=== PATIENT | female | born 1980 | race Caucasian/White ===

== ENCOUNTER 2016-11-20 22:38 | Emergency (ER) | payer MEDICAID ==
[2016-11-20 22:53] VITALS: BP 129/61
[2016-11-20] MEDS ORDERED: Ondansetron 4 MG/2 ML SDV IVPUSH ONE (23:28)
[2016-11-20] MEDS ORDERED: HYDROmorphone 1 MG/ML Syringe IVPUSH STA (23:28)
[2016-11-20] MEDS ORDERED: Sodium Chloride 0.9% 1,000 ML IV SCH (23:30)
--- NOTE | 2016-11-21 00:50 | EDM.PDOC ---
ED HPI GENERAL MEDICAL PROBLEM - General Chief Complaint: Abdominal Pain Stated Complaint: LOWER ABDOMINAL PAIN Time Seen by Provider: 11/20/16 22:53 Source of Information: Reports: Patient, RN Notes Reviewed, Significant Other ( Boyfriend) History Limitations: Reports: No Limitations - History of Present Illness INITIAL COMMENTS - FREE TEXT/NARRATIVE: The patient states that she has been experiencing sharp left lower quadrant abdominal pain for the past 2 weeks. She states that it is constant. It does not radiate. It is made worse if she sits up, and made better if she is supine. No change if she urinates or defecates. She states that she has had some nausea , but no emesis. She has had watery, nonbloody diarrhea for the past 2 or 3 days. No dysuria, urinary urgency or frequency, however, she does report that she has had about 5 episodes of seeing blood flecks in her urine over the past 10 days. No recent fever. No prior similar symptoms. The patient has never had a colonoscopy. The patient underwent a hysterectomy in August 2015. The patient does not have a PCP. Left Lower Abdomen Pain Score (Numeric/FACES): 8 - Related Data Allergies Allergy/AdvReac Type Severity Reaction Status Date / Time meperidine [From Demerol] Allergy Hives Verified 11/21/16 00:43 penicillin G Allergy Anaphylactic Verified 11/21/16 00:43 Shock Sulfa (Sulfonamide Allergy Hives Verified 11/21/16 00:43 Antibiotics) Home Meds: Home Meds Hydrocodone/Acetaminophen [[place] 5-325 Tablet] 1 - 2 tab PO Q6H PRN #20 tablet 11/21/16 [Rx] Levofloxacin [Levaquin] 750 mg PO QPM #7 tablet 11/21/16 [Rx] metroNIDAZOLE [Flagyl] 500 mg PO Q8H #21 tablet 11/21/16 [Rx] Past Medical History Gastrointestinal History: Reports: 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: - Past Surgical History HEENT Surgical History: Reports: Adenoidectomy, Myringotomy w Tube(s) (bilateral ), Tonsillectomy GI Surgical History: Reports: Cholecystectomy Female Surgical History: Reports: Section (x 1), Hysterectomy Musculoskeletal Surgical History: Reports: Arthroscopic Knee (right) Social & Family History - Tobacco Use Smoking Status *Q: Current Some Day Smoker Years of Tobacco use: 17 Packs/Tins Daily: 0.2 - Caffeine Use Caffeine Use: Reports: Coffee, Tea Other Caffeine Use: lots of coffee - Alcohol Use Alcohol Use History: Yes Alcohol Use Frequency: Socially - Recreational Drug Use Recreational Drug Use: No - Living Situation & Occupation Living situation: Reports: , with Significant Other (Boyfriend), with Family (4 kids) Occupation: Unemployed ED ROS GENERAL - Review of Systems Review Of Systems: See Below Constitutional: Reports: No Symptoms HEENT: Reports: No Symptoms Respiratory: Reports: No Symptoms Cardiovascular: Reports: No Symptoms Endocrine: Reports: No Symptoms GI/Abdominal: Reports: No Symptoms : Reports: No Symptoms Musculoskeletal: Reports: No Symptoms Skin: Reports: No Symptoms Neurological: Reports: No Symptoms Psychiatric: Reports: No Symptoms Hematologic/Lymphatic: Reports: No Symptoms Immunologic: Reports: No Symptoms ED EXAM, GI/ABD - Physical Exam Exam: See Below Exam Limited By: No Limitations General Appearance: Alert, WD/WN, No Apparent Distress Eyes: Bilateral: Normal Appearance, EOMI Ears: Normal External Exam, Hearing Grossly Normal Nose: Normal Inspection, No Blood Throat/Mouth: Normal Inspection, Normal Lips, Normal Voice, No Airway Compromise Head: Atraumatic, Normocephalic Neck: Normal Inspection, Full Range of Motion Respiratory/Chest: No Respiratory Distress, Lungs Clear, Normal Breath Sounds, No Accessory Muscle Use Cardiovascular: Normal Peripheral Pulses, Regular Rate, Rhythm, No Gallop, No JVD, No Murmur, No Rub GI/Abdominal: Normal Bowel Sounds, Soft, No Organomegaly, No Distention, No Abnormal Bruit, No Mass, Tenderness (LLQ only. Nontender elsewhere.), Other ( Obese). No: Rebound (Female) Exam: Deferred Rectal (Female) Exam: Deferred Back Exam: Normal Inspection, Full Range of Motion. No: CVA Tenderness (L), CVA Tenderness (R) Extremities: Normal Inspection, Normal Range of Motion, No Pedal Edema, Normal Capillary Refill Neurological: Alert, Oriented, Normal Cognition, No Motor/Sensory Deficits Psychiatric: Normal Affect Skin Exam: Warm, Dry, Intact, Normal Color, No Rash Lymphatic: No Adenopathy Course - Vital Signs Last Recorded V/S: Last Vital Signs Temp 36.8 C 11/20/16 22:52 Pulse 76 11/20/16 22:52 Resp 20 11/20/16 22:52 BP 129/61 11/20/16 22:52 Pulse Ox 98 11/20/16 22:52 - Orders/Labs/Meds Orders: Active Orders 24 hr Category Date Time Status Abdomen Pelvis w Cont [CT] Stat Exams 11/20/16 23:28 Taken Sodium Chloride 0.9% [Normal Saline] 1,000 ml Med 11/20/16 23:30 Active IV ASDIRECTED Medication Orders Sodium Chloride (Normal Saline) 1,000 mls @ 150 mls/hr IV ASDIRECTED BRISSA Last Admin: 11/20/16 23:52 Dose: 150 mls/hr Labs: Laboratory Tests 11/20/16 11/20/16 11/21/16 Range/Units 23:40 23:40 00:25 WBC 11.32 H (3.98-10.04) K/mm3 RBC 4.78 (3.98-5.22) M/mm3 Hgb 12.3 (11.2-15.7) gm/L Hct 37.3 (34.1-44.9) % MCV 78.0 L (79.4-94.8) fl MCH 25.7 (25.6-32.2) pg MCHC 33.0 (32.2-35.5) g/dl RDW Std Deviation 45.3 (36.4-46.3) fL Plt Count 309 (182-369) K/mm3 MPV 12.2 (9.4-12.3) fl Neutrophils % (Manual) 62 H (40-60) % Band Neutrophils % 0 (0-10) % Lymphocytes % (Manual) 27 (20-40) % Atypical Lymphs % 5 % Monocytes % (Manual) 4 (2-10) % Eosinophils % (Manual) 1 (0.7-5.8) % Basophils % (Manual) 1 (0.1-1.2) Platelet Estimate Adequate Plt Morphology Comment Normal Poikilocytosis 1+ slight Anisocytosis 1+ slight Microcytosis 1+ slight Tear Drop Cells 1+ slight RBC Morph Comment Abnormal Sodium 140 (136-145) mEq/L Potassium 3.7 (3.5-5.1) mEq/L Chloride 104 (98-107) mEq/L Carbon Dioxide 28 (21-32) mEq/L Anion Gap 11.7 (5-15) BUN 14 (7-18) mg/dL Creatinine 0.8 (0.55-1.02) mg/dL Est Cr Clr Drug Dosing 91.88 mL/min Estimated GFR (MDRD) > 60 (>60) mL/min BUN/Creatinine Ratio 17.5 (14-18) Glucose 134 H (74-106) mg/dL Calcium 8.7 (8.5-10.1) mg/dL Total Bilirubin 0.3 (0.2-1.0) mg/dL AST 14 L (15-37) U/L ALT 31 (14-59) U/L Alkaline Phosphatase 62 (46-116) U/L Total Protein 7.5 (6.4-8.2) g/dl Albumin 3.6 (3.4-5.0) g/dl Globulin 3.9 gm/dL Albumin/Globulin Ratio 0.9 L (1-2) Lipase 129 (73-393) U/L Urine Color Yellow (Yellow) Urine Appearance Slt cloudy H (Clear) Urine pH 7.0 (5.0-8.0) Ur Specific [place] 1.025 (1.005-1.030) Urine Protein Negative (Negative) Urine Glucose (UA) Negative (Negative) Urine Ketones Negative (Negative) Urine Occult Blood Negative (Negative) Urine Nitrite Negative (Negative) Urine Bilirubin Negative (Negative) Urine Urobilinogen 0.2 (0.2-1.0) Ur Leukocyte Esterase Negative (Negative) Urine RBC 0-5 (0-5) /hpf Urine WBC 0-5 (0-5) /hpf Ur Epithelial Cells 0-5 (0-5) /hpf Urine Bacteria Rare (FEW) /hpf Urine Mucus Many H (FEW) /hpf Meds: Medications Generic Name Dose Route Start Last Admin Trade Name Freq PRN Reason Stop Dose Admin Sodium Chloride 1,000 mls @ 150 mls/hr 11/20/16 23:30 11/20/16 23:52 Normal Saline IV 150 mls/hr ASDIRECTED BRISSA Administration Discontinued Medications Generic Name Dose Route Start Last Admin Trade Name Freq PRN Reason Stop Dose Admin Hydromorphone HCl 0.5 mg 11/20/16 23:28 11/20/16 23:55 Dilaudid IVPUSH 11/20/16 23:29 0.5 mg ONETIME STA Administration Hydromorphone HCl 0.5 mg 11/21/16 02:03 11/21/16 02:07 Dilaudid IVPUSH 11/21/16 02:04 0.5 mg ONETIME ONE Administration Levofloxacin 750 mg 11/21/16 02:31 Levaquin PO 11/21/16 02:32 ONETIME STA Metronidazole 500 mg 11/21/16 02:32 Flagyl PO 11/21/16 02:33 ONETIME STA Ondansetron HCl 4 mg 11/20/16 23:28 11/20/16 23:52 Zofran IVPUSH 11/20/16 23:29 4 mg ONETIME ONE Administration - Re-Assessments/Exams Free Text/Narrative Re-Assessment/Exam: 11/21/16 02:28 CT of the abdomen and pelvis with oral and IV contrast is read by [facility] as "Mild sigmoid colon diverticulitis changes." 11/21/16 02:42 Test results discussed with the patient and her . I have ordered oral Levaquin and Flagyl, and will e-prescribe a 7 day course. The patient meets criterion for outpatient management. I will prescribe Lafayette for pain. I will have the patient follow-up with Dr. Galvan on 11/25/2016. Departure - Departure Time of Disposition: 02:44 Disposition: Home, Self-Care 01 Condition: Fair Clinical Impression: Acute diverticulitis - Discharge Information Prescriptions: Hydrocodone/Acetaminophen [[place] 5-325 Tablet] 1 - 2 tab PO Q6H PRN #20 tablet PRN Reason: Pain (Severe 7-10) Referrals: PCP,None [Primary Care Provider] - Joan Galvan [Physician] - Forms: ED Department Discharge Additional Instructions: You were seen in the emergency room for lower left abdominal pain for the past 2 weeks. Workup in the ER included blood work, a urinalysis, and a CT scan of your abdomen and pelvis. The CT scan found diverticulitis, an infection of your descending colon. You have been started on the antibiotics Levaquin and Flagyl. Take one tablet of Levaquin each evening, starting 11/21/2016, as prescribed. Take one tablet of Flagyl every 8 hours, starting this morning, as prescribed. Finish these antibiotics, unless told otherwise by a doctor. Take 1 to 2 tablets of the pain medicine Lafayette every 6-8 hours, as needed for pain. If you take Lafayette, do not drive or operate heavy machinery for 12 hours afterwards. Lafayette will likely cause constipation, which you would like to avoid. Consider taking a liquid diet, or a low residue diet for the next few days. Follow-up with the family practitioner Dr. Lamar this coming 11/25/2016. If any other problems, please do not hesitate to return to the ER. - My Orders Last 24 Hours: My Active Orders 11/20/16 23:28 Abdomen Pelvis w Cont [CT] Stat 11/20/16 23:30 Sodium Chloride 0.9% [Normal Saline] 1,000 ml IV ASDIRECTED - Assessment/Plan Last 24 Hours: My Active Orders 11/20/16 23:28 Abdomen Pelvis w Cont [CT] Stat 11/20/16 23:30 Sodium Chloride 0.9% [Normal Saline] 1,000 ml IV ASDIRECTED
[2016-11-21] MEDS ORDERED: HYDROmorphone 0.5 MG/0.5 ML Syringe IVPUSH ONE (02:03)
[2016-11-21] MEDS ORDERED: Levofloxacin 750 MG Tab PO STA (02:31)
[2016-11-21] MEDS ORDERED: metroNIDAZOLE 500 MG Tab PO STA (02:32)
--- NOTE | 2016-11-24 14:55 | CT ---
CT abdomen and pelvis Technique: Multiple axial sections were obtained from above the dome of the diaphragm inferiorly through the pubic symphysis. Intravenous contrast was utilized. Oral contrast is also noted. Delayed images were obtained through the bladder. Findings: Mild inflammatory change is seen within the left lower abdomen near the junction of the descending and sigmoid regions. Diverticuli are seen within this area and findings are felt compatible with mild diverticulitis. No fluid collections are seen to indicate indicate abscess. Visualized lung bases show nothing acute. Liver shows no focal parenchymal abnormality. Small amount of contrast is seen within the distal esophagus compatible with reflux. Spleen appears within normal limits. Adrenal glands show no nodule. Kidneys show symmetric contrast enhancement without hydronephrosis or mass. Aorta shows no aneurysmal dilatation. Pancreas is within normal limits. No retroperitoneal adenopathy or mesenteric abnormalities are seen. Appendix is seen which appears to be normal. No pelvic mass or adenopathy is seen. Delayed images show contrast within the distal ureters and bladder. Bone window settings were reviewed which appear within normal limits for the patient's age. Incidental note of fat containing umbilical hernia. Impression: 1. Findings compatible with mild diverticulitis near the junction of the sigmoid and descending colon. 2. Contrast within the distal esophagus which is compatible with reflux. 3. Other incidental findings as noted above. Diagnostic code #3 I agree with preliminary report issued by [facility] ([facility] report finalized on 11/21/16, 3:15 AM Central Time)
== END 2016-11-21 03:00 | disposition home or self-care (01) ==
LOC: JD.ED 22:38
DX: K57.32 Diverticulitis of large intestine without perforation or abscess without bleeding (principal); F17.210 Nicotine dependence, cigarettes, uncomplicated; Z90.49 Acquired absence of other specified parts of digestive tract; Z98.890 Other specified postprocedural states; Z90.710 Acquired absence of both cervix and uterus; Z96.22 Myringotomy tube(s) status; Z88.0 Allergy status to penicillin; Z88.2 Allergy status to sulfonamides; Z88.6 Allergy status to analgesic agent
CPT/HCPCS: 36415; 74177; 80053; 81001; 83690; 85025; 96361; 96374; 96375; 96376; 99284; A9270; J1170; J2405; J7040; P9612; 99283

== ENCOUNTER 2016-11-28 12:13 | Emergency (ER) | payer MEDICAID ==
--- NOTE | 2016-11-28 14:35 | EDM.PDOC ---
[id number] Complaint: LEFT LEG PAIN Time Seen by Provider: 11/28/16 12:25 Source of Information: Reports: Patient History Limitations: Reports: No Limitations - History of Present Illness INITIAL COMMENTS - FREE TEXT/NARRATIVE: 36 -year-old female who is a history of provoked DVTs and context of and travel presents with left lower extremity swelling. She states that she's had swelling in her legs off and on for a while but has noticed worsening swelling in the left leg particularly over the past week. No injury. She has pain throughout the leg its worst in the lower leg area. Describes it as a burning pain. She was evaluated at an outside emergency department where an ultrasound was done and she was told that there is no blood clot and they were not certain why she was having pain in her leg. She comes in today for reevaluation because the pain and swelling seem to be worsening. No additional complaint. No fever. No numbness. No tingling. Left Leg Pain Score (Numeric/FACES): 8 - Related Data Allergies Allergy/AdvReac Type Severity Reaction Status Date / Time meperidine [From Demerol] Allergy Hives Verified 11/21/16 00:43 penicillin G Allergy Anaphylactic Verified 11/21/16 00:43 Shock Sulfa (Sulfonamide Allergy Hives Verified 11/21/16 00:43 Antibiotics) Home Meds: Home Meds Levofloxacin [Levaquin] 750 mg PO QPM #7 tablet 11/21/16 [Rx] metroNIDAZOLE [Flagyl] 500 mg PO Q8H #21 tablet 11/21/16 [Rx] Doxycycline [Vibramycin] 100 mg PO Q12HR #20 cap 11/28/16 [Rx] Ibuprofen 800 mg PO TID PRN #30 tablet 11/28/16 [Rx] Past Medical History Gastrointestinal History: Reports: 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: - Past Surgical History HEENT Surgical History: Reports: Adenoidectomy, Myringotomy w Tube(s), Tonsillectomy GI Surgical History: Reports: Cholecystectomy Female Surgical History: Reports: Section, Hysterectomy Musculoskeletal Surgical History: Reports: Arthroscopic Knee Social & Family History - Family History Family Medical History: Noncontributory - Tobacco Use Smoking Status *Q: Never Smoker Years of Tobacco use: 17 Packs/Tins Daily: 0.2 - Caffeine Use Caffeine Use: Reports: Coffee Other Caffeine Use: lots of coffee - Recreational Drug Use Recreational Drug Use: No - Living Situation & Occupation Living situation: Reports: , with Significant Other (Boyfriend), with Family (4 kids) Occupation: Unemployed Review of Systems - Review of Systems Review Of Systems: See Below Constitutional: Denies: Fever Eyes: Reports: No Symptoms Ears: Reports: No Symptoms Nose: Reports: No Symptoms Mouth/Throat: Reports: No Symptoms Respiratory: Denies: Shortness of Breath, Cough Cardiovascular: Denies: Chest Pain GI/Abdominal: Reports: No Symptoms Musculoskeletal: Reports: Leg Pain Neurological: Reports: No Symptoms Psychiatric: Reports: No Symptoms ED EXAM, GENERAL - Physical Exam Exam: See Below Exam Limited By: Intoxication General Appearance: Alert, WD/WN, No Apparent Distress Eye Exam: Bilateral Eye: PERRL Ears: Normal External Exam Nose: Normal Inspection Throat/Mouth: Normal Inspection Head: Atraumatic Neck: Normal Inspection Respiratory/Chest: No Respiratory Distress Cardiovascular: Normal Peripheral Pulses Peripheral Pulses: 2+: Dorsalis Pedis (L) Extremities: Other (LLE mild non-pitting edema, subtle mild erythema from ankle to knee, warm to touch, confluent, mildly tender throughout, no crepitus, skin intact, distal motor/perfusion intact) Neurological: Alert, Oriented, No Motor/Sensory Deficits Psychiatric: Normal Affect, Normal Mood Skin Exam: Warm, Dry, Intact, Normal Color Course - Vital Signs Last Recorded V/S: Last Vital Signs Temp 36.9 C 11/28/16 17:56 Pulse 65 11/28/16 17:56 Resp 15 11/28/16 17:56 BP 126/65 11/28/16 17:56 Pulse Ox 97 11/28/16 17:56 - Orders/Labs/Meds Labs: Laboratory Tests 11/28/16 11/28/16 Range/Units 16:25 16:25 WBC 9.14 (3.98-10.04) K/mm3 RBC 4.93 (3.98-5.22) M/mm3 Hgb 12.7 (11.2-15.7) gm/L Hct 39.3 (34.1-44.9) % MCV 79.7 (79.4-94.8) fl MCH 25.8 (25.6-32.2) pg MCHC 32.3 (32.2-35.5) g/dl RDW Std Deviation 46.6 H (36.4-46.3) fL Plt Count 298 (182-369) K/mm3 MPV 12.6 H (9.4-12.3) fl Neut % (Auto) 58.2 (34.0-71.1) % Lymph % (Auto) 24.7 (19.3-51.7) % [place] % (Auto) 8.9 (4.7-12.5) % Eos % (Auto) 7.5 H (0.7-5.8) Baso % (Auto) 0.5 (0.1-1.2) % Neut # (Auto) 5.31 (1.56-6.13) K/mm3 Lymph # (Auto) 2.26 (1.18-3.74) K/mm3 [place] # (Auto) 0.81 H (0.24-0.36) K/mm3 Eos # (Auto) 0.69 H (0.04-0.36) K/mm3 Baso # (Auto) 0.05 (0.01-0.08) K/mm3 Manual Slide Review Normal smear Sodium 140 (136-145) mEq/L Potassium 3.9 (3.5-5.1) mEq/L Chloride 103 (98-107) mEq/L Carbon Dioxide 30 (21-32) mEq/L Anion Gap 10.9 (5-15) BUN 15 (7-18) mg/dL Creatinine 0.8 (0.55-1.02) mg/dL Est Cr Clr Drug Dosing 95.45 mL/min Estimated GFR (MDRD) > 60 (>60) mL/min BUN/Creatinine Ratio 18.8 H (14-18) Glucose 92 (74-106) mg/dL Calcium 8.7 (8.5-10.1) mg/dL Total Bilirubin 0.6 (0.2-1.0) mg/dL AST 26 (15-37) U/L ALT 35 (14-59) U/L Alkaline Phosphatase 60 (46-116) U/L Total Protein 8.0 (6.4-8.2) g/dl Albumin 3.7 (3.4-5.0) g/dl Globulin 4.3 gm/dL Albumin/Globulin Ratio 0.9 L (1-2) Meds: Medications Discontinued Medications Generic Name Dose Route Start Last Admin Trade Name Freq PRN Reason Stop Dose Admin Doxycycline Hyclate 100 mg 11/28/16 17:17 11/28/16 17:41 Vibramycin PO 11/28/16 17:18 100 mg ONETIME ONE Administration Ibuprofen 800 mg 11/28/16 16:10 11/28/16 16:15 Motrin PO 11/28/16 16:11 800 mg ONETIME ONE Administration Ketorolac Tromethamine 30 mg 11/28/16 15:30 11/28/16 16:16 Toradol IVPUSH 11/28/16 15:31 Not Given ONETIME ONE - Re-Assessments/Exams Free Text/Narrative Re-Assessment/Exam: 11/28/16 17:18 U/S neg for DVT. Will treat for cellulitis. Discussed return precautions. Departure - Departure Time of Disposition: 17:18 Disposition: Home, Self-Care 01 Clinical Impression: Cellulitis of leg without foot, left - Discharge Information Prescriptions: Doxycycline [Vibramycin] 100 mg PO Q12HR #20 cap Ibuprofen 800 mg PO TID PRN #30 tablet PRN Reason: Pain Instructions: Cellulitis, Adult Referrals: PCP,None [Primary Care Provider] - Forms: ED Department Discharge Additional Instructions: 1. Take doxycycline as prescribed 2. Take ibuprofen as needed for pain 3. Follow up with primary doctor next week. Call [phone] if you'd like to schedule with a provider here 4. Return to the ED for a recheck if leg pain or swelling are getting worse, or if you get a fever, or for any other concerning symptoms
[2016-11-28] MEDS ORDERED: Ketorolac 30 MG/ML SDV IVPUSH ONE (15:30)
[2016-11-28] MEDS ORDERED: Ibuprofen 800 MG Tab PO ONE (16:10)
--- NOTE | 2016-11-28 16:54 | US ---
Left lower extremity deep venous ultrasound: Duplex and color flow imaging was obtained of the left common femoral, proximal greater saphenous, superficial femoral, popliteal, posterior tibial and peroneal veins. Right common femoral vein was also evaluated. Findings: Normal phasic flow, augmentation and compression is seen. Impression: 1. No evidence of deep venous thrombosis is seen within the left lower extremity or within the right common femoral vein. Diagnostic code #1
[2016-11-28] MEDS ORDERED: Doxycycline 100 MG Cap PO ONE (17:17)
[2016-11-28 18:05] VITALS: BP 126/65
== END 2016-11-28 17:49 | disposition home or self-care (01) ==
LOC: JD.ED 12:13
DX: L03.116 Cellulitis of left lower limb (principal); Z96.22 Myringotomy tube(s) status; Z90.710 Acquired absence of both cervix and uterus; Z90.49 Acquired absence of other specified parts of digestive tract; Z98.890 Other specified postprocedural states; Z88.0 Allergy status to penicillin; Z88.2 Allergy status to sulfonamides; Z88.6 Allergy status to analgesic agent
CPT/HCPCS: 36415; 80053; 85025; 93971; 99284; A9270; 99283

== ENCOUNTER 2016-12-21 11:22 | Emergency (ER) | payer MEDICAID ==
[2016-12-21 11:29] VITALS: BP 124/68
--- NOTE | 2016-12-21 12:06 | EDM.PDOC ---
ED HPI GENERAL MEDICAL PROBLEM - General Chief Complaint: Eye Problems Stated Complaint: L EYE REDNESS/SWELLING Time Seen by Provider: 12/21/16 11:48 Source of Information: Reports: Patient History Limitations: Reports: No Limitations - History of Present Illness INITIAL COMMENTS - FREE TEXT/NARRATIVE: The patient presents with left eye, redness, irritation and clear drainage. This all started this morning. She noticed it after she was at a garage sale. She put her contacts in this morning and everything looked good. She has since taken the contacts out. She does not think she got anything in her eye. She has no vision changes. Onset: Sudden Duration: Hour(s): Location: Reports: Other (Left eye) Quality: Reports: Other (Irritated) Severity: Mild Improves with: Reports: None Worsens with: Reports: None Context: Reports: Activity (She was at a garage sale after she noticed it) Associated Symptoms: Reports: No Other Symptoms Left Eye Pain Score (Numeric/FACES): 5 - Related Data Allergies Allergy/AdvReac Type Severity Reaction Status Date / Time meperidine [From Demerol] Allergy Hives Verified 12/21/16 11:29 penicillin G Allergy Anaphylactic Verified 12/21/16 11:29 Shock Sulfa (Sulfonamide Allergy Hives Verified 12/21/16 11:29 Antibiotics) Home Meds: Home Meds Loratadine [Claritin] 10 mg PO DAILY #10 tablet 12/21/16 [Rx] Past Medical History Gastrointestinal History: Reports: 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: - Past Surgical History HEENT Surgical History: Reports: Adenoidectomy, Myringotomy w Tube(s), Tonsillectomy GI Surgical History: Reports: Cholecystectomy Female Surgical History: Reports: Section, Hysterectomy Musculoskeletal Surgical History: Reports: Arthroscopic Knee Social & Family History - Family History Family Medical History: Noncontributory - Tobacco Use Smoking Status *Q: Never Smoker Years of Tobacco use: 17 Packs/Tins Daily: 0.2 - Caffeine Use Caffeine Use: Reports: Coffee Other Caffeine Use: lots of coffee - Recreational Drug Use Recreational Drug Use: No - Living Situation & Occupation Living situation: Reports: , with Significant Other (Boyfriend), with Family (4 kids) Occupation: Unemployed ED ROS GENERAL - Review of Systems Review Of Systems: See Below Constitutional: Reports: No Symptoms HEENT: Reports: Other (Eye irritation and redness) Respiratory: Reports: No Symptoms Cardiovascular: Reports: No Symptoms Endocrine: Reports: No Symptoms GI/Abdominal: Reports: No Symptoms : Reports: No Symptoms Musculoskeletal: Reports: No Symptoms Skin: Reports: No Symptoms Neurological: Reports: No Symptoms ED EXAM GENERAL W FULL EYE - Physical Exam Exam: See Below Exam Limited By: No Limitations General Appearance: Alert, No Apparent Distress Eye Exam: Left Eye: Conjunctival Injection (with edema to the lateral conjunctiva), Bilateral Eye: EOMI, PERRL Eyelids: Left: Lid Everted for Exam, Bilateral: Normal Appearance Conjunctiva & Sclera: Left: Conjunctival Edema, Injected Cornea Exam: Left: Normal Appearance Extraocular Movements: Bilateral: Intact Pupillary Size: Bilateral: 4 mm Pupillary Reaction: Bilateral: Brisk Anterior Chamber: Left: Normal Appearance Ears: Normal External Exam Nose: Normal Inspection Head: Atraumatic, Normocephalic Respiratory/Chest: No Respiratory Distress Course - Vital Signs Last Recorded V/S: Last Vital Signs Temp 97.4 F 12/21/16 11:24 Pulse 74 12/21/16 11:24 Resp 16 12/21/16 11:24 BP 124/68 12/21/16 11:24 Pulse Ox 98 12/21/16 11:24 - Re-Assessments/Exams Free Text/Narrative Re-Assessment/Exam: 12/21/16 12:05 I do not see a corneal abrasion and this does not appear to be a bacterial conjunctivitis. It appears to be an allergy. I will put her on some claritin daily for 10 days. Departure - Departure Time of Disposition: 12:10 Disposition: Home, Self-Care 01 Condition: Good Clinical Impression: Allergic conjunctivitis, left eye - Discharge Information Prescriptions: Loratadine [Claritin] 10 mg PO DAILY #10 tablet Referrals: Joan Galvan [Primary Care Provider] - Forms: ED Department Discharge Additional Instructions: Take the claritin daily for 10 days. Use visin drops. 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
== END 2016-12-21 12:25 | disposition home or self-care (01) ==
LOC: JD.ED 11:22
DX: H10.12 Acute atopic conjunctivitis, left eye (principal); Z88.0 Allergy status to penicillin; Z88.2 Allergy status to sulfonamides; Z88.8 Allergy status to other drugs, medicaments and biological substances; Z79.899 Other long term (current) drug therapy; Z96.22 Myringotomy tube(s) status; Z90.49 Acquired absence of other specified parts of digestive tract; Z90.710 Acquired absence of both cervix and uterus; Z98.890 Other specified postprocedural states
CPT/HCPCS: 99283

== ENCOUNTER 2017-01-08 08:10 | Day surgery (SDC) | payer MEDICAID ==
[~2017-01-08 08:10] MED LIST: Lactated Ringers 1,000 ML IV SCH; Lidocaine 1% 4 ML ONE; Lidocaine 1%/Sod Bicarbonate in NS 8.4% 1 ML Syringe PRN; Propofol 200 MG/20 ML SDV ONE; Sodium Chloride 0.9% 10 ML Syringe FLUSH PRN; fentaNYL 100 MCG/2 ML SDV ONE
--- NOTE | 2017-01-08 08:22 | PCM.PREANE ---
Preanesthetic Assessment - Procedure Proposed Procedure: Diagnostic Colonoscopy - Anesthesia/Transfusion/Family Hx Anesthesia History: Prior Anesthesia Without Reaction Family History of Anesthesia Reaction: No - Review of Systems General: No Symptoms Pulmonary: No Symptoms Cardiovascular: No Symptoms Gastrointestinal: No Symptoms Neurological: No Symptoms Other: Reports: None - Physical Assessment NPO Status Date: 01/07/30 NPO Status Time: 21:00 Pulse: 66 O2 Sat by Pulse Oximetry: 99 Respiratory Rate: 16 Blood Pressure: 126/35 Temperature: 97.8 C Height: 1.7 m Weight: 108.862 kg ASA Class: 2 Mental Status: Alert & Oriented x3 Airway Class: Mallampati = 2 Dentition: Reports: Normal Dentition Thyro-Mental Finger Breadths: 2 Mouth Opening Finger Breadths: 3 ROM/Head Extension: Full Lungs: Clear to Auscultation, Normal Respiratory Effort Cardiovascular: Regular Rate, Regular Rhythm - Allergies Allergies/Adverse Reactions: Allergies Allergy/AdvReac Type Severity Reaction Status Date / Time meperidine [From Demerol] Allergy Hives Verified 01/07/17 10:46 penicillin G Allergy Anaphylactic Verified 01/07/17 10:46 Shock Sulfa (Sulfonamide Allergy Hives Verified 01/07/17 10:46 Antibiotics) - Anesthesia Plan Pre-Op Medication Ordered: None - Acknowledgements Anesthesia Type Planned: MAC Pt an Appropriate Candidate for the Planned Anesthesia: Yes Alternatives and Risks of Anesthesia Discussed w Pt/Guardian: Yes Pt/Guardian Understands and Agrees with Anesthesia Plan: Yes PreAnesthesia Questionnaire HEENT History: Reports: None Cardiovascular History: Reports: None Respiratory History: Reports: None Gastrointestinal History: Reports: Diverticulosis, Other (See Below) Other Gastrointestinal History: Left lower quadrant abdominal pain, diarrhea Genitourinary History: Reports: Other (See Below) Other Genitourinary History: Candidida vaginitis 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: Musculoskeletal History: Reports: None Neurological History: Reports: None Psychiatric History: Reports: None Endocrine/Metabolic History: Reports: None Hematologic History: Reports: Other (See Below) Other Hematologic History: Blood clotting disorder (Patient stated she was on blood thinners for approximately 2 months after hysterectomy) Immunologic History: Reports: None Oncologic (Cancer) History: Reports: None Dermatologic History: Reports: Cellulitis - Infectious Disease History Infectious Disease History: Reports: None - Past Surgical History Head Surgeries/Procedures: Reports: None HEENT Surgical History: Reports: Adenoidectomy, Myringotomy w Tube(s), Tonsillectomy Cardiovascular Surgical History: Reports: None Respiratory Surgical History: Reports: None GI Surgical History: Reports: Cholecystectomy Female Surgical History: Reports: Section, Hysterectomy, Tubal Ligation Endocrine Surgical History: Reports: None Neurological Surgical History: Reports: None Musculoskeletal Surgical History: Reports: Arthroscopic Knee Dermatological Surgical History: Reports: None - SUBSTANCE USE Smoking Status *Q: Current Some Day Smoker Tobacco Use Within Last Twelve Months: Cigarettes Recreational Drug Use History: No - HOME MEDS Home Medications: Home Meds . [No Known Home Meds] 01/07/17 [History] - CURRENT (IN HOUSE) MEDS Current Meds: Current Medications Lactated Ringer's (Ringers, Lactated) 1,000 mls @ 125 mls/hr IV ASDIRECTED BRISSA Stop: 01/08/17 23:00 Lidocaine/Sodium Bicarbonate (Buffered Lidocaine 1% In Ns 8.4%) 0.25 ml .XX ONETIME PRN PRN Reason: Prior to IV Start Stop: 01/08/17 18:00 Sodium Chloride (Saline Flush) 10 ml FLUSH ASDIRECTED PRN PRN Reason: Keep Vein Open Stop: 01/08/17 18:00 Discontinued Medications Fentanyl (Sublimaze) Confirm Administered Dose 100 mcg .ROUTE .STK-MED ONE Stop: 01/08/17 07:23 Lidocaine HCl (Xylocaine-Mpf 1%) Confirm Administered Dose 4 mls @ as directed .ROUTE .STK-MED ONE Stop: 01/08/17 07:23 Propofol (Diprivan 20 Ml) Confirm Administered Dose 400 mg .ROUTE .STK-MED ONE Stop: 01/08/17 07:23
--- NOTE | 2017-01-08 09:47 | PCM.OPNOTE ---
- General Post-Op/Procedure Note Date of Surgery/Procedure: 01/08/17 Operative Procedure(s): Colonoscopy with rectal polypectomy using cold forceps 1 Findings: Sigmoid diverticulosis with scattered colonic diverticuli Anal tags Diminutive rectal polyp less than 5 mm in size Pre Op Diagnosis: History of diverticulitis with thickened sigmoid colon on CT scan Post-Op Diagnosis: 1. Anal tag. 2. Sigmoid diverticulosis. 3. Diminutive rectal polyp Anesthesia Technique: MAC, Moderate Sedation Primary Surgeon: Alejandro Sanchez Pathology: Small rectal polyp EBL in mLs: 0 Complications: None Condition: Good Free Text/Narrative:: After adequate IV sedation and analgesia was obtained the patient was placed on her left side. Perianal inspection revealed the anal tags. Digital rectal examination was normal. A lubricated colonoscope was inserted into the rectum and advanced to the cecum without difficulty. The bowel preparation was adequate. The cecum and ascending colon and transverse colons were endoscopically normal with no mass lesions or inflammatory changes seen. The descending colon had a few scattered diverticuli. Most of the diverticuli were seen in the sigmoid colon which was slightly tortuous and had thickened musculature. There were no acute features in this area. There were no mass lesions. Within the rectum there was a small polyp less than 5 mm in diameter which was removed with cold forceps. In the retroflexed rectal view the area was normal. Photographs were taken for the patient for the record. I removed air at the end of the procedure.
--- NOTE | 2017-01-08 09:51 | PCM48HPAN ---
Post Anesthesia Note - EVALUATION WITHIN 48HRS OF ANESTHETIC Vital Signs in Normal Range: Yes Patient Participated in Evaluation: Yes Respiratory Function Stable: Yes Airway Patent: Yes Cardiovascular Function Stable: Yes Hydration Status Stable: Yes Pain Control Satisfactory: Yes Nausea and Vomiting Control Satisfactory: Yes Mental Status Recovered: Yes
[2017-01-08 09:53] VITALS: BP 107/58
[2017-01-08] MEDS ORDERED: Ondansetron 4 MG/2 ML SDV ONE (09:57)
== END 2017-01-08 10:10 | disposition home or self-care (01) ==
LOC: JD.SDS 08:10
PROVIDERS: ATTEND Surgery
DX: K62.1 Rectal polyp (principal); K57.30 Diverticulosis of large intestine without perforation or abscess without bleeding; Z88.0 Allergy status to penicillin; Z88.2 Allergy status to sulfonamides; Z88.8 Allergy status to other drugs, medicaments and biological substances; E66.9 Obesity, unspecified; Z68.41 Body mass index [BMI] 40.0-44.9, adult; Z87.891 Personal history of nicotine dependence; Z90.710 Acquired absence of both cervix and uterus
CPT/HCPCS: 45380; J2405; J3010; J7120; 00810; J2704

== ENCOUNTER 2017-03-25 09:07 | Emergency (ER) | payer MEDICAID ==
[2017-03-25 09:36] VITALS: BP 140/81
[2017-03-25] MEDS ORDERED: Ibuprofen 800 MG Tab PO ONE (10:15)
--- NOTE | 2017-03-25 10:15 | EDM.PDOC ---
ED HPI GENERAL MEDICAL PROBLEM - General Chief Complaint: Lower Extremity Injury/Pain Stated Complaint: R KNEE INJURY Time Seen by Provider: 03/25/17 10:10 Source of Information: Reports: Patient History Limitations: Reports: No Limitations - History of Present Illness INITIAL COMMENTS - FREE TEXT/NARRATIVE: 36-year-old female presents to the ED with an acute injury to her right knee. Patient states she was walking to the mailbox this morning and tripped over a piece of rebar that is sticking up out of the ground near the mailbox. She landed on top of the ventral rebar with resultant contusion and abrasions to the right anterior lateral knee. She can barely weight-bear since time of injury which was 8:45 this morning. Onset: Today Onset Date: 03/25/17 Onset Time: 09:45 Duration: Minutes: Location: Reports: Lower Extremity, Right (Right knee and proximal tibia.) Quality: Reports: Ache, Burning Severity: Moderate Improves with: Reports: None Worsens with: Reports: Other Context: Reports: Trauma (Tripped and fell on top of the bent over piece of rebar sticking up out of the ground this morning.). 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.) Right Knee Pain Score (Numeric/FACES): 9 - Related Data Allergies Allergy/AdvReac Type Severity Reaction Status Date / Time meperidine [From Demerol] Allergy Hives Verified 03/25/17 09:35 penicillin G Allergy Anaphylactic Verified 03/25/17 09:35 Shock Sulfa (Sulfonamide Allergy Hives Verified 03/25/17 09:35 Antibiotics) Home Meds: Home Meds Levofloxacin [Levofloxacin] 750 mg PO DAILY 03/25/17 [History] oxyCODONE HCl/Acetaminophen [Percocet 5-325 mg Tablet] 1 - 2 each PO Q4H PRN # 15 tablet 03/25/17 [Rx] Past Medical History HEENT History: Reports: None Cardiovascular History: Reports: None Respiratory History: Reports: None Gastrointestinal History: Reports: Diverticulosis, Other (See Below) Other Gastrointestinal History: Left lower quadrant abdominal pain, diarrhea Genitourinary History: Reports: Other (See Below) Other Genitourinary History: Candidida vaginitis 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: Musculoskeletal History: Reports: None Neurological History: Reports: None Psychiatric History: Reports: None Endocrine/Metabolic History: Reports: None Hematologic History: Reports: Other (See Below) Other Hematologic History: Blood clotting disorder (Patient stated she was on blood thinners for approximately 2 months after hysterectomy) Immunologic History: Reports: None Oncologic (Cancer) History: Reports: None Dermatologic History: Reports: Cellulitis - Infectious Disease History Infectious Disease History: Reports: None - Past Surgical History Head Surgeries/Procedures: Reports: None HEENT Surgical History: Reports: Adenoidectomy, Myringotomy w Tube(s), Tonsillectomy Cardiovascular Surgical History: Reports: None Respiratory Surgical History: Reports: None GI Surgical History: Reports: Cholecystectomy Female Surgical History: Reports: Section, Hysterectomy, Tubal Ligation Endocrine Surgical History: Reports: None Neurological Surgical History: Reports: None Musculoskeletal Surgical History: Reports: Arthroscopic Knee Dermatological Surgical History: Reports: None Social & Family History - Family History Family Medical History: Noncontributory - Tobacco Use Smoking Status *Q: Current Some Day Smoker Years of Tobacco use: 17 Packs/Tins Daily: 0.2 - Caffeine Use Caffeine Use: Reports: Coffee Other Caffeine Use: lots of coffee - Recreational Drug Use Recreational Drug Use: No Drug Use in Last 12 Months: No - Living Situation & Occupation Living situation: Reports: , with Significant Other (Boyfriend), with Family (4 kids) Occupation: Unemployed Review of Systems - Review of Systems Review Of Systems: See Below Constitutional: Reports: No Symptoms Eyes: Reports: No Symptoms Ears: Reports: No Symptoms Nose: Reports: No Symptoms Mouth/Throat: Reports: No Symptoms Respiratory: Reports: No Symptoms Cardiovascular: Reports: No Symptoms GI/Abdominal: Reports: No Symptoms Musculoskeletal: Reports: No Symptoms Skin: Reports: No Symptoms Neurological: Reports: No Symptoms ED EXAM, GENERAL - Physical Exam Exam: See Below Exam Limited By: No Limitations General Appearance: Alert, WD/WN, Mild Distress Eye Exam: Bilateral Eye: Normal Inspection Respiratory/Chest: No Respiratory Distress, Lungs Clear, Normal Breath Sounds, No Accessory Muscle Use Cardiovascular: Normal Peripheral Pulses, Regular Rate, Rhythm, No Edema, No Gallop, No Murmur Extremities: Other (Examination shows swelling contusion and abrasions to the proximal tibia just adjacent to the tibial tuberosity laterally. She has painful extension of the joint as well as painful flexion. No true knee effusion noted.) Neurological: Alert, Oriented, CN II-XII Intact, Normal Cognition. No: Normal Gait Psychiatric: Normal Affect, Normal Mood Skin Exam: Warm, Dry, Intact, Normal Color, No Rash Course - Vital Signs Last Recorded V/S: Last Vital Signs Temp 36.1 C 03/25/17 09:30 Pulse 75 03/25/17 09:30 Resp 16 03/25/17 09:30 BP 140/81 03/25/17 09:30 Pulse Ox 98 03/25/17 09:30 - Orders/Labs/Meds Meds: Medications Discontinued Medications Generic Name Dose Route Start Last Admin Trade Name Guru PRN Reason Stop Dose Admin Ibuprofen 800 mg 03/25/17 10:15 03/25/17 10:29 Motrin PO 03/25/17 10:16 800 mg ONETIME ONE Administration - Radiology Interpretation Free Text/Narrative:: 36-year-old female presents the ED with an acute injury to her right knee this morning. She was walking to the mailbox and fairly there is a piece of rebar sticking up out of the ground that is bent over. This tripped up causing her to fall directly on the rebar with abrasion contusion to the proximal tibia just adjacent to the tibial tuberosity on the right knee. She has pain with flexion and extension. X-rays of the knee or tib-fib to be done. - Re-Assessments/Exams Free Text/Narrative Re-Assessment/Exam: 03/25/17 10:39 x-ray of the right knee is within normal limits. She appears to suffered a bony contusion. Treatment will be conservative with elevation and ice to the area one half hour out of every 4 hours today and tomorrow. I'm going to place her knee immobilizer so that she can walk straight leg and she would not be crutches in this regard. She'll use Motrin 600 mg every 6 hours to reduce pain and inflammation. I did supply 15 tablets of Percocet for initial pain relief since she struck the tibial tuberosity which will be quite painful for the next 10 days. 1 Departure - Departure Time of Disposition: 10:55 Disposition: Home, Self-Care 01 Condition: Fair Clinical Impression: Abrasion, right knee, initial encounter Contusion of right lower leg Qualifiers: Encounter type: initial encounter Qualified Code(s): S80.11XA - Contusion of right lower leg, initial encounter - Discharge Information Prescriptions: oxyCODONE HCl/Acetaminophen [Percocet 5-325 mg Tablet] 1 - 2 each PO Q4H PRN # 15 tablet PRN Reason: pain relief. Instructions: Contusion, [id number], Abrasion, [id number] Referrals: Joan Galvan [Primary Care Provider] - Forms: ED Department Discharge Additional Instructions: Evaluation the emergency room this morning in regards to acute onset of injury to the right knee greater than the left knee this morning when you tripped and fell over a piece of rebar. Suffered blunt trauma to the right anterior knee right over the tibial tuberosity where quadriceps tendon inserts. X-rays of the tib-fib and knee were obtained in the ED and do not reveal any bony injuries. Treatment is therefore conservative with rest and elevation Ice pack to the area -one half hour out of every 4 hours today and tomorrow. Daily cleanse the abrasions with soap and water. Showering is okay. Then apply topical antibiotic such as bacitracin or Polysporin to keep the wounds from getting secondary infection. Cover with a bandage if they're going to be rubbed on by clothing. Suggest knee immobilizer for the next 5-7 days to aid ambulation. Expect pain and swelling to be a little bit worse tomorrow as compared to the day and then gradually start to improve. Follow up with personal care physician if any further problems occur. Continue Motrin 600 mg every 6 hours as needed for pain relief and I did write a prescription for Percocet tablet often one Percocet tablet and 600 mg of Motrin does very well to control the pain for the next 3-4 days since it is a bone contusion.
--- NOTE | 2017-03-25 15:28 | CR ---
Right tibia and fibula: AP and lateral views of the right tibia and fibula were obtained. Comparison: No prior study. Plantar spur is seen. No fracture or other abnormality is identified. Impression: 1. Incidental plantar spur. 2. Nothing acute is seen on right tibia and fibula study. Diagnostic code #2
== END 2017-03-25 11:15 | disposition home or self-care (01) ==
LOC: JD.ED 09:07
DX: S80.11XA Contusion of right lower leg, initial encounter (principal); S80.211A Abrasion, right knee, initial encounter; F17.210 Nicotine dependence, cigarettes, uncomplicated; Z88.8 Allergy status to other drugs, medicaments and biological substances; Z88.0 Allergy status to penicillin; Z88.2 Allergy status to sulfonamides; Z79.899 Other long term (current) drug therapy; W01.0XXA Fall on same level from slipping, tripping and stumbling without subsequent striking against object, initial encounter
CPT/HCPCS: 73590; 99284; A9270; 99283

== ENCOUNTER 2017-06-17 16:04 | Emergency (ER) | payer MEDICAID ==
[2017-06-17 16:13] VITALS: BP 142/74
--- NOTE | 2017-06-17 17:07 | CT ---
Head CT Technique: Multiple axial sections through the brain were obtained. Comparison: No previous intracranial imaging. Findings: Ventricles along with basal cisterns and sulci over convexities are within normal limits. No abnormal parenchymal densities are seen. No evidence of intracranial hemorrhage. No midline shift or mass effect is seen. Bone window settings were reviewed which shows no acute calvarial abnormality. Visualized sinuses are clear. Impression: 1. No acute intracranial abnormality is identified on noncontrast head CT exam. Diagnostic code #1
--- NOTE | 2017-06-17 17:57 | EDM.PDOC ---
ED HPI GENERAL MEDICAL PROBLEM - General Chief Complaint: Neurological Problem Stated Complaint: DIZZY,TINGLING NUMBNESS IN BODY,SOB Time Seen by Provider: 06/17/17 16:15 Source of Information: Reports: Patient History Limitations: Reports: No Limitations - History of Present Illness INITIAL COMMENTS - FREE TEXT/NARRATIVE: The patient presents with dizziness for the past 3 weeks. She also has numbness in her tongue today. She also had some chest pain and she blacked out going up the stairs but she did not fall. She has a headache to the back of her head at times. She has nausea but no vomiting. She denies fever or chills. She describes the dizziness as floating. She has no cough or shortness of breath. She has no abdominal pain. Onset: Gradual Duration: Week(s): Location: Reports: Head Quality: Reports: Pressure Severity: Moderate Improves with: Reports: None Worsens with: Reports: None Associated Symptoms: Reports: Headaches, Nausea/Vomiting. Denies: Chest Pain, Cough, Fever/Chills, Shortness of Breath - Related Data Allergies Allergy/AdvReac Type Severity Reaction Status Date / Time meperidine [From Demerol] Allergy Hives Verified 06/17/17 16:09 penicillin G Allergy Anaphylactic Verified 06/17/17 16:09 Shock Sulfa (Sulfonamide Allergy Hives Verified 06/17/17 16:09 Antibiotics) Home Meds: Home Meds Meclizine [Antivert] 25 mg PO Q6H PRN #20 tab 06/17/17 [Rx] Past Medical History HEENT History: Reports: None Cardiovascular History: Reports: None Respiratory History: Reports: None Gastrointestinal History: Reports: Diverticulosis, Other (See Below) Other Gastrointestinal History: Left lower quadrant abdominal pain, diarrhea Genitourinary History: Reports: None Other Genitourinary History: Candidida vaginitis [employer]OR [employer] History: Reports: Musculoskeletal History: Reports: None Neurological History: Reports: Migraines Psychiatric History: Reports: Anxiety Endocrine/Metabolic History: Reports: Hypothyroidism Hematologic History: Reports: None Other Hematologic History: Blood clotting disorder (Patient stated she was on blood thinners for approximately 2 months after hysterectomy) Immunologic History: Reports: None Oncologic (Cancer) History: Reports: None Dermatologic History: Reports: Cellulitis - Infectious Disease History Infectious Disease History: Reports: None - Past Surgical History Head Surgeries/Procedures: Reports: None HEENT Surgical History: Reports: Adenoidectomy, Myringotomy w Tube(s), Tonsillectomy Cardiovascular Surgical History: Reports: None Respiratory Surgical History: Reports: None GI Surgical History: Reports: Cholecystectomy Female Surgical History: Reports: Section, Hysterectomy, Tubal Ligation Endocrine Surgical History: Reports: None Neurological Surgical History: Reports: None Musculoskeletal Surgical History: Reports: Arthroscopic Knee Dermatological Surgical History: Reports: None Social & Family History - Family History Family Medical History: Noncontributory - Tobacco Use Smoking Status *Q: Never Smoker Years of Tobacco use: 17 Packs/Tins Daily: 0.2 - Caffeine Use Caffeine Use: Reports: Coffee Other Caffeine Use: lots of coffee - Recreational Drug Use Recreational Drug Use: No Drug Use in Last 12 Months: No - Living Situation & Occupation Living situation: Reports: , with Significant Other (Boyfriend), with Family (4 kids) Occupation: Unemployed ED ROS GENERAL - Review of Systems Review Of Systems: See Below Constitutional: Reports: No Symptoms HEENT: Reports: No Symptoms Respiratory: Reports: No Symptoms Cardiovascular: Reports: Chest Pain Endocrine: Reports: No Symptoms GI/Abdominal: Reports: Nausea. Denies: Abdominal Pain, Vomiting : Reports: No Symptoms Musculoskeletal: Reports: No Symptoms Neurological: Reports: Dizziness, Headache ED EXAM, NEURO - Physical Exam Exam: See Below Exam Limited By: No Limitations General Appearance: Alert, No Apparent Distress Ears: Normal External Exam Nose: Normal Inspection Head Exam: Atraumatic, Normocephalic Neck: Normal Inspection Respiratory/Chest: No Respiratory Distress, Lungs Clear, Normal Breath Sounds Cardiovascular: Regular Rate, Rhythm, No Edema, No Murmur GI/Abdominal: Soft, Non-Tender, No Organomegaly, No Mass Neurological: Alert, No Motor/Sensory Deficits, Oriented x 3 Course - Vital Signs Last Recorded V/S: Last Vital Signs Temp 98.0 F 06/17/17 16:09 Pulse 82 06/17/17 16:09 Resp 20 06/17/17 16:09 BP 142/74 H 06/17/17 16:09 Pulse Ox 99 06/17/17 16:09 - Orders/Labs/Meds Orders: Active Orders 24 hr Category Date Time Status Cardiac Monitoring [RC] . DIRECTED Care 06/17/17 16:25 Active EKG Documentation Completion [RC] ASDIRECTED Care 06/17/17 17:56 Active CXR [Chest 1V Frontal] [CR] Stat Exams 06/17/17 16:25 Taken EKG 12 Lead [EK] Stat Ther 06/17/17 17:56 Ordered Labs: Laboratory Tests 06/17/17 06/17/17 06/17/17 Range/Units 16:40 16:40 16:40 WBC 10.34 H (3.98-10.04) K/mm3 RBC 5.01 (3.98-5.22) M/mm3 Hgb 13.1 (11.2-15.7) gm/L Hct 40.0 (34.1-44.9) % MCV 79.8 (79.4-94.8) fl MCH 26.1 (25.6-32.2) pg MCHC 32.8 (32.2-35.5) g/dl RDW Std Deviation 43.4 (36.4-46.3) fL Plt Count 327 (182-369) K/mm3 MPV 12.2 (9.4-12.3) fl Neut % (Auto) 61.6 (34.0-71.1) % Lymph % (Auto) 24.7 (19.3-51.7) % Knox % (Auto) 6.5 (4.7-12.5) % Eos % (Auto) 6.5 H (0.7-5.8) Baso % (Auto) 0.4 (0.1-1.2) % Neut # (Auto) 6.38 H (1.56-6.13) K/mm3 Lymph # (Auto) 2.55 (1.18-3.74) K/mm3 Knox # (Auto) 0.67 H (0.24-0.36) K/mm3 Eos # (Auto) 0.67 H (0.04-0.36) K/mm3 Baso # (Auto) 0.04 (0.01-0.08) K/mm3 D-Dimer, Quantitative (0.19-0.59) mg/L Sodium 141 (136-145) mEq/L Potassium 3.8 (3.5-5.1) mEq/L Chloride 103 (98-107) mEq/L Carbon Dioxide 28 (21-32) mEq/L Anion Gap 13.8 (5-15) BUN 14 (7-18) mg/dL Creatinine 0.8 (0.55-1.02) mg/dL Est Cr Clr Drug Dosing 91.88 mL/min Estimated GFR (MDRD) > 60 (>60) mL/min BUN/Creatinine Ratio 17.5 (14-18) Glucose 113 H (74-106) mg/dL Calcium 9.1 (8.5-10.1) mg/dL Total Bilirubin 0.2 (0.2-1.0) mg/dL AST 14 L (15-37) U/L ALT 33 (14-59) U/L Alkaline Phosphatase 64 (46-116) U/L Troponin I < 0.017 (0.00-0.056) ng/mL Total Protein 7.8 (6.4-8.2) g/dl Albumin 3.5 (3.4-5.0) g/dl Globulin 4.3 gm/dL Albumin/Globulin Ratio 0.8 L (1-2) HCG, Qual Negative (NEGATIVE) 06/17/17 Range/Units 16:40 WBC (3.98-10.04) K/mm3 RBC (3.98-5.22) M/mm3 Hgb (11.2-15.7) gm/L Hct (34.1-44.9) % MCV (79.4-94.8) fl MCH (25.6-32.2) pg MCHC (32.2-35.5) g/dl RDW Std Deviation (36.4-46.3) fL Plt Count (182-369) K/mm3 MPV (9.4-12.3) fl Neut % (Auto) (34.0-71.1) % Lymph % (Auto) (19.3-51.7) % Knox % (Auto) (4.7-12.5) % Eos % (Auto) (0.7-5.8) Baso % (Auto) (0.1-1.2) % Neut # (Auto) (1.56-6.13) K/mm3 Lymph # (Auto) (1.18-3.74) K/mm3 Knox # (Auto) (0.24-0.36) K/mm3 Eos # (Auto) (0.04-0.36) K/mm3 Baso # (Auto) (0.01-0.08) K/mm3 D-Dimer, Quantitative 0.52 (0.19-0.59) mg/L Sodium (136-145) mEq/L Potassium (3.5-5.1) mEq/L Chloride (98-107) mEq/L Carbon Dioxide (21-32) mEq/L Anion Gap (5-15) BUN (7-18) mg/dL Creatinine (0.55-1.02) mg/dL Est Cr Clr Drug Dosing mL/min Estimated GFR (MDRD) (>60) mL/min BUN/Creatinine Ratio (14-18) Glucose (74-106) mg/dL Calcium (8.5-10.1) mg/dL Total Bilirubin (0.2-1.0) mg/dL AST (15-37) U/L ALT (14-59) U/L Alkaline Phosphatase (46-116) U/L Troponin I (0.00-0.056) ng/mL Total Protein (6.4-8.2) g/dl Albumin (3.4-5.0) g/dl Globulin gm/dL Albumin/Globulin Ratio (1-2) HCG, Qual (NEGATIVE) Meds: Medications Discontinued Medications Generic Name Dose Route Start Last Admin Trade Name Guru PRN Reason Stop Dose Admin Meclizine HCl 25 mg 06/17/17 16:26 06/17/17 16:34 Antivert PO 06/17/17 16:27 25 mg ONETIME ONE Administration - Re-Assessments/Exams Free Text/Narrative Re-Assessment/Exam: 06/17/17 17:57 I ordered an EKG, CT of her head, CXR and labs. 06/17/17 17:[address] of her head shows nothing acute. Her CXR looks good. Her WBC was slightly elevated at 10.34. Her D-dimer was negative. Her CMP looks good. Her troponin is negative. Her HCG is negative. Her EKG shows a NSR with no acute changes. 06/17/17 18:05 Her EKG shows nothing acute. I will discharge her with some antivert for the dizziness. Departure - Departure Time of Disposition: 18:05 Disposition: Home, Self-Care 01 Condition: Good Clinical Impression: Atypical chest pain, Near syncope, Dizziness Headache Qualifiers: Headache type: unspecified Headache chronicity pattern: acute headache Intractability: not intractable Qualified Code(s): R51 - Headache - Discharge Information Prescriptions: Meclizine [Antivert] 25 mg PO Q6H PRN #20 tab PRN Reason: Dizziness Referrals: Joan Galvan [Primary Care Provider] - 1 Week Forms: ED Department Discharge Additional Instructions: Take the antivert every 6 hours as needed for dizziness. Follow up with Dr Lamar in 1 week. Please return if you are worse. - My Orders Last 24 Hours: My Active Orders 06/17/17 16:25 Cardiac Monitoring [RC] . DIRECTED CXR [Chest 1V Frontal] [CR] Stat 06/17/17 17:56 EKG Documentation Completion [RC] ASDIRECTED EKG 12 Lead [EK] Stat - Assessment/Plan Last 24 Hours: My Active Orders 06/17/17 16:25 Cardiac Monitoring [RC] . DIRECTED CXR [Chest 1V Frontal] [CR] Stat 06/17/17 17:56 EKG Documentation Completion [RC] ASDIRECTED EKG 12 Lead [EK] Stat
--- NOTE | 2017-06-18 06:25 | CR ---
Chest: Portable view of the chest was obtained. Comparison: No prior chest x-ray. Heart size and mediastinum are normal. Right hemidiaphragm is slightly elevated which is felt to be incidental. Lungs are clear without acute pulmonary densities. Bony structures are grossly intact. Impression: 1. Nothing acute is identified on portable chest x-ray. Diagnostic code #1
== END 2017-06-17 18:17 | disposition home or self-care (01) ==
LOC: JD.ED 16:04
DX: R55 Syncope and collapse (principal); R07.89 Other chest pain; R51 Headache; Z88.0 Allergy status to penicillin; Z88.2 Allergy status to sulfonamides; Z88.8 Allergy status to other drugs, medicaments and biological substances
CPT/HCPCS: 36415; 70450; 71045; 80053; 84484; 84703; 85025; 85379; 93005; 99285; A9270; 93010; 99284-25

== ENCOUNTER 2017-08-29 08:51 | Emergency (ER) | payer MEDICAID ==
[2017-08-29 09:02] VITALS: BP 136/82
[2017-08-29] MEDS ORDERED: Acetaminophen/HYDROcodone 325-5 MG Tab PO ONE (09:56)
--- NOTE | 2017-08-29 10:32 | EDM.PDOC ---
ED HPI GENERAL MEDICAL PROBLEM - General Chief Complaint: Lower Extremity Injury/Pain Stated Complaint: RT KNEE PAIN Time Seen by Provider: 08/29/17 09:44 Source of Information: Reports: Patient History Limitations: Reports: No Limitations - History of Present Illness INITIAL COMMENTS - FREE TEXT/NARRATIVE: The patient states that she was getting out of her car around 08:30 this morning , and somehow twisted her right knee. She states that it just gave out, and she felt a "pop", although did not fall. She presents with pain primarily to the patellar tendon, even at rest, but made worse with movement. She states that she has had numerous injuries to the right knee, primarily in high school. She states that she underwent an arthroscopic of the knee and 2011 , and the cartilage was scraped. She states that it has been recommended that she have another surgery, eventually. She states that her knee goes out often. The patient is otherwise uninjured. The patient's PCP is Dr. Galvan. Right Knee Pain Score (Numeric/FACES): 10 - Related Data Allergies Allergy/AdvReac Type Severity Reaction Status Date / Time meperidine [From Demerol] Allergy Hives Verified 08/29/17 09:00 penicillin G Allergy Anaphylactic Verified 08/29/17 09:00 Shock Sulfa (Sulfonamide Allergy Hives Verified 08/29/17 09:00 Antibiotics) Home Meds: Home Meds Acetaminophen/HYDROcodone [Trenton 325-5 MG] 1 - 2 tab PO Q6H PRN #12 tablet 08/29 [Rx] methylPREDNISolone [Medrol] 4 mg PO DAILY #2 dospk 08/29/17 [Rx] Past Medical History HEENT History: Reports: Allergic Rhinitis Cardiovascular History: Reports: Other (See Below) (Long QT syndrome) Gastrointestinal History: Reports: Diverticulosis [employer] SPECIALIST History: Reports: Endocrine/Metabolic History: Reports: Obesity/BMI 30+ - Past Surgical History HEENT Surgical History: Reports: Adenoidectomy, Myringotomy w Tube(s) (bilateral , x 3), Tonsillectomy GI Surgical History: Reports: Cholecystectomy Female Surgical History: Reports: Section (x 1), Hysterectomy, Oophorectomy (unilateral), Tubal Ligation Musculoskeletal Surgical History: Reports: Arthroscopic Knee (right, 2010) Social & Family History - Family History Family Medical History: Noncontributory - Tobacco Use Smoking Status *Q: Current Some Day Smoker Years of Tobacco use: 20 Packs/Tins Daily: 0.2 Packs/Tins Daily Comment: Down from 1 ppd - Caffeine Use Caffeine Use: Reports: None Other Caffeine Use: lots of coffee - Alcohol Use Alcohol Use History: Yes Alcohol Use Frequency: Socially - Recreational Drug Use Recreational Drug Use: No - Living Situation & Occupation Living situation: Reports: , with Significant Other (Fiance), with Family (4 kids) 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 ED EXAM, GENERAL - Physical Exam Exam: See Below Exam Limited By: No Limitations General Appearance: Alert, WD/WN, Mild Distress (Tearful) Extremities: Other (No visible abnormality to the right knee, when compared to the left, such as swelling, erythema, ecchymosis, abrasion, or obvious effusion. The patient reports tenderness primarily to palpation of the patellar tendon, none to the quadriceps tendon. She also reports tenderness to palpation of the medial aspect of the knee, but minimal or no tenderness to the lateral or posterior aspect of the knee. Pain is induced in the medial aspect of the knee with stressing of the lateral collateral ligament, but no pain to the medial knee with stressing of the medial collateral ligament. Patient reports pain with anterior drawer sign, but none with posterior drawer sign. Neurovascular status of the right lower extremity is intact.) Course - Vital Signs Last Recorded V/S: Last Vital Signs Temp 36.6 C 08/29/17 08:58 Pulse 97 08/29/17 08:58 Resp 17 08/29/17 08:58 BP 136/82 08/29/17 08:58 Pulse Ox 99 08/29/17 08:58 - Orders/Labs/Meds Meds: Medications Discontinued Medications Generic Name Dose Route Start Last Admin Trade Name Freq PRN Reason Stop Dose Admin Hydrocodone Bitart/Acetaminophen 2 tab 08/29/17 09:56 08/29/17 10:04 Trenton 325-5 Mg PO 08/29/17 09:57 2 tab ONETIME ONE Administration - Re-Assessments/Exams Free Text/Narrative Re-Assessment/Exam: 08/29/17 10:26 3-view radiographs of the right knee appears to be grossly unremarkable. No bony injury, such as fracture or dislocation identified. Arthritic changes notes. Formal read per the Radiologist pending. 08/29/17 10:[address] Verde at 10:27. He was able to review the radiographs. He recommends 2 Medrol Dosepaks, serially, then have the patient follow-up in his office. He does not want the patient in a knee immobilizer. In addition to the above, I will also prescribe some Trenton. 08/29/17 10:56 3 view radiographs of the right knee is read by Dr. Omalley as: 1. Slight degenerative change. Nothing acute is appreciated on right knee exam. Departure - Departure Time of Disposition: 10:30 Disposition: Home, Self-Care 01 Condition: Fair Clinical Impression: Arthritis of right knee, Right knee pain - Discharge Information Prescriptions: Acetaminophen/HYDROcodone [Trenton 325-5 MG] 1 - 2 tab PO Q6H PRN #12 tablet PRN Reason: Pain (Severe 7-10) methylPREDNISolone [Medrol] 4 mg PO DAILY #2 dospk Instructions: Arthritis Referrals: Joan Galvan [Primary Care Provider] - Thiago Verde MD [Physician] - Forms: ED Department Discharge Additional Instructions: You were seen in the emergency room after twisting your right knee. Workup in the ER included x-rays of your right knee, which did not show any acute injury. Your case was discussed with the Orthopedic Surgeon Dr. Verde, who also reviewed your x-rays. He recommended that you take 2 Medrol Dosepaks, one right after the other. A prescription for this has been sent to [facility]. For pain, we recommend you take [id number] ibuprofen, 3-4 tablets (600- 800 mg) every 8 hours, with food. You have also been prescribed the narcotic pain reliever Trenton. Take 1-2 tablets up to every 6 hours, as needed for pain not relieved by ibuprofen. If you take Trenton, do not drive for 10 hours afterwards. Trenton may cause constipation, so consider taking a stool softener. Despite the pain, Dr. Verde wants you to continue to use your knee. You are to follow-up with Dr. Verde at the next available appointment. If any other problems, please do not hesitate to return to the ER.
--- NOTE | 2017-08-29 10:44 | CR ---
Right knee: AP, lateral and sunrise patellar views of the right knee were obtained. Comparison: No previous study. Medial and lateral joint spaces are preserved. Calcification is noted off the upper epicondyle of the distal medial femur which is felt to be old and incidental. No discrete joint effusion is seen. Minimal spurring is noted off the patella. No acute fracture or other bony abnormality is appreciated. Impression: 1. Slight degenerative change. Nothing acute is appreciated on right knee exam. Diagnostic code #2
== END 2017-08-29 10:58 | disposition home or self-care (01) ==
LOC: JD.ED 08:51
DX: M17.11 Unilateral primary osteoarthritis, right knee (principal); F17.210 Nicotine dependence, cigarettes, uncomplicated; E66.9 Obesity, unspecified; X50.1XXA Overexertion from prolonged static or awkward postures, initial encounter; Z88.0 Allergy status to penicillin; Z88.8 Allergy status to other drugs, medicaments and biological substances; Z88.2 Allergy status to sulfonamides; Z90.49 Acquired absence of other specified parts of digestive tract; Z68.42 Body mass index [BMI] 45.0-49.9, adult
CPT/HCPCS: 73562; 99284; A9270; 99283

== ENCOUNTER 2017-11-28 11:12 | Emergency (ER) | payer MEDICAID ==
[2017-11-28 11:24] VITALS: BP 135/79
[2017-11-28] MEDS ORDERED: Sodium Chloride 0.9% 10 ML Syringe FLUSH PRN ×2 (11:42→11:47)
[2017-11-28] MEDS ORDERED: Iopamidol 612 MG/ML 100 ML Bottle IVPUSH ONE (11:47)
--- NOTE | 2017-11-28 11:53 | EDM.PDOC ---
ED HPI GENERAL MEDICAL PROBLEM - General Chief Complaint: ENT Problem Stated Complaint: SIDE OF FACE IS SWOLLEN Time Seen by Provider: 11/28/17 11:26 Source of Information: Reports: Patient History Limitations: Reports: No Limitations - History of Present Illness INITIAL COMMENTS - FREE TEXT/NARRATIVE: 37-year-old female presents for evaluation and treatment of swelling to the left side of her face. Patient reports that she did not notice any when she woke up this morning. She states she was eating some hashbrowns about 1 hour prior to arrival in the ER. She reported immediate swelling to the preauricular and submandibular area on the left side of her face. She reports dysphagia and odynophagia. No shortness of breath, fevers, cough or cold symptoms. No hives. patient reports no treatments prior to arrival in the ER. Reports this occurred on one other occasion but she felt today was worse than the previous occasion therefore she decided to be checked out today. Reports a history of hypothyroidism, not currently taking her medication as she no longer has insurance at this time. Previous surgeries include a tonsilectomy. Onset: Today, Sudden Location: Reports: Face (left pre auricular and submandibular) Left Face Pain Score (Numeric/FACES): 7 - Related Data Allergies Allergy/AdvReac Type Severity Reaction Status Date / Time meperidine [From Demerol] Allergy Hives Verified 08/29/17 09:00 penicillin G Allergy Anaphylactic Verified 08/29/17 09:00 Shock Sulfa (Sulfonamide Allergy Hives Verified 08/29/17 09:00 Antibiotics) Home Meds: Home Meds . [No Known Home Meds] 11/28/17 [History] Past Medical History HEENT History: Reports: Allergic Rhinitis Cardiovascular History: Reports: Other (See Below) (Long QT syndrome) Other Cardiovascular History: "long QT syndrome" Respiratory History: Reports: None Gastrointestinal History: Reports: Diverticulosis Other Gastrointestinal History: Left lower quadrant abdominal pain, diarrhea Genitourinary History: Reports: None Other Genitourinary History: Candidida vaginitis [employer] History: Reports: Musculoskeletal History: Reports: None Neurological History: Reports: Migraines Psychiatric History: Reports: Anxiety Endocrine/Metabolic History: Reports: Hypothyroidism, Obesity/BMI 30+ Hematologic History: Reports: None Other Hematologic History: Blood clotting disorder (Patient stated she was on blood thinners for approximately 2 months after hysterectomy) Immunologic History: Reports: None Oncologic (Cancer) History: Reports: None Dermatologic History: Reports: Cellulitis - Infectious Disease History Infectious Disease History: Reports: None - Past Surgical History Head Surgeries/Procedures: Reports: None HEENT Surgical History: Reports: Adenoidectomy, Myringotomy w Tube(s), Tonsillectomy Respiratory Surgical History: Reports: None GI Surgical History: Reports: Cholecystectomy Female Surgical History: Reports: Section, Hysterectomy, Oophorectomy, Tubal Ligation Neurological Surgical History: Reports: None Musculoskeletal Surgical History: Reports: Arthroscopic Knee Dermatological Surgical History: Reports: None Social & Family History - Family History Family Medical History: Noncontributory - Tobacco Use Smoking Status *Q: Current Some Day Smoker Years of Tobacco use: 18 Packs/Tins Daily: 0 - Caffeine Use Caffeine Use: Reports: None Other Caffeine Use: lots of coffee - Recreational Drug Use Recreational Drug Use: No - Living Situation & Occupation Living situation: Reports: , with Significant Other (Fiance), with Family (4 kids) 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 Denies: Ear Pain, Throat Pain, Throat Swelling Respiratory: Denies: Shortness of Breath, Cough Skin: Denies: Rash, Erythema ED EXAM, ENT - Physical Exam Exam: See Below Exam Limited By: No Limitations General Appearance: Alert, WD/WN, No Apparent Distress Eye Exam: Bilateral Eye: Normal Inspection Ears: Normal External Exam, Normal Canal, Hearing Grossly Normal, Normal TMs Nose: Normal Inspection Mouth/Throat: Normal Inspection, Normal Gums, Normal Lips, Normal Teeth, Other ( absent tonsils). No: Hoarse Voice, Peritonsillar Mass, Uvular Deviation, Uvular Edema Head: Facial Swelling (minimal to the left preauricular area), Facial Tenderness (left preauricular) Neck: Normal Inspection, Lymphadenopathy (R). No: Lymphadenopathy (L) Respiratory/Chest: No Respiratory Distress, Lungs Clear, Normal Breath Sounds Cardiovascular: Normal Peripheral Pulses, Regular Rate, Rhythm, No Murmur Neurological: Alert, Oriented, Normal Cognition Psychiatric: Normal Affect, Normal Mood Skin: Warm, Dry, Normal Color Course - Vital Signs Last Recorded V/S: Last Vital Signs Temp 98 F 11/28/17 11:21 Pulse 67 11/28/17 11:21 Resp 22 H 11/28/17 11:21 BP 135/79 11/28/17 11:21 Pulse Ox 100 11/28/17 11:21 - Orders/Labs/Meds Labs: Laboratory Tests 11/28/17 11/28/17 Range/Units 11:51 11:51 WBC 10.02 (3.98-10.04) K/mm3 RBC 4.89 (3.98-5.22) M/mm3 Hgb 13.3 (11.2-15.7) gm/L Hct 40.4 (34.1-44.9) % MCV 82.6 (79.4-94.8) fl MCH 27.2 (25.6-32.2) pg MCHC 32.9 (32.2-35.5) g/dl RDW Std Deviation 46.1 (36.4-46.3) fL Plt Count 276 (182-369) K/mm3 MPV 12.5 H (9.4-12.3) fl Neutrophils % (Manual) 43 (40-60) % Band Neutrophils % 0 (0-10) % Lymphocytes % (Manual) 27 (20-40) % Atypical Lymphs % 2 % Monocytes % (Manual) 23 H (2-10) % Eosinophils % (Manual) 5 (0.7-5.8) % Basophils % (Manual) 0 L (0.1-1.2) Platelet Estimate Adequate Plt Morphology Comment Normal RBC Morph Comment Normal Sodium 139 (136-145) mEq/L Potassium 3.9 (3.5-5.1) mEq/L Chloride 104 (98-107) mEq/L Carbon Dioxide 26 (21-32) mEq/L Anion Gap 12.9 (5-15) BUN 17 (7-18) mg/dL Creatinine 0.9 (0.55-1.02) mg/dL Est Cr Clr Drug Dosing 84.03 mL/min Estimated GFR (MDRD) > 60 (>60) mL/min BUN/Creatinine Ratio 18.9 H (14-18) Glucose 136 H (74-106) mg/dL Calcium 8.5 (8.5-10.1) mg/dL C-Reactive Protein 1.2 H* (<1.0) mg/dL Meds: Medications Discontinued Medications Generic Name Dose Route Start Last Admin Trade Name Charlesq PRN Reason Stop Dose Admin Iopamidol 100 ml 11/28/17 11:47 11/28/17 12:08 Isovue-300 (61%) IVPUSH 11/28/17 11:48 80 ml ONETIME ONE Administration Sodium Chloride 10 ml 11/28/17 11:42 11/28/17 11:55 Saline Flush FLUSH 10 ml ASDIRECTED PRN Administration Keep Vein Open Sodium Chloride 10 ml 11/28/17 11:47 11/28/17 12:08 Saline Flush FLUSH 10 ml ONETIME PRN Administration IV FLUSH - Radiology Interpretation Free Text/Narrative:: Soft tissue neck Technique: Multiple axial sections were obtained from above the external auditory canals inferiorly to the lung apices. Intravenous contrast was utilized. Findings: Parotid salivary glands appear within normal limits. Submandibular salivary glands appear within normal limits. I do not see any definite CT abnormality anterior to the left ear. Small retention cyst is noted within the inferior right maxillary sinus. This retention cyst measures approximately 1.0 cm. Small scattered lymph nodes are seen within the neck. Visualized lung apices are clear. Thyroid gland appears within normal limits. Bone window settings were reviewed which shows no discrete abnormality. Parapharyngeal soft tissues are normal. Thyroid gland shows no discrete nodule. No neck mass is seen. Impression: 1. No CT findings are seen anterior to the left ear in area described as swelling. 2. Incidental retention cyst within the right maxillary sinus. 3. No additional abnormality is seen on CT study of the neck. - Re-Assessments/Exams Free Text/Narrative Re-Assessment/Exam: 11/28/17 13:46 rapid strep returned negative. Review the labs and imaging with the patient. I feel this is likely lymphadenopathy causing her tenderness and discomfort. She likely has a viral pharyngitis causing the odynophagia. She has some preauric and some submandibular tenderness. I'll have her do Tylenol and Motrin and heat as needed. Follow-up with her primary care provider in a week to have it rechecked to make sure he does not develop into something more. Discharge instructions as documented. Departure - Departure Time of Disposition: 13:48 Disposition: Home, Self-Care 01 Condition: Good Clinical Impression: Lymphadenopathy - Discharge Information *PRESCRIPTION DRUG MONITORING PROGRAM REVIEWED*: No *COPY OF PRESCRIPTION DRUG MONITORING REPORT IN PATIENT JOVAN: No Instructions: Lymphangitis, Adult Referrals: Joan Galvan [Primary Care Provider] - Forms: ED Department Discharge Additional Instructions: [id number] Tylenol or Motrin as needed for discomfort. may also use heat or ice as needed for discomfort. follow-up with your primary care provider within a week to 2 weeks to have the areas recheck. Please return to the ER if your symptoms change or worsen.
--- NOTE | 2017-11-28 13:13 | CT ---
Soft tissue neck Technique: Multiple axial sections were obtained from above the external auditory canals inferiorly to the lung apices. Intravenous contrast was utilized. Findings: Parotid salivary glands appear within normal limits. Submandibular salivary glands appear within normal limits. I do not see any definite CT abnormality anterior to the left ear. Small retention cyst is noted within the inferior right maxillary sinus. This retention cyst measures approximately 1.0 cm. Small scattered lymph nodes are seen within the neck. Visualized lung apices are clear. Thyroid gland appears within normal limits. Bone window settings were reviewed which shows no discrete abnormality. Parapharyngeal soft tissues are normal. Thyroid gland shows no discrete nodule. No neck mass is seen. Impression: 1. No CT findings are seen anterior to the left ear in area described as swelling. 2. Incidental retention cyst within the right maxillary sinus. 3. No additional abnormality is seen on CT study of the neck. Diagnostic code #2
== END 2017-11-28 14:00 | disposition home or self-care (01) ==
LOC: JD.ED 11:12
DX: R59.1 Generalized enlarged lymph nodes (principal); E66.9 Obesity, unspecified; F17.210 Nicotine dependence, cigarettes, uncomplicated; Z88.0 Allergy status to penicillin; Z88.2 Allergy status to sulfonamides
CPT/HCPCS: 36415; 70491; 80048; 85007; 85027; 86140; 87081; 87430; 99284; J7050; Q9967

== ENCOUNTER 2018-02-02 14:06 | Emergency (ER) | payer MEDICAID ==
[2018-02-02 14:16] VITALS: BP 132/78
--- NOTE | 2018-02-02 14:41 | EDM.PDOC ---
ED HPI GENERAL MEDICAL PROBLEM - General Chief Complaint: General Stated Complaint: FEVER/CHILLS Time Seen by Provider: 02/02/18 14:29 Source of Information: Reports: Patient History Limitations: Reports: No Limitations - History of Present Illness INITIAL COMMENTS - FREE TEXT/NARRATIVE: 37-year-old female presents to the ED with acute onset of fever chills and rigors this morning. She states many of her family members i.e. kids have been sick over the last 2 weeks but she had escaped illness until the last 2 days. As evidence of sinus infection with pain in her left taisha-face with what awareness of postnasal drip. She feels mildly nauseated. She has not eaten yet today. She states she was shaking like a leaf earlier today. Her's or temperatures of been noted to be as high as 102.5. Appreciates generalized myalgia particularly her low back. Mild sore throat. Denies cough or sputum production. No pain on inspiration. Moderate headache. She does report some pain in her back in the distribution of the kidneys. No true dysuria perhaps some frequency. Onset: Gradual Onset Date: 01/31/18 (Sinus symptoms over the last few days but fever and chills started today.) Duration: Hour(s): Location: Reports: Generalized (Generalized riders with high fever 102.5.) Quality: Reports: Ache, Other Severity: Moderate (Fever and chills.) Improves with: Reports: None Worsens with: Reports: None Context: Reports: Sick Contact. Denies: Activity, Exercise, Lifting, Trauma, Other (Kids have been sick at home) Associated Symptoms: Reports: Loss of Appetite, Malaise, Weakness, Other (Left hemifacial pain particularly over the left maxillary sinus raising up from the periorbital area and her teeth are aching.). Denies: No Other Symptoms, Confusion, Chest Pain, Cough, cough w sputum, Diaphoresis, Fever/Chills, Headaches, Nausea/Vomiting, Rash, Seizure, Shortness of Breath, Syncope Treatments COLORER HIDES AND SKINS: Reports: Acetaminophen (1 g every 8 hours) Headache Pain Score (Numeric/FACES): 9 Generalized Pain Score (Numeric/FACES): 9 - Related Data Allergies Allergy/AdvReac Type Severity Reaction Status Date / Time meperidine [From Demerol] Allergy Hives Verified 02/02/18 14:16 penicillin G Allergy Anaphylactic Verified 02/02/18 14:16 Shock Sulfa (Sulfonamide Allergy Hives Verified 02/02/18 14:16 Antibiotics) Home Meds: Home Meds Levothyroxine [Synthroid] 50 mcg PO ACBREAKFAST 02/02/18 [History] buPROPion [buPROPion XL] 1 tab PO DAILY 02/02/18 [History] levoFLOXacin [Levaquin] 500 mg PO DAILY #9 tab 02/02/18 [Rx] metFORMIN [Glucophage] 500 mg PO DAILY 02/02/18 [History] Past Medical History HEENT History: Reports: Allergic Rhinitis Cardiovascular History: Reports: Other (See Below) Other Cardiovascular History: "long QT syndrome" Respiratory History: Reports: None Gastrointestinal History: Reports: Diverticulosis Other Gastrointestinal History: Left lower quadrant abdominal pain, diarrhea Genitourinary History: Reports: Other (See Below) Other Genitourinary History: Candidida vaginitis 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: Musculoskeletal History: Reports: None Neurological History: Reports: Migraines Psychiatric History: Reports: Anxiety (Currently on Wellbutrin.) Endocrine/Metabolic History: Reports: Diabetes, Type II (Currently controlled with metformin and diet.), Hypothyroidism, Obesity/BMI 30+ Hematologic History: Reports: Other (See Below) Other Hematologic History: Blood clotting disorder (Patient stated she was on blood thinners for approximately 2 months after hysterectomy) Immunologic History: Reports: None Oncologic (Cancer) History: Reports: None Dermatologic History: Reports: Cellulitis - Infectious Disease History Infectious Disease History: Reports: None - Past Surgical History Head Surgeries/Procedures: Reports: None HEENT Surgical History: Reports: Adenoidectomy, Myringotomy w Tube(s), Tonsillectomy Respiratory Surgical History: Reports: None GI Surgical History: Reports: Cholecystectomy Female Surgical History: Reports: Section, Hysterectomy, Oophorectomy, Tubal Ligation Neurological Surgical History: Reports: None Musculoskeletal Surgical History: Reports: Arthroscopic Knee Dermatological Surgical History: Reports: None Social & Family History - Family History Family Medical History: Noncontributory - Tobacco Use Smoking Status *Q: Current Some Day Smoker Years of Tobacco use: 10 Packs/Tins Daily: 0.2 Used Tobacco, but Quit: No - Caffeine Use Caffeine Use: Reports: Coffee Other Caffeine Use: lots of coffee - Recreational Drug Use Recreational Drug Use: No - Living Situation & Occupation Living situation: Reports: , with Significant Other (Fiance), with Family (4 kids) 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 Denies: Ear Pain, Vertigo Respiratory: Denies: Shortness of Breath, Wheezing, Pleuritic Chest Pain, Cough , Sputum, Hemoptysis, Other Cardiovascular: Reports: No Symptoms Endocrine: Reports: Fatigue GI/Abdominal: Reports: Nausea, Other (Some increased reflux as of late.) : Reports: Flank Pain, Frequency. Denies: Hematuria, Incontinence, Irregular Menses, Pain, Urgency, Urinary Retention Musculoskeletal: Reports: Back Pain (Generalized myalgia), Muscle Pain Skin: Reports: No Symptoms Neurological: Reports: Headache. Denies: Numbness, Paresthesia, Pre-Existing Deficit, Seizure, Syncope, Tingling, Tremors, Trouble Speaking, Difficulty Walking Psychiatric: Reports: No Symptoms Hematologic/Lymphatic: Reports: No Symptoms Immunologic: Reports: No Symptoms ED EXAM, GENERAL - Physical Exam Exam: See Below Exam Limited By: No Limitations General Appearance: Alert, WD/WN, Mild Distress, Other (She has facial flushing and she is very warm to palpation. She sounds very nasally congested.) Eye Exam: Bilateral Eye: Normal Inspection, PERRL Ears: Normal TMs Throat/Mouth: Other (Both nares are so significantly inflamed. The left is revealing a nasal polyp as well as marked deformity of the superior and medial turbinates. She is only able to breathe through her right naris.) Head: Atraumatic, Normocephalic, Facial Tenderness (Very tender over her left maxillary sinus.) Neck: Normal Inspection, Supple, Non-Tender, Full Range of Motion. No: Lymphadenopathy (L), Lymphadenopathy (R) Respiratory/Chest: No Respiratory Distress ( The tender over the right maxillary sinus as well.), Lungs Clear, Normal Breath Sounds, No Accessory Muscle Use, Chest Non-Tender. No: Respiratory Distress Cardiovascular: Normal Peripheral Pulses, Regular Rate, Rhythm, No Edema, No Gallop, No Murmur Peripheral Pulses: 2+: Posterior Tibial (L), Posterior Tibial (R), Dorsalis Pedis (L), Dorsalis Pedis (R) GI/Abdominal: Normal Bowel Sounds, Soft, Non-Tender, No Organomegaly, No Abnormal Bruit, No Mass, Pelvis Stable, Other (Abdominal girth limits ability to palpate solid organs.) Back Exam: CVA Tenderness (L), CVA Tenderness (R) (A little worse on the right as compared to the left) Extremities: Normal Inspection, Normal Range of Motion, Non-Tender, No Pedal Edema, Other (Bilateral lipedema) Neurological: Alert, Oriented, CN II-XII Intact, Normal Cognition, Normal Gait Psychiatric: Normal Affect, Normal Mood Skin Exam: Warm, Dry, Intact, Normal Color, No Rash Course - Vital Signs Last Recorded V/S: Last Vital Signs Temp 38.4 C H 02/02/18 16:38 Pulse 79 02/02/18 14:13 Resp 18 02/02/18 14:13 BP 132/78 02/02/18 14:13 Pulse Ox 99 02/02/18 14:13 - Orders/Labs/Meds Orders: Active Orders 24 hr Category Date Time Status Chest 1V Frontal [CR] Stat Exams 02/02/18 14:43 Taken CULTURE BLOOD [BC] Stat Lab 02/02/18 15:14 Received CULTURE BLOOD [BC] Stat Lab 02/02/18 15:24 Received CULTURE URINE [RM] Stat Lab 02/02/18 14:50 Received Blood Culture x2 Reflex Set [OM.PC] Stat Oth 02/02/18 14:44 Ordered Labs: Laboratory Tests 02/02/18 02/02/18 02/02/18 Range/Units 15:00 15:14 15:14 WBC 6.77 (3.98-10.04) K/mm3 RBC 5.28 H (3.98-5.22) M/mm3 Hgb 14.2 (11.2-15.7) gm/L Hct 43.4 (34.1-44.9) % MCV 82.2 (79.4-94.8) fl MCH 26.9 (25.6-32.2) pg MCHC 32.7 (32.2-35.5) g/dl RDW Std Deviation 43.8 (36.4-46.3) fL Plt Count 237 (182-369) K/mm3 MPV 12.7 H (9.4-12.3) fl Neutrophils % (Manual) 82 H (40-60) % Band Neutrophils % 0 (0-10) % Lymphocytes % (Manual) 13 L (20-40) % Atypical Lymphs % 0 % Monocytes % (Manual) 4 (2-10) % Eosinophils % (Manual) 1 (0.7-5.8) % Basophils % (Manual) 0 L (0.1-1.2) Platelet Estimate Adequate Plt Morphology Comment Normal RBC Morph Comment Normal Sodium 134 L (136-145) mEq/L Potassium 3.7 (3.5-5.1) mEq/L Chloride 99 (98-107) mEq/L Carbon Dioxide 28 (21-32) mEq/L Anion Gap 10.7 (5-15) BUN 11 (7-18) mg/dL Creatinine 0.8 (0.55-1.02) mg/dL Est Cr Clr Drug Dosing 98.07 mL/min Estimated GFR (MDRD) > 60 (>60) mL/min BUN/Creatinine Ratio 13.8 L (14-18) Glucose 101 (74-106) mg/dL Lactic Acid (0.4-2.0) mmol/L Calcium 8.9 (8.5-10.1) mg/dL Total Bilirubin 0.3 (0.2-1.0) mg/dL AST 23 (15-37) U/L ALT 30 (14-59) U/L Alkaline Phosphatase 72 (46-116) U/L C-Reactive Protein 3.1 H* (<1.0) mg/dL Total Protein 8.2 (6.4-8.2) g/dl Albumin 3.9 (3.4-5.0) g/dl Globulin 4.3 gm/dL Albumin/Globulin Ratio 0.9 L (1-2) Urine Color Yellow (Yellow) Urine Appearance Clear (Clear) Urine pH 6.0 (5.0-8.0) Ur Specific [place] > or = 1.030 (1.005-1.030) Urine Protein Negative (Negative) Urine Glucose (UA) Negative (Negative) Urine Ketones Negative (Negative) Urine Occult Blood Negative (Negative) Urine Nitrite Negative (Negative) Urine Bilirubin Negative (Negative) Urine Urobilinogen 0.2 (0.2-1.0) Ur Leukocyte Esterase Negative (Negative) Urine RBC Not seen (0-5) /hpf Urine WBC 0-5 (0-5) /hpf Ur Epithelial Cells 0-5 (0-5) /hpf Urine Bacteria Moderate H (FEW) /hpf Urine Mucus Not seen (FEW) /hpf 02/02/18 Range/Units 15:14 WBC (3.98-10.04) K/mm3 RBC (3.98-5.22) M/mm3 Hgb (11.2-15.7) gm/L Hct (34.1-44.9) % MCV (79.4-94.8) fl MCH (25.6-32.2) pg MCHC (32.2-35.5) g/dl RDW Std Deviation (36.4-46.3) fL Plt Count (182-369) K/mm3 MPV (9.4-12.3) fl Neutrophils % (Manual) (40-60) % Band Neutrophils % (0-10) % Lymphocytes % (Manual) (20-40) % Atypical Lymphs % % Monocytes % (Manual) (2-10) % Eosinophils % (Manual) (0.7-5.8) % Basophils % (Manual) (0.1-1.2) Platelet Estimate Plt Morphology Comment RBC Morph Comment Sodium (136-145) mEq/L Potassium (3.5-5.1) mEq/L Chloride (98-107) mEq/L Carbon Dioxide (21-32) mEq/L Anion Gap (5-15) BUN (7-18) mg/dL Creatinine (0.55-1.02) mg/dL Est Cr Clr Drug Dosing mL/min Estimated GFR (MDRD) (>60) mL/min BUN/Creatinine Ratio (14-18) Glucose (74-106) mg/dL Lactic Acid 1.1 (0.4-2.0) mmol/L Calcium (8.5-10.1) mg/dL Total Bilirubin (0.2-1.0) mg/dL AST (15-37) U/L ALT (14-59) U/L Alkaline Phosphatase (46-116) U/L C-Reactive Protein (<1.0) mg/dL Total Protein (6.4-8.2) g/dl Albumin (3.4-5.0) g/dl Globulin gm/dL Albumin/Globulin Ratio (1-2) Urine Color (Yellow) Urine Appearance (Clear) Urine pH (5.0-8.0) Ur Specific [place] (1.005-1.030) Urine Protein (Negative) Urine Glucose (UA) (Negative) Urine Ketones (Negative) Urine Occult Blood (Negative) Urine Nitrite (Negative) Urine Bilirubin (Negative) Urine Urobilinogen (0.2-1.0) Ur Leukocyte Esterase (Negative) Urine RBC (0-5) /hpf Urine WBC (0-5) /hpf Ur Epithelial Cells (0-5) /hpf Urine Bacteria (FEW) /hpf Urine Mucus (FEW) /hpf Meds: Medications Discontinued Medications Generic Name Dose Route Start Last Admin Trade Name Charlesq PRN Reason Stop Dose Admin Acetaminophen 975 mg 02/02/18 16:16 02/02/18 16:38 Tylenol PO 02/02/18 16:17 975 mg NOW ONE Administration Hydromorphone HCl 0.5 mg 02/02/18 16:14 02/02/18 16:37 Dilaudid IVPUSH 02/02/18 16:15 0.5 mg ONETIME ONE Administration Dextrose/Sodium Chloride 1,000 mls @ 150 mls/hr 02/02/18 14:45 02/02/18 15:06 Dextrose 5%-Normal Saline IV 150 mls/hr ASDIRECTED BRISSA Administration Levofloxacin/Dextrose 750 mg/ 150 mls @ 100 mls/hr 02/02/18 15:02 02/02/18 15 :35 Premix IV 02/02/18 16:31 100 mls/hr ONETIME ONE Administration Ketorolac Tromethamine 30 mg 02/02/18 15:00 02/02/18 15:06 Toradol IVPUSH 30 mg ONETIME BRISSA Administration Metoclopramide HCl 10 mg 02/02/18 16:14 02/02/18 16:36 Reglan IVPUSH 02/02/18 16:15 10 mg ONETIME ONE Administration - Radiology Interpretation Free Text/Narrative:: 37-year-old female presents to the ED with acute onset of febrile illness last night associated with rigors and chills this morning. She clinically does have a sinus infection particularly involving the left taisha-facial sinuses dental ache as well as periorbital pressure discomfort on the left side a well localized to the left maxillary sinus. Nasal examination reveals the left naris to be nearly completely occluded with swelling of the superior and medial turbinates and a nasal polyp. The right side shows narrowing and some signs of inflammation. No purulent debris was identified. Patient is aware postnasal drip. Lungs sound clear. Mild costovertebral angle tenderness. She does feel very warm to palpation. Plan septic workup to be completed including blood cultures 2. One view chest x-ray. - Re-Assessments/Exams Free Text/Narrative Re-Assessment/Exam: 02/02/18 15:35 chest x-ray done portably. Does have mild cardiomegaly. 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 Full traits are present in the lungs to account for acute febrile illness. 02/02/18 16:10 Labs are back. White count is 6.77 with a left shift of 82% neutrophils but no bands reported. Hemoglobin is 14.2 with hematocrit of 43.4. MCV is normal. Platelet count is 237,000. Sodium slightly low at 134. Potassium 3.7. Chloride 99 with bicarbonate 28. And a gap is 10.7. BUN is 11 with a creatinine of 0.8. GFR is greater than 60. Glucose 101. Lactic acid is 1.1. Calcium normal at 8.9. Liver function is normal. C-reactive protein is mildly elevated at 3.1. This shows moderate bacteria but no leukocyte esterase positivity or white cells seen on micro. is complaining of increasing headache at this time. She remains febrile. Will repeat Tylenol 975mg by mouth for further fever relief. Dilaudid 0.5 g IV with Reglan 10 mg IV for headache relief. I did go ahead and CT her maxillofacial sinuses as I believe this to be the source of her infection. 02/02/18 16:36 CT of the maxillofacial sinuses reveals the frontal sinuses to be clear. There is a moderate degree of ethmoid and sphenoid sinusitis worse on the right as compared to the left. There is a mucous retention cyst in the floor of the right maxillary sinus. The left maxillary sinus is clear. 02/02/18 18:08 headache is improved. Still remains mildly febrile. Feels she would like to try things at home versus coming into the hospital. He'll be discharged on Levaquin 500 mg once daily every morning for the next 9 days. Continue Motrin 600 mg every 6 hours and Tylenol 1 g 3 hours after Motrin dose if needed for fever relief. Expect marked improvement over the next 36 hours. Departure - Departure Time of Disposition: 18:09 Disposition: Home, Self-Care 01 Condition: Fair Clinical Impression: Acute bacterial sinusitis, Acute febrile illness - Discharge Information *PRESCRIPTION DRUG MONITORING PROGRAM REVIEWED*: Not Applicable *COPY OF PRESCRIPTION DRUG MONITORING REPORT IN PATIENT JOVAN: Not Applicable Prescriptions: levoFLOXacin [Levaquin] 500 mg PO DAILY #9 tab Instructions: Sinusitis, Adult, [id number], Fever, Adult, [id number] Referrals: PCP,Unknown [Primary Care Provider] - Forms: ED Department Discharge, ED Return to Work/School Form Additional Instructions: Evaluation the emergency room today in regards to development of acute febrile illness over the last 36-48 hours with associated rigors and chills today. This means bacteria floating in your bloodstream causing you to have the shakes so violently. Chest x-ray was normal. Urinary tract did not show any active signs of infection and have a benign abdominal examination. There is no doubt about having active sinus infection which is confirmed primarily to be in the ethmoid sinuses on CT of the face. At this time this appears to be her major source of infection. First dose of antibodies were provided through the ED intravenously Levaquin 750 mg. Home is to continue fever management with Motrin 600 mg every 6 hours and Tylenol 1 g 3 hours after the Motrin dose if needed for temperature greater than 100.5. Hopefully we will email have to do this for another day to day and a half in the fever should break once the antibiotics begin to work well. Reticulocyte is to be Levaquin 500 mg once daily every morning for the next 9 days starting tomorrow morning. If not markedly improved in the next 48- 72 hours you need to return to medical care. - My Orders Last 24 Hours: My Active Orders 02/02/18 14:43 Chest 1V Frontal [CR] Stat 02/02/18 14:44 Blood Culture x2 Reflex Set [OM.PC] Stat 02/02/18 14:50 CULTURE URINE [RM] Stat 02/02/18 15:14 CULTURE BLOOD [BC] Stat 02/02/18 15:24 CULTURE BLOOD [BC] Stat - Assessment/Plan Last 24 Hours: My Active Orders 02/02/18 14:43 Chest 1V Frontal [CR] Stat 02/02/18 14:44 Blood Culture x2 Reflex Set [OM.PC] Stat 02/02/18 14:50 CULTURE URINE [RM] Stat 02/02/18 15:14 CULTURE BLOOD [BC] Stat 02/02/18 15:24 CULTURE BLOOD [BC] Stat
[2018-02-02] MEDS ORDERED: Dextrose 5%-0.9% NaCl 1,000 ML IV SCH (14:45)
[2018-02-02] MEDS ORDERED: Ketorolac 30 MG/ML SDV IVPUSH SCH (15:00)
[2018-02-02] MEDS ORDERED: Levofloxacin/Dextrose 5%-Water 750 MG in Premix Bag 1 BAG IV ONE (15:02)
[2018-02-02] MEDS ORDERED: HYDROmorphone 0.5 MG/0.5 ML SYRINGE IVPUSH ONE (16:14)
[2018-02-02] MEDS ORDERED: Metoclopramide 10 MG/2 ML SDV IVPUSH ONE (16:14)
[2018-02-02] MEDS ORDERED: Acetaminophen 325 MG Tab PO ONE (16:16)
--- NOTE | 2018-02-02 16:47 | CT ---
CT paranasal sinuses Technique: Multiple axial sections were obtained. Reconstructed coronal and sagittal images were reviewed. Comparison: No previous study is available. Findings: Retention cyst is noted within the inferior right maxillary sinus. Mild areas mucosal thickening is scattered within the ethmoid sinuses. Other sinuses are clear. No air-fluid levels are seen. Mild mucosal thickening is noted within both maxillary ostia. Drea bullosa is noted within both middle nasal turbinates. Mild nasal septal deviation is seen. Impression: 1. Mild chronic-appearing sinus disease as noted above. 2. No additional abnormality is seen on CT study of the paranasal sinuses. Diagnostic code #2
--- NOTE | 2018-02-03 07:39 | CR ---
Chest: Portable view of the chest was obtained. Comparison: Prior chest x-ray of 06/17/17. Heart size at the upper limits of normal. Upper mediastinum is normal. Lung markings mildly increased believed to be accentuated from portable technique. No acute parenchymal change is suspected. Bony structures are grossly intact. Impression: 1. Nothing acute is seen on portable chest x-ray. Diagnostic code #2
== END 2018-02-02 18:30 | disposition home or self-care (01) ==
LOC: JD.ED 14:06
DX: J01.20 Acute ethmoidal sinusitis, unspecified (principal); J01.30 Acute sphenoidal sinusitis, unspecified; B96.89 Other specified bacterial agents as the cause of diseases classified elsewhere; F17.210 Nicotine dependence, cigarettes, uncomplicated; Z88.0 Allergy status to penicillin; Z88.2 Allergy status to sulfonamides; E11.9 Type 2 diabetes mellitus without complications; E66.9 Obesity, unspecified; E03.9 Hypothyroidism, unspecified
CPT/HCPCS: 36415; 70486; 71045; 80053; 81001; 83605; 85007; 85027; 86140; 87040; 87086; 96361; 96365; 96366; 96375; 99284; A9270; J1170; J1885; J1956; J2765; J7042; 87088

== ENCOUNTER 2019-01-05 09:19 | Emergency (ER) | payer BC, MEDICAID ==
[2019-01-05] MEDS ORDERED: Ondansetron 4 MG/2 ML SDV IVPUSH ONE ×2 (10:26→13:42)
[2019-01-05] MEDS ORDERED: HYDROmorphone 0.5 MG/0.5 ML Syringe IVPUSH ONE (10:26)
[2019-01-05] MEDS ORDERED: Dextrose 5%-0.9% NaCl 1,000 ML IV SCH (10:30)
--- NOTE | 2019-01-05 10:32 | EDM.PDOC ---
ED HPI GENERAL MEDICAL PROBLEM - General Chief Complaint: General Stated Complaint: SORE THROAT,ABDOMINAL PAIN AND FEVER Time Seen by Provider: 01/05/19 10:26 Source of Information: Reports: Patient History Limitations: Reports: No Limitations - History of Present Illness INITIAL COMMENTS - FREE TEXT/NARRATIVE: 38-year-old female presents to the ED with 5 day history of illness. Initial onset of illness was last , December 31 when she developed sudden onset of nausea ,vomiting and diarrhea. This dissipated over a period of about 36 hours. Yesterday she began to feel unwell awaking from sleep with a low-grade fever. Attended the clinic yesterday and no positive findings were identified. He was placed on a Z-Varinder of which she has taken the first 500 mg. She has developed loose stools again last night and again this morning without blood. Emesis today but did contain any blood. Remains nauseated at this time. Developed rigors and chills last evening and again early this morning. Her reportedly up to 103.6 with ear probe. She has diffuse lower left lower quadrant abdominal pain and suprapubic abdominal pain. She has a history of diverticulitis. He didn't stool. She is also developed a paroxysmal productive sounding cough although she's not able to expectorate any phlegm. Onset: Sudden Onset Date: 01/04/19 Onset Time: 08:00 Duration: Hour(s): (With low-grade fever yesterday morning but developed fever chills and high fever about 1800 hrs. last night.) Location: Reports: Chest (Paroxysmal productive sounding cough.), Abdomen (Pain left lower quadrant and suprapubic abdomen.), Generalized (Generalized myalgia headache nausea abdominal pain and paroxysmal cough with high fever) Quality: Reports: Ache Severity: Moderate Improves with: Reports: None (She states been taking Tylenol and Motrin alternating fashion and can barely get control of the fever.) Worsens with: Reports: None Context: Denies: Activity, Exercise, Lifting, Sick Contact, Trauma, Other Associated Symptoms: Reports: Cough, Fever/Chills, Loss of Appetite, Malaise, Nausea/Vomiting (With rigors last night), Other (Diarrhea loose stools without blood.). 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: Reports: Acetaminophen, NSAIDS (Motrin.) Back Pain Score (Numeric/FACES): 7 - Related Data Allergies Allergy/AdvReac Type Severity Reaction Status Date / Time meperidine [From Demerol] Allergy Hives Verified 03/26/18 23:15 penicillin G Allergy Anaphylactic Verified 03/26/18 23:15 Shock Sulfa (Sulfonamide Allergy Hives Verified 03/26/18 23:15 Antibiotics) Home Meds: Home Meds Levothyroxine [Synthroid] 50 mcg PO ACBREAKFAST 02/02/18 [History] buPROPion [buPROPion XL] 1 tab PO DAILY 02/02/18 [History] metFORMIN [Glucophage] 500 mg PO DAILY 02/02/18 [History] Orphenadrine [Norflex] 1 tab PO Q12H PRN #14 tab.er 03/27/18 [Rx] Dicyclomine [Bentyl] 20 mg PO Q6H PRN #5 tablet 01/05/19 [Rx] Ondansetron [Zofran] 4 mg BUCCAL Q6H PRN #5 tab 01/05/19 [Rx] levoFLOXacin [Levaquin] 500 mg PO DAILY #9 tab 01/05/19 [Rx] Past Medical History HEENT History: Reports: Allergic Rhinitis Cardiovascular History: Reports: Blood Clots/VTE/DVT, Other (See Below) (Long QT syndrome) Other Cardiovascular History: "long QT syndrome" Respiratory History: Reports: None Gastrointestinal History: Reports: Diverticulosis, Other (See Below) Other Gastrointestinal History: Left lower quadrant abdominal pain, diarrhea Genitourinary History: Reports: Other (See Below) Other Genitourinary History: Candidida vaginitis 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: Reports: Musculoskeletal History: Reports: None Neurological History: Reports: Migraines Psychiatric History: Reports: Anxiety, Depression Endocrine/Metabolic History: Reports: Diabetes, Type II, Hypothyroidism, Obesity /BMI 30+ Hematologic History: Reports: Other (See Below) Other Hematologic History: Blood clotting disorder (Patient stated she was on blood thinners for approximately 2 months after hysterectomy) Immunologic History: Reports: None Oncologic (Cancer) History: Reports: None Dermatologic History: Reports: Cellulitis - Infectious Disease History Infectious Disease History: Reports: None - Past Surgical History HEENT Surgical History: Reports: Adenoidectomy, Myringotomy w Tube(s) (bilateral , x 3), Tonsillectomy GI Surgical History: Reports: Cholecystectomy (Feb 2009) Female Surgical History: Reports: Section (x 1), Hysterectomy, Oophorectomy (left), Tubal Ligation Musculoskeletal Surgical History: Reports: Arthroscopic Knee (right, 2011) Social & Family History - Family History Family Medical History: Noncontributory - Caffeine Use Caffeine Use: Reports: Coffee Other Caffeine Use: lots of coffee - Living Situation & Occupation Living situation: Reports: , with Family (4 kids) Occupation: Unemployed ED ROS GENERAL - Review of Systems Review Of Systems: See Below Constitutional: Reports: Fever, Chills, Malaise, Weakness, Fatigue, Decreased Appetite HEENT: Reports: Throat Pain Respiratory: Reports: Cough (Not coughing up any sputum but sounds productive.) . Denies: Shortness of Breath, Wheezing Cardiovascular: Reports: Chest Pain (Some left precordial discomfort), Lightheadedness. Denies: Blood Pressure Problem, Claudication, Dyspnea on Exertion, Edema, Orthopnea, Palpitations Endocrine: Reports: Fatigue GI/Abdominal: Reports: Abdominal Pain, Diarrhea, Decreased Appetite (Left lower quadrant and suprapubic abdomen.), Nausea. Denies: Hematemesis, Hematochezia ( Loose semi-formed stool without blood.) : Reports: No Symptoms Musculoskeletal: Reports: Muscle Pain (Generalized myalgia.) Skin: Reports: No Symptoms Neurological: Reports: Dizziness, Weakness Psychiatric: Reports: No Symptoms Hematologic/Lymphatic: Reports: No Symptoms Immunologic: Reports: No Symptoms ED EXAM, GENERAL - Physical Exam Exam: See Below Exam Limited By: No Limitations General Appearance: Alert, WD/WN, Mild Distress, Other (Vital signs show temperature 38.3 and she does feel quite warm to palpation. Pulses 80 and sinus. Respiratory of 16 with paroxysmal productive sounding cough. BP is stable at 124/80 with O2 sats of 97% on room air.) Eye Exam: Bilateral Eye: Normal Inspection Ears: Normal TMs Throat/Mouth: Normal Inspection, Normal Lips, Normal Teeth, Other (No signs of throat infection.) Head: Atraumatic, Normocephalic Neck: Normal Inspection, Supple, Non-Tender, Full Range of Motion, Lymphadenopathy (L) (Some tenderness left submandibular lymph node.). No: Lymphadenopathy (R) Respiratory/Chest: No Respiratory Distress, Lungs Clear, Normal Breath Sounds. No: Respiratory Distress, Decreased Breath Sounds Cardiovascular: Normal Peripheral Pulses, Regular Rate, Rhythm, No Edema, No Gallop, No Murmur, No Rub Peripheral Pulses: 3+: Posterior Tibial (L), Posterior Tibial (R), Dorsalis Pedis (L), Dorsalis Pedis (R) GI/Abdominal: Soft, No Distention, Tender (Heaviness left lower quadrant and suprapubically.), Abnormal Bowel Sounds (Bowel sounds are fairly hyperactive in all 4 quadrants.). No: No Organomegaly, Guarding, Rigid, Rebound Back Exam: Normal Inspection, Full Range of Motion. No: CVA Tenderness (L), CVA Tenderness (R) Extremities: Normal Inspection, Normal Range of Motion, Non-Tender, No Pedal Edema Neurological: Alert, Oriented, CN II-XII Intact, Normal Cognition Psychiatric: Normal Affect, Normal Mood Skin Exam: Warm, Dry, Intact, Normal Color, No Rash Course - Vital Signs Last Recorded V/S: Last Vital Signs Temp 36.6 C 01/05/19 13:34 Pulse 80 01/05/19 10:13 Resp 16 01/05/19 10:13 BP 124/80 01/05/19 10:13 Pulse Ox 97 01/05/19 10:13 - Orders/Labs/Meds Orders: Active Orders 24 hr Category Date Time Status Enema [RC] ASDIRECTED Care 01/05/19 11:58 Inactive CULTURE BLOOD [BC] Stat Lab 01/05/19 10:55 Received CULTURE BLOOD [BC] Stat Lab 01/05/19 11:07 Received Blood Culture x2 Reflex Set [OM.PC] Stat Oth 01/05/19 10:28 Ordered Labs: Laboratory Tests 01/05/19 01/05/19 01/05/19 Range/Units 11:07 11:07 11:07 WBC 10.81 H (3.98-10.04) K/mm3 RBC 4.77 (3.98-5.22) M/mm3 Hgb 13.4 (11.2-15.7) gm/L Hct 40.1 (34.1-44.9) % MCV 84.1 (79.4-94.8) fl MCH 28.1 (25.6-32.2) pg MCHC 33.4 (32.2-35.5) g/dl RDW Std Deviation 43.8 (36.4-46.3) fL Plt Count 241 (182-369) K/mm3 MPV 12.7 H (9.4-12.3) fl Neutrophils % (Manual) 73 H (40-60) % Band Neutrophils % 1 (0-10) % Lymphocytes % (Manual) 12 L (20-40) % Atypical Lymphs % 0 % Monocytes % (Manual) 9 (2-10) % Eosinophils % (Manual) 3 (0.7-5.8) % Basophils % (Manual) 2 H (0.1-1.2) Platelet Estimate Adequate Plt Morphology Comment See note RBC Morph Comment Normal Sodium 140 (136-145) mEq/L Potassium 3.5 (3.5-5.1) mEq/L Chloride 103 (98-107) mEq/L Carbon Dioxide 24 (21-32) mEq/L Anion Gap 16.5 H (5-15) BUN 10 (7-18) mg/dL Creatinine 0.7 (0.55-1.02) mg/dL Est Cr Clr Drug Dosing 111.00 mL/min Estimated GFR (MDRD) > 60 (>60) mL/min BUN/Creatinine Ratio 14.3 (14-18) Glucose 102 (74-106) mg/dL Lactic Acid (0.4-2.0) mmol/L Calcium 8.9 (8.5-10.1) mg/dL Total Bilirubin 0.5 (0.2-1.0) mg/dL AST 19 (15-37) U/L ALT 33 (14-59) U/L Alkaline Phosphatase 61 (46-116) U/L C-Reactive Protein 2.7 H* (<1.0) mg/dL Total Protein 7.5 (6.4-8.2) g/dl Albumin 3.6 (3.4-5.0) g/dl Globulin 3.9 gm/dL Albumin/Globulin Ratio 0.9 L (1-2) Lipase (73-393) U/L HCG, Quant < 1.0 mIU/mL Urine Color (Yellow) Urine Appearance (Clear) Urine pH (5.0-8.0) Ur Specific Avery (1.005-1.030) Urine Protein (Negative) Urine Glucose (UA) (Negative) Urine Ketones (Negative) Urine Occult Blood (Negative) Urine Nitrite (Negative) Urine Bilirubin (Negative) Urine Urobilinogen (0.2-1.0) Ur Leukocyte Esterase (Negative) Urine RBC (0-5) /hpf Urine WBC (0-5) /hpf Ur Squamous Epith Cells (0-5) /hpf Urine Bacteria (FEW) /hpf Urine Mucus (FEW) /hpf 01/05/19 01/05/19 01/05/19 Range/Units 11:07 11:07 13:10 WBC (3.98-10.04) K/mm3 RBC (3.98-5.22) M/mm3 Hgb (11.2-15.7) gm/L Hct (34.1-44.9) % MCV (79.4-94.8) fl MCH (25.6-32.2) pg MCHC (32.2-35.5) g/dl RDW Std Deviation (36.4-46.3) fL Plt Count (182-369) K/mm3 MPV (9.4-12.3) fl Neutrophils % (Manual) (40-60) % Band Neutrophils % (0-10) % Lymphocytes % (Manual) (20-40) % Atypical Lymphs % % Monocytes % (Manual) (2-10) % Eosinophils % (Manual) (0.7-5.8) % Basophils % (Manual) (0.1-1.2) Platelet Estimate Plt Morphology Comment RBC Morph Comment Sodium (136-145) mEq/L Potassium (3.5-5.1) mEq/L Chloride (98-107) mEq/L Carbon Dioxide (21-32) mEq/L Anion Gap (5-15) BUN (7-18) mg/dL Creatinine (0.55-1.02) mg/dL Est Cr Clr Drug Dosing mL/min Estimated GFR (MDRD) (>60) mL/min BUN/Creatinine Ratio (14-18) Glucose (74-106) mg/dL Lactic Acid 0.8 (0.4-2.0) mmol/L Calcium (8.5-10.1) mg/dL Total Bilirubin (0.2-1.0) mg/dL AST (15-37) U/L ALT (14-59) U/L Alkaline Phosphatase (46-116) U/L C-Reactive Protein (<1.0) mg/dL Total Protein (6.4-8.2) g/dl Albumin (3.4-5.0) g/dl Globulin gm/dL Albumin/Globulin Ratio (1-2) Lipase 68 L (73-393) U/L HCG, Quant mIU/mL Urine Color Yellow (Yellow) Urine Appearance Clear (Clear) Urine pH 5.5 (5.0-8.0) Ur Specific Avery 1.020 (1.005-1.030) Urine Protein Negative (Negative) Urine Glucose (UA) Negative (Negative) Urine Ketones Negative (Negative) Urine Occult Blood Negative (Negative) Urine Nitrite Negative (Negative) Urine Bilirubin Negative (Negative) Urine Urobilinogen 0.2 (0.2-1.0) Ur Leukocyte Esterase Negative (Negative) Urine RBC Not seen (0-5) /hpf Urine WBC Not seen (0-5) /hpf Ur Squamous Epith Cells 0-5 (0-5) /hpf Urine Bacteria Rare (FEW) /hpf Urine Mucus Few (FEW) /hpf Meds: Medications Discontinued Medications Generic Name Dose Route Start Last Admin Trade Name Freq PRN Reason Stop Dose Admin Diatrizoate Meglum/Diatrizoate Sod 120 ml 01/05/19 10:45 01/05/19 12:25 Gastrografin 37% PO 01/05/19 10:46 90 ml ONETIME ONE Administration Hydromorphone HCl 0.5 mg 01/05/19 10:26 01/05/19 11:07 Dilaudid IVPUSH 01/05/19 10:27 0.5 mg ONETIME ONE Administration Dextrose/Sodium Chloride 1,000 mls @ 250 mls/hr 01/05/19 10:30 01/05/19 11:05 Dextrose 5%-Normal Saline IV 250 mls/hr ASDIRECTED BRISSA Administration Levofloxacin/Dextrose 500 mg/ 100 mls @ 100 mls/hr 01/05/19 13:19 01/05/19 13 :35 Premix IV 01/05/19 14:18 100 mls/hr ONETIME ONE Administration Ibuprofen 600 mg 01/05/19 13:23 01/05/19 13:34 Motrin PO 01/05/19 13:24 600 mg ONETIME ONE Administration Iopamidol 100 ml 01/05/19 10:45 01/05/19 12:25 Isovue-300 (61%) IVPUSH 01/05/19 10:46 100 ml ONETIME ONE Administration Ondansetron HCl 4 mg 01/05/19 10:26 01/05/19 11:05 Zofran IVPUSH 01/05/19 10:27 4 mg ONETIME ONE Administration Ondansetron HCl 4 mg 01/05/19 13:42 01/05/19 13:43 Zofran IVPUSH 01/05/19 13:43 4 mg ONETIME ONE Administration Ondansetron HCl Confirm 01/05/19 13:40 01/05/19 13:43 Zofran Administered 01/05/19 13:41 Not Given Dose 4 mg .ROUTE .STK-MED ONE Sodium Chloride 10 ml 01/05/19 10:45 01/05/19 12:25 Saline Flush FLUSH 10 ml ONETIME PRN Administration IV FLUSH - Radiology Interpretation Free Text/Narrative:: 38-year-old female presents to the ED with a 5 day history of illness that started with flulike symptoms I nausea vomiting and diarrhea that lasted for about 36 hours. Since that time she's had mildly loose stools 2 or 3 times daily. She awoke with a fever yesterday morning and then developed jermaine chills riders last evening with a temperature of 103.6. She's been alternating Tylenol and Motrin to bring the fever under control. Is nauseated cannot eat today. Feels weak and lightheaded. Has developed a paroxysmal cough without ability to bring up any sputum. She has diffuse left lower quadrant and suprapubic abdominal pain and has had diarrhea without blood this morning. Examination reveals definitely febrile. Lungs are clear to auscultation percussion. Tenderness left lower quadrant over the sigmoid colon. She has a history of diverticulitis. Septic workup to be commenced. IV will be D5 normal saline at 250 mils per hour. She took medication i.e. Motrin at about 0830 hrs. this morning for fever relief. Will give her Reglan 10 mg IV and Dilaudid 0.5 mg IV for nausea and pain relief. He to have a chest x-ray done portably. Routine labs including blood cultures and lactic acid. Plan will be to proceed with CT of the abdomen with oral and IV contrast. - Re-Assessments/Exams Free Text/Narrative Re-Assessment/Exam: 01/05/19 11:42 chest x-ray done portably reveals diffuse vascular congestion pattern which I felt was likely due to portable technique. Cardiac silhouette upper limits of normal. Right hemidiaphragm perhaps mildly elevated. 01/05/19 12:01 White blood cell count is minimally elevated at 10.81. 73% neutrophils and 1% band cells reported. Hemoglobin is 13.4 with hematocrit of 40.1. Platelet count is normal 241,000. Lactic acid is 0.8. Beta hCG was less than 1.0. 01/05/19 12:42 Serum sodium is 140 with potassium 3.5. Chloride 103 with a bicarbonate 24. Anion gap mildly elevated at 16.5. BUN is 10 with a creatinine of 0.7. GFR remains greater than 60. Glucose is 102 with a lactic acid of 0.8. Calcium is 8.9 with a normal liver function studies. C-reactive protein mildly elevated at 2.7. Total protein is 7.5 within albumin fraction of 3.6. Lipase is normal at 68. 01/05/19 12:50 CT of the abdomen and pelvis has been performed with oral and IV contrast. Slice portions of the lungs are clear. Cardiac silhouette is normal. There is a moderate hiatal hernia that does contain some contrast. Liver appears homogeneous with no intraductal dilatation. Gallbladder is surgically absent. Increase is normal. Adrenal glands are normal kidneys and ureters appear to be normal as well. The bowel contains a large amount of stool starting in the right hemicolon and across the transverse colon with multiple diverticuli appreciated. Descending colon contains diverticula but no obvious evidence of diverticulitis. Bladder appears to fill adequately. No free fluid in the pelvis. Therefore the source of her fever chills and suspect bacteremia are not evident. 01/05/19 13:22 radiologist is over read the CT of the abdomen and pelvis as well and agrees with me in terms that there is nothing that he can see that would cause bacteremia. Multiple diverticuli with no evidence of diverticulitis. Clinically she is very nasally congested and wondering if she's not getting bacteremia from severe sinus infection. CT maxillofacial sinuses will be done. Going to give her dose of Levaquin 500 milligrams IV. He needs repeat Motrin 600 mg by mouth for fever relief. Urinalysis has returned and is negative for any infection. 01/05/19 14:03 CT of the maxillary sinuses reveals stiff diffuse inflammation of all of the turbinates. There is active sinusitis in both the ethmoids and sphenoid sinuses bilaterally. Frontal sinuses are clear. The right maxillary sinuses. Appears to contain a large polyp and is about 75% occluded. The left maxillary sinus is normal. Patient is to receive Levaquin 500 milligrams IV. Tentatively I will be able to discharge her to home. 01/05/19 15:55 is completed with IV fluids and IV Levaquin 500 mg and is feeling somewhat better. Remains mildly febrile. Discharged home on Zofran 4 mg sublingual every 4 hours. For nausea relief. Bentyl 20 mg every 6 hours necessary for relief of bowel cramping pain or diarrhea. Antibiotic will be Levaquin 500 milligrams once daily for another 9 days. Advised about possible interaction with metformin to cause hypoglycemia. He is to contact her doctor or return to the ED if low blood sugars occur. Will be given to excuse her from the work place for the next 3 days. Departure - Departure Time of Disposition: 15:51 Disposition: Home, Self-Care 01 Condition: Fair Clinical Impression: Sinusitis chronic, ethmoidal Fever Qualifiers: Encounter type: initial encounter Abdominal pain Qualifiers: Abdominal location: left lower quadrant Qualified Code(s): R10.32 - Left lower quadrant pain - Discharge Information *PRESCRIPTION DRUG MONITORING PROGRAM REVIEWED*: Not Applicable *COPY OF PRESCRIPTION DRUG MONITORING REPORT IN PATIENT JOVAN: Not Applicable Prescriptions: Dicyclomine [Bentyl] 20 mg PO Q6H PRN #5 tablet PRN Reason: Abdominal cramps/diarrhea levoFLOXacin [Levaquin] 500 mg PO DAILY #9 tab Ondansetron [Zofran] 4 mg BUCCAL Q6H PRN #5 tab PRN Reason: nausea or vomiting Instructions: Fever, Adult, Sinusitis, Adult, [id number] Referrals: Samia Carson PA-C [Primary Care Provider] - Forms: ED Department Discharge, ED Return to Work/School Form Additional Instructions: Evaluation the emergency room today in regards to development of high fever with associated chills and rigors. The source of this infection was hard to pin down. Started on a Z-Varinder yesterday for suspect bronchitis. Due to development of left lower quadrant abdominal pain and recent diarrhea and vomiting CT scan abdomen was performed to rule out recurrence of diverticulitis. He do have multiple diverticula involving the transverse colon in the descending colon and sigmoid colon but there was no active signs of an infection or diverticulitis. You are very nasally congested and CT of the sinuses did reveal significant sinus infection in the right maxillary sinus and in the ethmoids and sphenoid sinuses bilaterally. The frontal sinuses were clear. Left maxillary sinus has trace inflammation .It appears this most likely is the source of your current bacteremia or fever and chills due to bacteria entering your blood stream. You' re given Levaquin 500 mg intravenously while in the ED as well as resuscitated with IV fluids and medications for nausea and pain relief. Admitted home is Zofran under the tongue every 4 hours as needed to relieve nausea. Bentyl 20 mg tablet every 6 hours needed to relieve abdominal cramping pain and/or diarrhea. Antibiotic is to be Levaquin 500 mg once daily for the next 9 days starting about noon hour tomorrow. Given to excuse her from work place today and for the next 3 days until fever and appetite returned. Suggest follow-up to be done if you are still running a fever in 48 hours time. - My Orders Last 24 Hours: My Active Orders 01/05/19 10:28 Blood Culture x2 Reflex Set [OM.PC] Stat 01/05/19 10:55 CULTURE BLOOD [BC] Stat 01/05/19 11:07 CULTURE BLOOD [BC] Stat 01/05/19 11:58 Enema [RC] ASDIRECTED - Assessment/Plan Last 24 Hours: My Active Orders 01/05/19 10:28 Blood Culture x2 Reflex Set [OM.PC] Stat 01/05/19 10:55 CULTURE BLOOD [BC] Stat 01/05/19 11:07 CULTURE BLOOD [BC] Stat 01/05/19 11:58 Enema [RC] ASDIRECTED
[2019-01-05 10:36] VITALS: BP 124/80
[2019-01-05] MEDS ORDERED: Diatrizoate Meglumine/Diatrizoate Sodium 37% 120 ML Bottle PO ONE (10:45)
[2019-01-05] MEDS ORDERED: Iopamidol 612 MG/ML 100 ML Bottle IVPUSH ONE (10:45)
[2019-01-05] MEDS: Sodium Chloride 0.9% 10 ML Syringe FLUSH PRN ×2 (11:05→12:25)
--- NOTE | 2019-01-05 12:33 | CR ---
Chest: Portable view of the chest was obtained. Comparison: Prior chest x-ray of 03/26/18. Heart size and mediastinum are within normal limits for portable technique. Lungs are clear with no acute parenchymal change. Bony structures are grossly intact. Impression: 1. Nothing acute is appreciated on portable chest x-ray. Diagnostic code #1
--- NOTE | 2019-01-05 13:09 | CT ---
CT abdomen and pelvis Technique: Multiple axial sections were obtained from above the dome of the diaphragm inferiorly through the pubic symphysis. Intravenous and oral contrast was utilized. Delayed images were obtained through the bladder. Comparison: Prior CT abdomen and pelvis exam of 11/21/16. Findings: Visualized lung bases show nothing acute. Liver shows no focal parenchymal abnormality. Surgical clips are seen from prior cholecystectomy. Spleen appears within normal limits. Contrast noted within the distal esophagus compatible with gastroesophageal reflux. Adrenal glands show no nodule. Pancreas is within normal limits. Kidneys show symmetric contrast enhancement without hydronephrosis or mass. Aorta shows no aneurysm. No retroperitoneal adenopathy or mesenteric abnormalities are seen. Small fat-containing hernia is noted slightly superior to the umbilicus on the right side. Hernia opening measures about 9 mm. Small fat-containing umbilical hernia is also noted. No pelvic mass or adenopathy is seen. Sigmoid and descending colon diverticuli are seen without inflammatory change of diverticulitis. Appendix is seen which is normal in size. No free fluid or other inflammatory change is seen. Delayed images show contrast within the distal ureters and within the bladder. Bone window settings were reviewed which appear within normal limits for the patient's age. Impression: 1. Small fat-containing abdominal wall hernia to the right of midline slightly above the umbilicus. Small fat-containing umbilical hernia is also noted. 2. Diverticulosis without evidence of diverticulitis. 3. Gastroesophageal reflux of contrast. 4. Other findings believed to be incidental. Nothing acute is identified. Diagnostic code #2
[2019-01-05] MEDS ORDERED: Levofloxacin/Dextrose 5%-Water 500 MG in Premix Bag 1 BAG IV ONE (13:19)
[2019-01-05] MEDS ORDERED: Ibuprofen 600 MG Tab PO ONE (13:23)
[2019-01-05] MEDS ORDERED: Ondansetron 4 MG/2 ML SDV ONE (13:40)
--- NOTE | 2019-01-05 14:21 | CT ---
CT paranasal sinuses Technique: Multiple axial sections through the paranasal sinuses were obtained. Reconstructed coronal and sagittal images were reviewed. Findings: Retention cyst is noted within the inferior right maxillary sinus measuring 1.3 cm. Minimal mucosal thickening is seen within the left maxillary sinus. Mild mucosal thickening is also scattered throughout the ethmoid sinuses. No air-fluid levels are seen. Mild nasal septal deviation is seen. Galina bullosa are noted within both middle nasal turbinates. Visualized mastoid sinuses are clear. Impression: 1. Sinus findings as noted above which most likely represent chronic sinusitis. 2. Mild nasal septal deviation with galina bullosa seen within both middle nasal turbinates. Diagnostic code #3
== END 2019-01-05 16:10 | disposition home or self-care (01) ==
LOC: JD.ED 09:19
DX: J32.2 Chronic ethmoidal sinusitis (principal); R10.32 Left lower quadrant pain; E11.9 Type 2 diabetes mellitus without complications; E03.9 Hypothyroidism, unspecified; E66.9 Obesity, unspecified; Z88.2 Allergy status to sulfonamides; Z88.8 Allergy status to other drugs, medicaments and biological substances; Z79.899 Other long term (current) drug therapy; Z98.890 Other specified postprocedural states; Z88.0 Allergy status to penicillin; Z90.49 Acquired absence of other specified parts of digestive tract; Z90.710 Acquired absence of both cervix and uterus; Z90.722 Acquired absence of ovaries, bilateral; Z79.84 Long term (current) use of oral hypoglycemic drugs; Z68.41 Body mass index [BMI] 40.0-44.9, adult
CPT/HCPCS: 36415; 70486; 71045; 74177; 80053; 81001; 83605; 83690; 84702; 85007; 85027; 86140; 87040; 96361; 96365; 96366; 96375; 96376; 99284; A9270; J1170; J1956; J2405; J7042; Q9963; Q9967

== ENCOUNTER 2019-10-19 09:30 | Emergency (ER) | payer BC, MEDICAID ==
[2019-10-19 09:47] VITALS: BP 149/76; PULSE 72
[2019-10-19] MEDS ORDERED: Ondansetron 4 MG/2 ML SDV IVPUSH ONE (09:58)
[2019-10-19] MEDS ORDERED: Sodium Chloride 0.9% 1,000 ML IV STA (09:58)
[2019-10-19] MEDS ORDERED: Sodium Chloride 0.9% 10 ML Syringe FLUSH PRN (09:58)
[2019-10-19] MEDS ORDERED: HYDROmorphone 1 MG/ML Syringe IVPUSH ONE ×2 (09:59→11:01)
--- NOTE | 2019-10-19 10:18 | EDM.PDOC ---
ED HPI GENERAL MEDICAL PROBLEM - General Chief Complaint: Abdominal Pain Stated Complaint: ABDOMINAL PAIN Time Seen by Provider: 10/19/19 09:46 Source of Information: Reports: Patient History Limitations: Reports: No Limitations - History of Present Illness INITIAL COMMENTS - FREE TEXT/NARRATIVE: The patient presents with abdominal pain and nausea. This started about 12 hours ago. She does have a history of diverticulitis. She has no fever, chills , cough, congestion, runny nose, chest pain or shortness of breath. She has no gallbladder but she does still have an appendix. She has no dysuria but she does have some diarrhea. A few weeks ago she did notice a lump in her mid, right abdomen. Onset: Gradual Duration: Hour(s): (12) Location: Reports: Abdomen Quality: Reports: Sharp Severity: Moderate Improves with: Reports: None Worsens with: Reports: None Associated Symptoms: Reports: Nausea/Vomiting. Denies: Chest Pain, Cough, Fever /Chills, Headaches, Shortness of Breath Abdomen Pain Score (Numeric/FACES): 9 - Related Data Allergies Allergy/AdvReac Type Severity Reaction Status Date / Time meperidine [From Demerol] Allergy Severe Hives Verified 10/19/19 09:47 penicillin G Allergy Severe Anaphylactic Verified 10/19/19 09:47 Shock Sulfa (Sulfonamide Allergy Severe Hives Verified 10/19/19 09:47 Antibiotics) Home Meds: Home Meds Levothyroxine [Synthroid] 50 mcg PO ACBREAKFAST 02/02/18 [History] Ciprofloxacin [Ciprofloxacin HCl] 500 mg PO BID #14 tab 10/19/19 [Rx] Hydrocodone/Acetaminophen [Hydrocodone-Acetamin 5-325 mg] 1 - 2 each PO Q6HR PRN #20 tablet 10/19/19 [Rx] Ondansetron [Zofran ODT] 4 mg PO Q6H PRN #20 tab.dis 10/19/19 [Rx] metroNIDAZOLE [Flagyl] 500 mg PO Q8H #21 tab 10/19/19 [Rx] Past Medical History HEENT History: Reports: Allergic Rhinitis Cardiovascular History: Reports: Blood Clots/VTE/DVT, Other (See Below) Other Cardiovascular History: "long QT syndrome" Respiratory History: Reports: None Gastrointestinal History: Reports: Diverticulosis, Other (See Below) Other Gastrointestinal History: Left lower quadrant abdominal pain, diarrhea Genitourinary History: Reports: Other (See Below) Other Genitourinary History: Candidida vaginitis 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: Musculoskeletal History: Reports: None Neurological History: Reports: Migraines Psychiatric History: Reports: Anxiety, Depression Endocrine/Metabolic History: Reports: Hypothyroidism, Obesity/BMI 30+ Hematologic History: Reports: Other (See Below) Other Hematologic History: Blood clotting disorder (Patient stated she was on blood thinners for approximately 2 months after hysterectomy) Immunologic History: Reports: None Oncologic (Cancer) History: Reports: None Dermatologic History: Reports: Cellulitis - Infectious Disease History Infectious Disease History: Reports: None - Past Surgical History Head Surgeries/Procedures: Reports: None HEENT Surgical History: Reports: Adenoidectomy, Myringotomy w Tube(s), Tonsillectomy GI Surgical History: Reports: Cholecystectomy Female Surgical History: Reports: Section, Hysterectomy, Oophorectomy, Tubal Ligation Musculoskeletal Surgical History: Reports: Arthroscopic Knee Social & Family History - Family History Family Medical History: Noncontributory - Tobacco Use Smoking Status *Q: Former Smoker Used Tobacco, but Quit: Yes Month/Year Tobacco Last Used: 13 months ago - Caffeine Use Caffeine Use: Reports: Coffee Other Caffeine Use: lots of coffee - Recreational Drug Use Recreational Drug Use: No - Living Situation & Occupation Living situation: Reports: , with Family (4 kids) Occupation: Unemployed ED ROS GENERAL - Review of Systems Review Of Systems: See Below Constitutional: Reports: No Symptoms HEENT: Reports: No Symptoms Respiratory: Reports: No Symptoms Cardiovascular: Reports: No Symptoms Endocrine: Reports: No Symptoms GI/Abdominal: Reports: Abdominal Pain, Diarrhea, Nausea. Denies: Vomiting : Reports: No Symptoms Musculoskeletal: Reports: No Symptoms Skin: Reports: No Symptoms Neurological: Reports: No Symptoms ED EXAM, GI/ABD - Physical Exam Exam: See Below Exam Limited By: No Limitations General Appearance: Alert, No Apparent Distress Ears: Normal External Exam Nose: Normal Inspection Head: Atraumatic, Normocephalic Neck: Normal Inspection, Supple, Non-Tender Respiratory/Chest: No Respiratory Distress, Lungs Clear, Normal Breath Sounds Cardiovascular: Regular Rate, Rhythm, No Edema, No Murmur GI/Abdominal Exam: Soft, No Organomegaly, No Mass, Tender (Moderate tenderness to the mid abdomen with a mass felt to the right mid abdomen toward the midline. ) Course - Vital Signs Last Recorded V/S: Last Vital Signs Temp 98.8 F 10/19/19 09:43 Pulse 72 10/19/19 09:43 Resp 12 10/19/19 09:43 BP 149/76 H 10/19/19 09:43 Pulse Ox 96 10/19/19 09:43 - Orders/Labs/Meds Orders: Active Orders 24 hr Category Date Time Status Peripheral IV Care [RC] . DIRECTED Care 10/19/19 09:58 Active Sodium Chloride 0.9% [Saline Flush] Med 10/19/19 09:58 Active 10 ml FLUSH ASDIRECTED PRN ED Antiemetic Medication Reflex [OM.PC] Stat Oth 10/19/19 09:58 Ordered Peripheral IV Insertion Adult [OM.PC] Stat Ot 10/19/19 09:58 Ordered Medication Orders Sodium Chloride (Saline Flush) 10 ml FLUSH ASDIRECTED PRN PRN Reason: Keep Vein Open Last Admin: 10/19/19 10:05 Dose: 10 ml Labs: Laboratory Tests 10/19/19 10/19/19 10/19/19 Range/Units 10:33 10:35 10:35 WBC 10.65 H (3.98-10.04) K/mm3 RBC 4.83 (3.98-5.22) M/mm3 Hgb 13.3 (11.2-15.7) gm/dl Hct 40.7 (34.1-44.9) % MCV 84.3 (79.4-94.8) fl MCH 27.5 (25.6-32.2) pg MCHC 32.7 (32.2-35.5) g/dl RDW Std Deviation 42.5 (36.4-46.3) fL Plt Count 299 (182-369) K/mm3 MPV 12.3 (9.4-12.3) fl Neut % (Auto) 55.7 (34.0-71.1) % Lymph % (Auto) 27.2 (19.3-51.7) % [place] % (Auto) 8.5 (4.7-12.5) % Eos % (Auto) 7.6 H (0.7-5.8) Baso % (Auto) 0.6 (0.1-1.2) % Neut # (Auto) 5.94 (1.56-6.13) K/mm3 Lymph # (Auto) 2.90 (1.18-3.74) K/mm3 [place] # (Auto) 0.90 H (0.24-0.36) K/mm3 Eos # (Auto) 0.81 H (0.04-0.36) K/mm3 Baso # (Auto) 0.06 (0.01-0.08) K/mm3 Sodium 142 (136-145) mEq/L Potassium 3.8 (3.5-5.1) mEq/L Chloride 105 (98-107) mEq/L Carbon Dioxide 28 (21-32) mEq/L Anion Gap 12.8 (5-15) BUN 14 (7-18) mg/dL Creatinine 0.6 (0.55-1.02) mg/dL Est Cr Clr Drug Dosing 128.24 mL/min Estimated GFR (MDRD) > 60 (>60) mL/min BUN/Creatinine Ratio 23.3 H (14-18) Glucose 94 (74-106) mg/dL Calcium 8.8 (8.5-10.1) mg/dL Total Bilirubin 0.5 (0.2-1.0) mg/dL AST 13 L (15-37) U/L ALT 26 (14-59) U/L Alkaline Phosphatase 60 (46-116) U/L Total Protein 7.7 (6.4-8.2) g/dl Albumin 3.5 (3.4-5.0) g/dl Globulin 4.2 gm/dL Albumin/Globulin Ratio 0.8 L (1-2) Lipase 78 (73-393) U/L HCG, Qual (NEGATIVE) Urine Color Yellow (Yellow) Urine Appearance Clear (Clear) Urine pH 5.5 (5.0-8.0) Ur Specific [place] > or = 1.030 (1.005-1.030) Urine Protein Negative (Negative) Urine Glucose (UA) Negative (Negative) Urine Ketones Negative (Negative) Urine Occult Blood Negative (Negative) Urine Nitrite Negative (Negative) Urine Bilirubin Negative (Negative) Urine Urobilinogen 0.2 (0.2-1.0) Ur Leukocyte Esterase Negative (Negative) Urine RBC 0-5 (0-5) /hpf Urine WBC 0-5 (0-5) /hpf Ur Squamous Epith Cells 0-5 (0-5) /hpf Urine Bacteria Few (FEW) /hpf Urine Mucus Few (FEW) /hpf 10/19/19 Range/Units 10:35 WBC (3.98-10.04) K/mm3 RBC (3.98-5.22) M/mm3 Hgb (11.2-15.7) gm/dl Hct (34.1-44.9) % MCV (79.4-94.8) fl MCH (25.6-32.2) pg MCHC (32.2-35.5) g/dl RDW Std Deviation (36.4-46.3) fL Plt Count (182-369) K/mm3 MPV (9.4-12.3) fl Neut % (Auto) (34.0-71.1) % Lymph % (Auto) (19.3-51.7) % [place] % (Auto) (4.7-12.5) % Eos % (Auto) (0.7-5.8) Baso % (Auto) (0.1-1.2) % Neut # (Auto) (1.56-6.13) K/mm3 Lymph # (Auto) (1.18-3.74) K/mm3 [place] # (Auto) (0.24-0.36) K/mm3 Eos # (Auto) (0.04-0.36) K/mm3 Baso # (Auto) (0.01-0.08) K/mm3 Sodium (136-145) mEq/L Potassium (3.5-5.1) mEq/L Chloride (98-107) mEq/L Carbon Dioxide (21-32) mEq/L Anion Gap (5-15) BUN (7-18) mg/dL Creatinine (0.55-1.02) mg/dL Est Cr Clr Drug Dosing mL/min Estimated GFR (MDRD) (>60) mL/min BUN/Creatinine Ratio (14-18) Glucose (74-106) mg/dL Calcium (8.5-10.1) mg/dL Total Bilirubin (0.2-1.0) mg/dL AST (15-37) U/L ALT (14-59) U/L Alkaline Phosphatase (46-116) U/L Total Protein (6.4-8.2) g/dl Albumin (3.4-5.0) g/dl Globulin gm/dL Albumin/Globulin Ratio (1-2) Lipase (73-393) U/L HCG, Qual Negative (NEGATIVE) Urine Color (Yellow) Urine Appearance (Clear) Urine pH (5.0-8.0) Ur Specific [place] (1.005-1.030) Urine Protein (Negative) Urine Glucose (UA) (Negative) Urine Ketones (Negative) Urine Occult Blood (Negative) Urine Nitrite (Negative) Urine Bilirubin (Negative) Urine Urobilinogen (0.2-1.0) Ur Leukocyte Esterase (Negative) Urine RBC (0-5) /hpf Urine WBC (0-5) /hpf Ur Squamous Epith Cells (0-5) /hpf Urine Bacteria (FEW) /hpf Urine Mucus (FEW) /hpf Meds: Medications Generic Name Dose Route Start Last Admin Trade Name Freq PRN Reason Stop Dose Admin Sodium Chloride 10 ml 10/19/19 09:58 10/19/19 10:05 Saline Flush FLUSH 10 ml ASDIRECTED PRN Administration Keep Vein Open Discontinued Medications Generic Name Dose Route Start Last Admin Trade Name Freq PRN Reason Stop Dose Admin Diatrizoate Meglum/Diatrizoate Sod 90 ml 10/19/19 10:20 10/19/19 10:51 Gastrografin 37% PO 10/19/19 10:21 45 ml ONETIME ONE Administration Hydromorphone HCl 1 mg 10/19/19 09:59 10/19/19 10:21 Dilaudid IVPUSH 10/19/19 10:00 1 mg ONETIME ONE Administration Hydromorphone HCl 1 mg 10/19/19 11:01 10/19/19 11:05 Dilaudid IVPUSH 10/19/19 11:02 1 mg ONETIME ONE Administration Sodium Chloride 1,000 mls @ 1,000 mls/hr 10/19/19 09:58 10/19/19 10:20 Normal Saline IV 10/19/19 10:57 1,000 mls/hr .BOLUS STA Administration Iopamidol 50 ml 10/19/19 10:20 10/19/19 10:51 Isovue-300 (61%) IVPUSH 10/19/19 10:21 25 ml ONETIME ONE Administration Iopamidol 100 ml 10/19/19 10:20 10/19/19 10:51 Isovue-300 (61%) IVPUSH 10/19/19 10:21 100 ml ONETIME ONE Administration Ondansetron HCl 4 mg 10/19/19 09:58 10/19/19 10:21 Zofran IVPUSH 10/19/19 09:59 4 mg ONETIME ONE Administration - Re-Assessments/Exams Free Text/Narrative Re-Assessment/Exam: 10/19/19 10:17 I ordered an IV NS 1L bolus, zofran 4mg IV, dilaudid 1mg IV, labs, UA and a CT of her abdomen and pelvis. 10/19/19 11:30 Her WBC is elevated slightly at 10.65. Her CMP is negative. Her lipase is normal at 78. Her HCG is negative and UA shows no UT. Her CT shows mild inflammatory change around a diverticulum within the sigmoid colon. This could be due to chronic or acute but mild diverticulitis. Fat-containing anterior abdominal wall hernia to the right of midline located slightly above the level of the umbilicus. Mild gastroesophageal reflux. No other acute finding is seen. I will get her on some cipro, flagyl, hydrocodone and zofran. Departure - Departure Time of Disposition: 11:35 Disposition: Home, Self-Care 01 Condition: Good Clinical Impression: Acute diverticulitis, Hernia of anterior abdominal wall - Discharge Information *PRESCRIPTION DRUG MONITORING PROGRAM REVIEWED*: Not Applicable *COPY OF PRESCRIPTION DRUG MONITORING REPORT IN PATIENT JOVAN: Not Applicable Prescriptions: Hydrocodone/Acetaminophen [Hydrocodone-Acetamin 5-325 mg] 1 - 2 each PO Q6HR PRN #20 tablet PRN Reason: Pain Ciprofloxacin [Ciprofloxacin HCl] 500 mg PO BID #14 tab metroNIDAZOLE [Flagyl] 500 mg PO Q8H #21 tab Ondansetron [Zofran ODT] 4 mg PO Q6H PRN #20 tab.dis PRN Reason: Nausea\\vomiting Referrals: Irineo Dyson MD [Physician] - 1 Week Samia Carson PA-C [Primary Care Provider] - 1 Week Forms: ED Department Discharge Additional Instructions: Take the cipro and flagyl as prescribed. Drink plenty of fluids. Take the zofran as needed for nausea and vomiting. Take they hydrocodone as needed for the pain. Please return if you are worse. Follow up with Samia Carson and Dr Dyson our general surgeon. Sepsis Event Note (ED) - Evaluation Sepsis Screening Result: No Definite Risk - Focused Exam Vital Signs: Vital Signs Temp Pulse Resp BP Pulse Ox 10/19/19 09:43 98.8 F 72 12 149/76 H 96 - My Orders Last 24 Hours: My Active Orders 10/19/19 09:58 Peripheral IV Care [RC] . DIRECTED Sodium Chloride 0.9% [Saline Flush] 10 ml FLUSH ASDIRECTED PRN ED Antiemetic Medication Reflex [OM.PC] Stat Peripheral IV Insertion Adult [OM.PC] Stat - Assessment/Plan Last 24 Hours: My Active Orders 10/19/19 09:58 Peripheral IV Care [RC] . DIRECTED Sodium Chloride 0.9% [Saline Flush] 10 ml FLUSH ASDIRECTED PRN ED Antiemetic Medication Reflex [OM.PC] Stat Peripheral IV Insertion Adult [OM.PC] Stat
[2019-10-19] MEDS ORDERED: Diatrizoate Meglumine/Diatrizoate Sodium 37% 120 ML Bottle PO ONE (10:20)
[2019-10-19] MEDS ORDERED: Iopamidol 612 MG/ML 100 ML Bottle IVPUSH ONE (10:20)
[2019-10-19] MEDS ORDERED: Iopamidol 612 MG/ML 50 ML SDV IVPUSH ONE (10:20)
--- NOTE | 2019-10-19 11:22 | CT ---
CT abdomen and pelvis Technique: Multiple axial sections were obtained from above the dome of the diaphragm inferiorly through the pubic symphysis. Intravenous contrast and oral contrast was given. Comparison: Prior CT abdomen and pelvis exam of 01/05/19. Findings: Visualized lung bases show nothing acute. Liver contains no focal parenchymal abnormality. Surgical clips are seen from previous cholecystectomy. Slight amount of gastroesophageal reflux is seen. Spleen appears within normal limits. Adrenal glands show no nodule. Pancreas shows no discrete abnormality. Kidneys show symmetric contrast enhancement without hydronephrosis or mass. Mild inflammatory change is seen around a diverticulum within the sigmoid colon. No additional pelvic abnormality is seen. Fat-containing anterior abdominal wall hernia is seen located slightly above the umbilicus and to the right of midline. Small fat-containing umbilical hernia is noted. No additional abdominal wall hernia is seen. Aorta shows no aneurysm. No retroperitoneal adenopathy is seen. Cyst is noted within the right side of the pelvis which is most likely ovarian in etiology and measures 2.9 cm. No additional pelvic abnormality is seen. Bone window settings show nothing acute. Impression: 1. Mild inflammatory change around a diverticulum within the sigmoid colon. This could be due to chronic or acute but mild diverticulitis. 2. Fat-containing anterior abdominal wall hernia to the right of midline located slightly above the level of the umbilicus. 3. Mild gastroesophageal reflux. 4. No other acute finding is seen. Diagnostic code #3 This report was dictated in MDT
== END 2019-10-19 11:52 | disposition home or self-care (01) ==
LOC: JD.ED 09:30
DX: K57.92 Diverticulitis of intestine, part unspecified, without perforation or abscess without bleeding (principal); K43.9 Ventral hernia without obstruction or gangrene; E03.9 Hypothyroidism, unspecified; R11.2 Nausea with vomiting, unspecified; E66.9 Obesity, unspecified; Z68.41 Body mass index [BMI] 40.0-44.9, adult; Z87.891 Personal history of nicotine dependence; Z88.0 Allergy status to penicillin; Z88.2 Allergy status to sulfonamides; Z88.8 Allergy status to other drugs, medicaments and biological substances; Z79.899 Other long term (current) drug therapy
CPT/HCPCS: 36415; 74177; 80053; 81001; 83690; 84703; 85025; 96361; 96374; 96375; 96376; 99284; J1170; J2405; J7030; Q9963; Q9967

== ENCOUNTER 2020-02-27 19:48 | Emergency (ER) | payer MEDICAID ==
[2020-02-27] MEDS ORDERED: FLU VACC QS2020-21(6MOS UP)/PF 60 MCG/0.5 ML SYRINGE IM ONE (20:30)
[2020-02-27] MEDS ORDERED: Ondansetron 4 MG/2 ML SDV IVPUSH ONE (20:31)
--- NOTE | 2020-02-27 20:35 | EDM.PDOC ---
ED HPI GENERAL MEDICAL PROBLEM - General Chief Complaint: Respiratory Problem Stated Complaint: sob cough Time Seen by Provider: 02/27/20 20:02 Source of Information: Reports: Patient History Limitations: Reports: No Limitations - History of Present Illness INITIAL COMMENTS - FREE TEXT/NARRATIVE: Ms. Maldonado is a pleasant 39-year-old woman who now presents to the ED with a variety of symptoms. She states that she has had a near-continuous headache for the past 3 to 4 weeks and that she has chronic sinus problems and has had left ear pain recently. She reports 2 days of nausea, a sore throat, and watery, non-bloody diarrhea. No recent vomiting. She reports having had 2 episodes of momentary, rapid, irregular palpitations over the past 48 hours. No associated chest pain. She has had a nonproductive cough for 24 hours, and dyspnea for 12 hours. She reports feeling lightheaded when standing for the past 24 hours. She believes that she has had a fever, due to feeling diaphoretic on occasion, recently. The patient states that she took Tylenol PM cough and cold last night, then [place] cough and cold this morning. She also took 2 tablets of Excedrin Migraine today, without improvement of her symptoms. Here in the ED, the patient is found to be hemodynamically stable, afebrile, saturating 96% on room air. Other than her chronic headache and sinus congestion, prior to 48 hours, the patient denies having a recent fever, chills, sore throat, ear pain, cough, dyspnea, chest pain, palpitations, nausea, vomiting, constipation, diarrhea, abdominal pain, urinary symptoms, recent weight gain or weight loss, recent bloody bowel movements or black bowel movements, recent joint aches, or rashes. The patient's PCP is CJ Castellanos. She has not received an influenza vaccine this season, but agreed to receive one here health system. Treatments STRATEGIC PLANNER: Reports: Other (see below) Other Treatments STRATEGIC PLANNER: jovani seltzer plus; cold and cough; 2 excedrin migraine Throat Pain Score (Numeric/FACES): 7 Headache Pain Score (Numeric/FACES): 10 - Related Data Allergies Allergy/AdvReac Type Severity Reaction Status Date / Time meperidine [From Demerol] Allergy Severe Hives Verified 10/19/19 09:47 penicillin G Allergy Severe Anaphylactic Verified 10/19/19 09:47 Shock Sulfa (Sulfonamide Allergy Severe Hives Verified 10/19/19 09:47 Antibiotics) Home Meds: Home Meds Levothyroxine [Synthroid] 50 mcg PO ACBREAKFAST 02/02/18 [History] Ondansetron [Zofran ODT] 4 mg PO Q6H PRN #20 tab.dis 10/19/19 [Rx] Past Medical History HEENT History: Reports: Allergic Rhinitis Cardiovascular History: Reports: Blood Clots/VTE/DVT (DVT around 2006) Gastrointestinal History: Reports: Diverticulosis (diverticulitis) Psychiatric History: Reports: Anxiety (untreated), Depression (untreated) Endocrine/Metabolic History: Reports: Hypothyroidism, Obesity/BMI 30+ - Past Surgical History HEENT Surgical History: Reports: Adenoidectomy, Myringotomy w Tube(s) (bilateral), Tonsillectomy GI Surgical History: Reports: Cholecystectomy (around 2009) Female Surgical History: Reports: Section (x 1), Hysterectomy (partial), Tubal Ligation Musculoskeletal Surgical History: Reports: Arthroscopic Knee (right) Social & Family History - Family History Family Medical History: Noncontributory - Tobacco Use Tobacco Use Status *Q: Former Tobacco User Years of Tobacco use: 18 Packs/Tins Daily: 1 Month/Year Tobacco Last Used: Quit 07/14/2019 - Caffeine Use Caffeine Use: Reports: Coffee Other Caffeine Use: lots of coffee - Alcohol Use Alcohol Use History: Yes Alcohol Use Frequency: Socially - Recreational Drug Use Recreational Drug Use: No - Living Situation & Occupation Living situation: Reports: , with Significant Other (Fianc), with Family (4 kids) 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 ED EXAM, GENERAL - Physical Exam Exam: See Below Exam Limited By: No Limitations General Appearance: Alert, WD/WN, No Apparent Distress Eye Exam: Bilateral Eye: EOMI, Normal Inspection Ears: Normal External Exam, Normal Canal, Hearing Grossly Normal, Other (Bilateral TMs bulging with clear fluid, consistent with serous otitis media. No bubbles. No erythema or purulence to suggest an infection) Nose: Normal Inspection, No Blood, Other (Bilateral nasal mucosa edema) Throat/Mouth: Normal Inspection, Normal Lips, Normal Teeth, Normal Gums, Normal Oropharynx, Normal Voice, No Airway Compromise Head: Atraumatic, Normocephalic Neck: Normal Inspection, Supple, Non-Tender, Full Range of Motion. No: Lymphadenopathy (L), Lymphadenopathy (R) Respiratory/Chest: No Respiratory Distress, Lungs Clear, Normal Breath Sounds, No Accessory Muscle Use. No: Decreased Breath Sounds, Crackles, Rhonchi, Wheezing, Stridor, Prolonged Expiration Cardiovascular: Normal Peripheral Pulses, Regular Rate, Rhythm, No Gallop, No JVD, No Murmur, No Rub Peripheral Pulses: 3+: Radial (L), Radial (R) GI/Abdominal: Normal Bowel Sounds, Soft, Non-Tender, No Organomegaly, No Distention, No Abnormal Bruit, No Mass Back Exam: Normal Inspection, Full Range of Motion, NT Extremities: Normal Inspection, Normal Range of Motion, Normal Capillary Refill Neurological: Alert, Oriented, Normal Cognition, No Motor/Sensory Deficits Psychiatric: Normal Affect Skin Exam: Warm, Dry, Intact, Normal Color, No Rash #1 Interpretation EKG Date: 02/27/20 Time: 21:04 Rhythm: Other (Sinus bradycardia) Rate (Beats/Min): 57 [place]: Normal P-Wave: Present QRS: Normal ST-T: Normal QT: Normal (at upper limit of normal) Comparison: No Change (06/17/2017) Course - Vital Signs Last Recorded V/S: Last Vital Signs Temp 36.2 C 02/27/20 20:05 Pulse 71 02/27/20 20:05 Resp 20 02/27/20 20:05 BP 126/79 02/27/20 20:05 Pulse Ox 98 02/27/20 21:36 Orthostatic Blood Pressure [ 138/74 Standing] Orthostatic Blood Pressure [ 131/71 Supine] - Orders/Labs/Meds Orders: Active Orders 24 hr Category Date Time Status EKG Documentation Completion [RC] STAT Care 02/27/20 20:27 Active Influenza Vaccine Charge [RC] .DISCHARGE Care 02/27/20 20:23 Active Orthostatic Vital Signs [RC] STAT Care 02/27/20 20:27 Active Chest 2V [CR] Stat Exams 02/27/20 20:26 Taken Max Facial Sinus wo Cont [CT] Stat Exams 02/27/20 20:25 Taken CORONAVIRUS COVID-19 PCR PHL Stat Lab 02/27/20 21:09 Received CULTURE STREP A CONFIRMATION [RM] Stat Lab 02/27/20 20:18 Results STREP SCRN A RAPID W CULT CONF [RM] Stat Lab 02/27/20 20:18 Results Sodium Chloride 0.9% [Normal Saline] 1,000 ml Med 02/27/20 20:45 Active IV ASDIRECTED Isolation [COMM] Routine Oth 02/27/20 20:24 Ordered Medication Orders Sodium Chloride (Normal Saline) 1,000 mls @ 150 mls/hr IV ASDIRECTED BRISSA Last Admin: 02/27/20 21:36 Dose: 150 mls/hr Documented by: ANTONIO Labs: Laboratory Tests 02/27/20 02/27/20 02/27/20 Range/Units 20:49 20:49 20:49 WBC 6.88 (3.98-10.04) K/mm3 RBC 4.68 (3.98-5.22) M/mm3 Hgb 12.6 (11.2-15.7) gm/dl Hct 39.1 (34.1-44.9) % MCV 83.5 (79.4-94.8) fl MCH 26.9 (25.6-32.2) pg MCHC 32.2 (32.2-35.5) g/dl RDW Std Deviation 43.7 (36.4-46.3) fL Plt Count 236 D (182-369) K/mm3 MPV 12.7 H (9.4-12.3) fl Neutrophils % (Manual) 51 (40-60) % Band Neutrophils % 0 (0-10) % Lymphocytes % (Manual) 31 (20-40) % Atypical Lymphs % 0 % Monocytes % (Manual) 12 H (2-10) % Eosinophils % (Manual) 5 (0.7-5.8) % Basophils % (Manual) 1 (0.1-1.2) Platelet Estimate Adequate RBC Morph Comment Normal D-Dimer, Quantitative 0.39 (0.19-0.50) mg/L Sodium 142 (136-145) mEq/L Potassium 3.0 L (3.5-5.1) mEq/L Chloride 105 (98-107) mEq/L Carbon Dioxide 26 (21-32) mEq/L Anion Gap 14.0 (5-15) BUN 13 (7-18) mg/dL Creatinine 0.8 (0.55-1.02) mg/dL Est Cr Clr Drug Dosing 96.18 mL/min Estimated GFR (MDRD) > 60 (>60) mL/min BUN/Creatinine Ratio 16.3 (14-18) Glucose 100 (74-106) mg/dL Calcium 8.2 L (8.5-10.1) mg/dL Magnesium 1.8 (1.8-2.4) mg/dl Total Bilirubin 0.3 (0.2-1.0) mg/dL AST 8 L (15-37) U/L ALT 23 (14-59) U/L Alkaline Phosphatase 62 (46-116) U/L Troponin I < 0.017 (0.00-0.056) ng/mL C-Reactive Protein 1.1 H* (<1.0) mg/dL Total Protein 6.9 (6.4-8.2) g/dl Albumin 3.3 L (3.4-5.0) g/dl Globulin 3.6 gm/dL Albumin/Globulin Ratio 0.9 L (1-2) TSH 3rd Generation 7.677 H (0.358-3.74) uIU/mL Meds: Medications Generic Name Dose Route Start Last Admin Trade Name Freq PRN Reason Stop Dose Admin Sodium Chloride 1,000 mls @ 150 mls/hr 02/27/20 20:45 02/27/20 21:36 Normal Saline IV 150 mls/hr ASDIRECTED BRISSA Administration Discontinued Medications Generic Name Dose Route Start Last Admin Trade Name Freq PRN Reason Stop Dose Admin Influenza Virus Vaccine 1 each 02/27/20 20:23 Pharmacy To Dose - Influenza Vaccine IM 02/27/20 20:24 ONETIME ONE Influenza Virus Vaccine 60 mcg 02/27/20 20:30 02/27/20 21:14 Fluzone Quad [id number] Syringe IM 02/27/20 20:31 60 mcg .ONCE ONE Administration Ondansetron HCl 4 mg 02/27/20 20:31 02/27/20 21:28 Zofran IVPUSH 02/27/20 20:32 4 mg ONETIME ONE Administration Potassium Chloride 40 meq 02/27/20 21:48 Klor-Con M20 PO 02/27/20 21:49 ONETIME ONE - Re-Assessments/Exams Free Text/Narrative Re-Assessment/Exam: 02/27/20 20:31 As above, the patient has had a headache for the past 3 to 4 weeks, along with left ear pain due to sinus congestion. She has had 2 days of a sore throat, 2 days of nausea without vomiting, felt diaphoretic, had an nonproductive cough, rapid palpitations, lightheadedness with standing, dyspnea, and watery diarrhea. I have ordered an extensive work-up that includes orthostatics, blood work, a chest x-ray, a CT of the sinuses without contrast, a rapid strep test, and influenza swab, a send-out swab for the SARS-CoV-2 virus, and an ECG. In the meantime, the patient will receive IV fluid and IV Zofran. 02/27/20 21:16 2-view chest x-ray is read by [facility] as: 1. No active disease of the chest. 2. No significant interval change when compared to the CR chest 1V Frontal 01/05/2019 10:[address] maxillofacial without contrast is read by [facility] as: 1. Nodule inferior right maxillary sinus probably a retention cyst. Unchanged. 2. Occluded right ostiomeatal unit. 02/27/20 21:41 The patient is not orthostatic. 02/27/20 21:48 The patient's CBC is unremarkable. Her CMP is remarkable for a potassium depressed at 3.0, with the remainder of her CMP being unremarkable. Her magnesium level is within normal limits at 1.8. Her TSH is significantly elevated at 7.677. Her troponin is undetectably low. Her D-dimer is within normal limits at 0.39. Her CRP is slightly elevated at 1.1. Her rapid strep test returned negative. Results of her influenza swab are still pending. 02/27/20 22:23 The patient's influenza swab has returned negative. 02/27/20 22:28 Test results discussed with the patient. As above, today's work-up is grossly unremarkable. She was found to be modestly hypokalemic, and received oral potassium replacement. Her TSH is elevated, although she states that she is taking her thyroid medicine, but acknowledges that she takes it about 30 minutes before eating, which may be the problem. She should probably wait 60 minutes before eating anything after taking it. I will have her follow-up with her PCP in that regard. Her PCP may want to refer her to an ENT. Departure - Departure Time of Disposition: 22:32 Disposition: Home, Self-Care 01 Condition: Good Clinical Impression: Sinusitis, Viral URI, Hypothyroid Headache Qualifiers: Headache type: unspecified Headache chronicity pattern: acute headache Intractability: not intractable Qualified Code(s): R51 - Headache - Discharge Information *PRESCRIPTION DRUG MONITORING PROGRAM REVIEWED*: Not Applicable *COPY OF PRESCRIPTION DRUG MONITORING REPORT IN PATIENT JOVAN: Not Applicable Referrals: Samia Carson PA-C [Primary Care Provider] - Forms: ED Department Discharge Additional Instructions: You were seen in the emergency room for 3 to 4 weeks of a headache, sinus congestion with left ear pain, 2 days of a sore throat, 2 days of nausea without vomiting, sweatiness, a dry cough, palpitations, lightheadedness with standing, shortness of breath, and watery diarrhea. Work-up in the ER included positional blood pressure checks, blood work, a chest x-ray, a CT of your sinuses, a rapid strep test, and influenza swab, a send-out swab for the SARS-CoV-2 virus, and an ECG. Your work-up found your potassium to be depressed at 3.0. You were given oral potassium replacement in the ER. Your TSH was found to be elevated at 7.677. This indicates that you are either not taking enough levothyroxine, or you are not waiting long enough before eating, causing malabsorption. The remainder of your work-up was unremarkable. You will be notified within the next few days of the results of your swab for the SARS-CoV-2 virus. Based on your history, physical exam, and ER tests, you are most likely suffering from a viral URI. We recommend that you follow-up with your PCP, CJ Castellanos, to check on your thyroid medication. She may also want to refer you to an ENT. If any other problems, please do not hesitate to return to the ER. Sepsis Event Note (ED) - Evaluation Sepsis Screening Result: No Definite Risk - Focused Exam Vital Signs: Vital Signs Temp Pulse Resp BP Pulse Ox 02/27/20 21:36 98 02/27/20 20:05 36.2 C 71 20 126/79 96 - My Orders Last 24 Hours: My Active Orders 02/27/20 20:18 CULTURE STREP A CONFIRMATION [RM] Stat STREP SCRN A RAPID W CULT CONF [RM] Stat 02/27/20 20:23 Influenza Vaccine Charge [RC] .DISCHARGE 02/27/20 20:24 Isolation [COMM] Routine 02/27/20 20:25 Max Facial Sinus wo Cont [CT] Stat 02/27/20 20:26 Chest 2V [CR] Stat 02/27/20 20:27 EKG Documentation Completion [RC] STAT Orthostatic Vital Signs [RC] STAT 02/27/20 20:45 Sodium Chloride 0.9% [Normal Saline] 1,000 ml IV ASDIRECTED 02/27/20 21:09 CORONAVIRUS COVID-19 PCR PHL Stat - Assessment/Plan Last 24 Hours: My Active Orders 02/27/20 20:18 CULTURE STREP A CONFIRMATION [RM] Stat STREP SCRN A RAPID W CULT CONF [RM] Stat 02/27/20 20:23 Influenza Vaccine Charge [RC] .DISCHARGE 02/27/20 20:24 Isolation [COMM] Routine 02/27/20 20:25 Max Facial Sinus wo Cont [CT] Stat 02/27/20 20:26 Chest 2V [CR] Stat 02/27/20 20:27 EKG Documentation Completion [RC] STAT Orthostatic Vital Signs [RC] STAT 02/27/20 20:45 Sodium Chloride 0.9% [Normal Saline] 1,000 ml IV ASDIRECTED 02/27/20 21:09 CORONAVIRUS COVID-19 PCR PHL Stat
[2020-02-27] MEDS ORDERED: Sodium Chloride 0.9% 1,000 ML IV SCH (20:45)
[2020-02-27] MEDS ORDERED: Potassium Chloride 20 MEQ Tab.ER PO ONE (21:48)
[2020-02-27 22:45] VITALS: BP 110/70; PULSE 62
== END 2020-02-27 23:00 | disposition home or self-care (01) ==
LOC: SUPCPDRO 19:48 → JD.ED 19:48
DX: J01.90 Acute sinusitis, unspecified (principal); U07.1 COVID-19; E03.9 Hypothyroidism, unspecified; E66.9 Obesity, unspecified; Z87.891 Personal history of nicotine dependence; Z88.5 Allergy status to narcotic agent; Z88.0 Allergy status to penicillin; Z88.2 Allergy status to sulfonamides; Z79.899 Other long term (current) drug therapy; Z23 Encounter for immunization
CPT/HCPCS: 36415; 70486; 71046; 80053; 83735; 84443; 84484; 85007; 85027; 85379; 86140; 87081; 87430; 87635; 87804; 90471; 90686; 93005; 96374; 99284; A9270; J2405; J7030; 93010; G0008; U0002

== ENCOUNTER 2020-05-31 12:28 | Emergency (ER) | payer MEDICAID ==
[2020-05-31 12:36] VITALS: BP 131/61; PULSE 73
[2020-05-31] MEDS ORDERED: Ketorolac 60 MG/2 ML SDV IM ONE (12:51)
--- NOTE | 2020-05-31 12:51 | EDM.PDOC ---
<Angelique Parada - Last Filed: 05/31/20 12:46> ED HPI GENERAL MEDICAL PROBLEM - General Chief Complaint: Lower Extremity Injury/Pain Stated Complaint: RT KNEE PAIN Time Seen by Provider: 05/31/20 12:33 Source of Information: Reports: Patient History Limitations: Reports: No Limitations - History of Present Illness INITIAL COMMENTS - FREE TEXT/NARRATIVE: Susana is a 39 year old female presenting to the ED with complaints of right knee pain. She states she was walking to get coffee and took three steps and had immediate pain so severe it "almost dropped her to her knees." She denies any recent trauma to her knee. She states she has diffuse knee pain, but is more localized to the tibial plateau region as well as the lateral aspect of the knee. She states the pain radiates up and down her leg, but denies any sensation loss. She states the pain is 10/10 and sharp in nature. She denies taking anything for the pain as she wanted to get here as soon as possible and head back to work. The last time this happened to her was roughly two years ago. She states she has always had trouble with right knee pain since she was a teenager. She had an arthroscopy in 2008 and states they "scraped out some cartilage" but did not mention any ligamentous tears. She denies any sick symptom. Right Knee Pain Score (Numeric/FACES): 10 - Related Data Allergies Allergy/AdvReac Type Severity Reaction Status Date / Time meperidine [From Demerol] Allergy Severe Hives Verified 05/31/20 12:35 penicillin G Allergy Severe Anaphylactic Verified 05/31/20 12:35 Shock Sulfa (Sulfonamide Allergy Severe Hives Verified 05/31/20 12:35 Antibiotics) Home Meds: Home Meds Levothyroxine [Synthroid] 50 mcg PO ACBREAKFAST 02/02/18 [History] Acetaminophen/HYDROcodone [Wel[place] 325-5 MG] 1 tab PO Q6H PRN #12 tablet 05/31/20 [Rx] Naproxen [Naprosyn] 500 mg PO Q12HR #14 tab 05/31/20 [Rx] Past Medical History HEENT History: Reports: Allergic Rhinitis Cardiovascular History: Reports: Blood Clots/VTE/DVT Other Cardiovascular History: "long QT syndrome" Respiratory History: Reports: None Gastrointestinal History: Reports: Diverticulosis Other Gastrointestinal History: Left lower quadrant abdominal pain, diarrhea Genitourinary History: Reports: Other (See Below) Other Genitourinary History: Candidida vaginitis 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: Musculoskeletal History: Reports: None Neurological History: Reports: Migraines Psychiatric History: Reports: Anxiety, Depression Endocrine/Metabolic History: Reports: Hypothyroidism, Obesity/BMI 30+ Hematologic History: Reports: Other (See Below) Other Hematologic History: Blood clotting disorder (Patient stated she was on blood thinners for approximately 2 months after hysterectomy) Immunologic History: Reports: None Oncologic (Cancer) History: Reports: None Dermatologic History: Reports: Cellulitis - Infectious Disease History Infectious Disease History: Reports: None - Past Surgical History HEENT Surgical History: Reports: Adenoidectomy, Myringotomy w Tube(s), Tonsillectomy GI Surgical History: Reports: Cholecystectomy Female Surgical History: Reports: Section, Hysterectomy, Tubal Ligation Musculoskeletal Surgical History: Reports: Arthroscopic Knee Social & Family History - Family History Family Medical History: No Pertinent Family History - Tobacco Use Tobacco Use Status *Q: Never Tobacco User - Caffeine Use Caffeine Use: Reports: Coffee Other Caffeine Use: lots of coffee - Recreational Drug Use Recreational Drug Use: No - Living Situation & Occupation Living situation: Reports: , with Significant Other (Fianc), with Family (4 kids) 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 Constitutional: Reports: No Symptoms Eyes: Reports: No Symptoms Ears: Reports: No Symptoms Nose: Reports: No Symptoms Mouth/Throat: Reports: No Symptoms Respiratory: Reports: No Symptoms Cardiovascular: Reports: No Symptoms GI/Abdominal: Reports: No Symptoms Genitourinary: Reports: No Symptoms Musculoskeletal: Reports: Other (Severe right knee pain that is localized to the lateral portion of the knee and tibial plateau. ) Skin: Reports: No Symptoms Neurological: Reports: No Symptoms Psychiatric: Reports: No Symptoms ED EXAM, GENERAL - Physical Exam Exam: See Below General Appearance: Alert, WD/WN, No Apparent Distress, Obese Head: Atraumatic, Normocephalic Neck: Normal Inspection, Supple, Non-Tender, Full Range of Motion Cardiovascular: Normal Peripheral Pulses, Regular Rate, Rhythm, No Edema, No JVD, No Murmur GI/Abdominal: Normal Bowel Sounds, Soft, Non-Tender, No Organomegaly, No Distention, No Abnormal Bruit, No Mass Extremities: Limited Range of Motion (Patient cannot fully extend or flex right knee. ), Other (Patient is exquisitely tender upon palpation, specifically on the lateral aspect of the knee as well as the tibial plateau. Aiyana's test appeared to be positive as it illicited pain, but there was no audible "click" or "thud". Ambulation back to the exam room was decreased due to pain. ) Neurological: Alert, Oriented, CN II-XII Intact, Normal Cognition Psychiatric: Normal Affect, Normal Mood Skin Exam: Warm, Dry, Intact, Normal Color, No Rash Lymphatic: No Adenopathy Course - Re-Assessments/Exams Free Text/Narrative Re-Assessment/Exam: 05/31/20 13:03 Susana is a 39 year old female presenting to the ED with right knee pain. She was walking when the severe pain started. She denies trauma. She has had ongoing problems with her right knee since she was in high school and had an arthroscopy done in 2008. She is obese and would benefit from weight loss to help with her knee pain. She requests something for pain, so I will order Toradol and a knee x-ray to potentially determine the cause of knee pain. Departure - Departure Disposition: Home, Self-Care 01 Clinical Impression: Arthralgia of right knee - Discharge Information Prescriptions: Naproxen [Naprosyn] 500 mg PO Q12HR #14 tab Acetaminophen/HYDROcodone [[place] 325-5 MG] 1 tab PO Q6H PRN #12 tablet PRN Reason: Pain Instructions: Joint Pain, [id number] Referrals: Samia Carson PA-C [Primary Care Provider] - Forms: ED Department Discharge Additional Instructions: You have been evaluated in the ED for your right knee pain. Your x-ray demonstrated Diffuse degenerative change, compatible with arthritis. Please use ice as tolerated to the affected area. You may elevate the affected area to provide further relief from swelling. You were given a prescription for Naprosyn, 1 tablet every 12 hours for pain/inflammation relief. You were given a prescription for a strong pain medication, hydrocodone/acetaminophen 5/325mg, please take 1 tab every 6 hours as needed for pain not relieved by Tylenol or ibuprofen alone. Please note this does contain Tylenol in it, so do not take more than 4000 mg in a 24-hour time span. These medications can be addictive, so please take as few as possible to achieve adequate pain control. These meds can also be quite constipating, recommend that you increase your oral fluid intake and take a stool softener like MiraLAX while taking these medications. Please call Ortho for follow-up and further evaluation Dr. Verde is our orthopedic surgeon, his office number is [phone]. Please call and set up an appointment as soon as possible for further management. Please return to ED if your symptoms should change or worsen. Sepsis Event Note (ED) - Evaluation Sepsis Screening Result: No Definite Risk <Noelle Napier V - Last Filed: 05/31/20 13:57> Course - Vital Signs Last Recorded V/S: Last Vital Signs Temp 97.8 F 05/31/20 12:33 Pulse 73 05/31/20 12:33 Resp 18 05/31/20 12:33 BP 131/61 05/31/20 12:33 Pulse Ox 97 05/31/20 12:33 - Orders/Labs/Meds Orders: Active Orders 24 hr Category Date Time Status DME for Discharge [COMM] Routine Oth 05/31/20 13:52 Ordered Meds: Medications Discontinued Medications Generic Name Dose Route Start Last Admin Trade Name Guru PRN Reason Stop Dose Admin Ketorolac Tromethamine 60 mg 05/31/20 12:51 05/31/20 13:08 Toradol IM 05/31/20 12:52 60 mg ONETIME ONE Administration - Re-Assessments/Exams Free Text/Narrative Re-Assessment/Exam: 05/31/20 13:14 I have read and reviewed the student's HPI and examined the patient and agree with CJ Dumont-student. Pelvic x-rays were reviewed, and these do demonstrate some arthritic type changes per my review and Dr. Contreras's. Official radiology read is still pending. Patient was given the IM Toradol roughly 5 minutes ago, we will let this medication have some more time to work, and will then reassess her knee pain. 05/31/20 13:54 Patient notes that her knee pain is slightly better, but she did not receive a lot of pain relief from the Toradol. For today's purposes we will get her some little stronger, Weldon for pain not relieved by Naprosyn alone, some tablets of Naprosyn and have her follow-up with Dr. Verde for arthritis of her right knee. X-ray did demonstrate degenerative change, worsened from previous study. Departure - Departure Time of Disposition: 13:55 Condition: Good - Discharge Information *PRESCRIPTION DRUG MONITORING PROGRAM REVIEWED*: Yes *COPY OF PRESCRIPTION DRUG MONITORING REPORT IN PATIENT JOVAN: No Sepsis Event Note (ED) - Focused Exam Vital Signs: Vital Signs Temp Pulse Resp BP Pulse Ox 05/31/20 12:33 97.8 F 73 18 131/61 97 - My Orders Last 24 Hours: My Active Orders 05/31/20 13:52 DME for Discharge [COMM] Routine - Assessment/Plan Last 24 Hours: My Active Orders 05/31/20 13:52 DME for Discharge [COMM] Routine
--- NOTE | 2020-05-31 13:23 | CR ---
Right knee: 4 views of the right knee were obtained. Comparison: Prior right knee radiographic study of 08/29/17. Lateral joint space narrowing is seen. Minimal joint effusion is noted. Osteophytes are noted off the medial and lateral knee. Small bony density is noted off the medial femoral epicondyle which is stable. Impression: 1. Degenerative change as noted above which has progressed from previous study. 2. Small joint effusion is seen. Diagnostic code #3
== END 2020-05-31 14:07 | disposition home or self-care (01) ==
LOC: JD.ED 12:28
DX: M25.561 Pain in right knee (principal); E03.9 Hypothyroidism, unspecified; E66.9 Obesity, unspecified; Z68.41 Body mass index [BMI] 40.0-44.9, adult; Z88.8 Allergy status to other drugs, medicaments and biological substances; Z88.0 Allergy status to penicillin; Z88.2 Allergy status to sulfonamides; Z79.899 Other long term (current) drug therapy
CPT/HCPCS: 73564; 96372; 99283; J1885

== ENCOUNTER 2021-01-18 23:05 | Emergency (ER) | payer MEDICAID ==
[2021-01-18 23:22] VITALS: BP 135/99; PULSE 75
--- NOTE | 2021-01-18 23:49 | EDM.PDOC ---
ED HPI GENERAL MEDICAL PROBLEM - General Chief Complaint: General Stated Complaint: HEART RACING/DOESN'T FEEL WELL Time Seen by Provider: 01/18/21 23:29 Source of Information: Reports: Patient History Limitations: Reports: No Limitations - History of Present Illness INITIAL COMMENTS - FREE TEXT/NARRATIVE: Mrs. Maldonado is a very pleasant 40-year-old woman who now presents the ED stating that she has had a headache on and off for the past 2 or 3 weeks, after receiving dental fillings about 3 weeks ago. She states that she has had urinary frequency for the past 2 days, although denies having dysuria. She states that she had some watery diarrhea last night, and that she has been feeling slightly nauseated, although has not vomited. She states that she discovered that her feet were swollen when she tried to get into her 's shoes this afternoon, then felt rapid palpitations when upright around 19:00 tonight. She expressly denies feeling chest pain. No recent fever or dyspnea. The patient states that she has had rapid palpitations a few times in the past, although has not previously sought medical evaluation. Here in the ED, the patient is found to be hemodynamically stable, afebrile, saturating 98% on room air. She appears to be comfortable, in no acute distress. Prior to a couple of days ago, the patient denies having a recent fever, chills, sore throat, ear pain, nasal or sinus congestion, cough, dyspnea, chest pain, palpitations, nausea, vomiting, constipation, diarrhea, abdominal pain, urinary symptoms, recent weight gain or weight loss, recent bloody bowel movements or black bowel movements, recent joint aches, or rashes. The patient's PCP is CJ Castellanos. She has not received a COVID vaccination. Headache Pain Score (Numeric/FACES): 8 - Related Data Allergies Allergy/AdvReac Type Severity Reaction Status Date / Time meperidine [From Demerol] Allergy Severe Hives Verified 01/18/21 23:16 penicillin G Allergy Severe Anaphylactic Verified 01/18/21 23:16 Shock Sulfa (Sulfonamide Allergy Severe Hives Verified 01/18/21 23:16 Antibiotics) Home Meds: Home Meds Levothyroxine [Synthroid] 50 mcg PO ACBREAKFAST 02/02/18 [History] Past Medical History HEENT History: Reports: Allergic Rhinitis Cardiovascular History: Reports: Blood Clots/VTE/DVT (LLE DVT 2006) Gastrointestinal History: Reports: Diverticulosis (diverticulitis) Psychiatric History: Reports: Anxiety (untreated), Depression (untreated) Endocrine/Metabolic History: Reports: Hypothyroidism, Obesity/BMI 30+ - Infectious Disease History Infectious Disease History: Reports: Novel Coronavirus (dx'd 02/27/2020) - Past Surgical History HEENT Surgical History: Reports: Adenoidectomy, Myringotomy w Tube(s) (bilateral), Oral Surgery (dental extractions), Tonsillectomy GI Surgical History: Reports: Cholecystectomy (around 2009) Female Surgical History: Reports: Section (x 1), Hysterectomy (partial), Tubal Ligation Musculoskeletal Surgical History: Reports: Arthroscopic Knee (right) Social & Family History - Tobacco Use Tobacco Use Status *Q: Former Tobacco User Years of Tobacco use: 19 Packs/Tins Daily: 1 Month/Year Tobacco Last Used: Quit Jul 2019 Tobacco Use Comment: Started smoking 2000 - Caffeine Use Caffeine Use: Reports: Coffee Other Caffeine Use: lots of coffee - Alcohol Use Alcohol Use History: Yes Date/Time of Last Drink Comment: last drank 12/16/2020 Alcohol Use Frequency: Socially - Recreational Drug Use Recreational Drug Use: No - Living Situation & Occupation Living situation: Reports: , with Spouse, with Family (4 kids) Occupation: Unemployed ED ROS GENERAL - Review of Systems Review Of Systems: Comprehensive ROS is negative, except as noted in HPI. ED EXAM, GENERAL - Physical Exam Exam: See Below Exam Limited By: No Limitations General Appearance: Alert, WD/WN, No Apparent Distress Eye Exam: Bilateral Eye: EOMI, Normal Inspection Ears: Normal External Exam, Hearing Grossly Normal Nose: Normal Inspection Throat/Mouth: Normal Inspection, Normal Lips, Normal Voice, No Airway Compromise Head: Atraumatic, Normocephalic Neck: Normal Inspection, Full Range of Motion Respiratory/Chest: No Respiratory Distress, Lungs Clear, Normal Breath Sounds, No Accessory Muscle Use. No: Decreased Breath Sounds, Crackles, Rhonchi, Wheezing, Stridor, Prolonged Expiration Cardiovascular: Normal Peripheral Pulses, Regular Rate, Rhythm, No Gallop, No JVD, No Murmur, No Rub Peripheral Pulses: 3+: Radial (L), Radial (R) GI/Abdominal: Normal Bowel Sounds, Soft, Non-Tender, No Organomegaly, No Distention, No Abnormal Bruit, No Mass Back Exam: Normal Inspection, Full Range of Motion, NT Extremities: Normal Range of Motion, Normal Capillary Refill (both feet are warm, well perfused), Other (1-2+ pitting pedal edema, with only trace pretibial edema, bilaterally) Neurological: Alert, Oriented, Normal Cognition, No Motor/Sensory Deficits Psychiatric: Normal Affect Skin Exam: Warm, Dry, Intact, Normal Color, No Rash #1 Interpretation EKG Date: 01/18/21 Time: 23:18 Rhythm: NSR Rate (Beats/Min): 69 Kaplan: Normal P-Wave: Present QRS: Normal ST-T: Normal QT: Normal Comparison: No Change (02/27/2020) Course - Vital Signs Last Recorded V/S: Last Vital Signs Temp 36.8 C 01/18/21 23:17 Pulse 75 01/18/21 23:17 Resp 14 01/18/21 23:17 BP 135/99 H 01/18/21 23:17 Pulse Ox 98 01/18/21 23:17 Orthostatic Blood Pressure [ 153/88 Standing] Orthostatic Blood Pressure [ 147/85 Supine] - Orders/Labs/Meds Orders: Active Orders 24 hr Category Date Time Status Chest 2V [CR] Stat Exams 01/18/21 23:43 Taken Labs: Laboratory Tests 01/19/21 01/19/21 01/19/21 Range/Units 00:12 00:12 00:12 WBC 10.98 H (3.98-10.04) K/mm3 RBC 4.60 (3.98-5.22) M/mm3 Hgb 12.6 (11.2-15.7) gm/dl Hct 39.2 (34.1-44.9) % MCV 85.2 (79.4-94.8) fl MCH 27.4 (25.6-32.2) pg MCHC 32.1 L (32.2-35.5) g/dl RDW Std Deviation 43.1 (36.4-46.3) fL Plt Count 293 (182-369) K/mm3 MPV 12.3 (9.4-12.3) fl Neutrophils % (Manual) 51 (40-60) % Band Neutrophils % 0 (0-10) % Lymphocytes % (Manual) 38 (20-40) % Atypical Lymphs % 0 % Monocytes % (Manual) 5 (2-10) % Eosinophils % (Manual) 5 (0.7-5.8) % Basophils % (Manual) 1 (0.1-1.2) Platelet Estimate Adequate RBC Morph Comment Normal D-Dimer, Quantitative (0.19-0.50) mg/L Sodium 143 (136-145) mEq/L Potassium 4.0 (3.5-5.1) mEq/L Chloride 107 (98-107) mEq/L Carbon Dioxide 29 (21-32) mEq/L Anion Gap 11.0 (5-15) BUN 13 (7-18) mg/dL Creatinine 0.8 (0.55-1.02) mg/dL Est Cr Clr Drug Dosing 95.24 mL/min Estimated GFR (MDRD) > 60 (>60) mL/min BUN/Creatinine Ratio 16.3 (14-18) Glucose 106 H (70-99) mg/dL Lactic Acid 1.1 (0.4-2.0) mmol/L Calcium 8.8 (8.5-10.1) mg/dL Magnesium 1.8 (1.8-2.4) mg/dL Total Bilirubin 0.3 (0.2-1.0) mg/dL AST 11 L (15-37) U/L ALT 27 (14-59) U/L Alkaline Phosphatase 55 (46-116) U/L Troponin I < 0.017 (0.00-0.056) ng/mL C-Reactive Protein 1.3 H* (<1.0) mg/dL NT-Pro-B Natriuret Pep (0-125) pg/mL Total Protein 7.3 (6.4-8.2) g/dl Albumin 3.4 (3.4-5.0) g/dl Globulin 3.9 gm/dL Albumin/Globulin Ratio 0.9 L (1-2) TSH 3rd Generation 10.483 H (0.358-3.74) uIU/mL Urine Color (Yellow) Urine Appearance (Clear) Urine pH (5.0-8.0) Ur Specific [place] (1.005-1.030) Urine Protein (Negative) Urine Glucose (UA) (Negative) Urine Ketones (Negative) Urine Occult Blood (Negative) Urine Nitrite (Negative) Urine Bilirubin (Negative) Urine Urobilinogen (0.2-1.0) Ur Leukocyte Esterase (Negative) Urine RBC (0-5) /hpf Urine WBC (0-5) /hpf Ur Squamous Epith Cells (0-5) /hpf Urine Bacteria (FEW) /hpf Urine Mucus (FEW) /hpf SARS-CoV-2 RNA (RICKIE) (NEGATIVE) 01/19/21 01/19/21 01/19/21 Range/Units 00:12 00:12 01:11 WBC (3.98-10.04) K/mm3 RBC (3.98-5.22) M/mm3 Hgb (11.2-15.7) gm/dl Hct (34.1-44.9) % MCV (79.4-94.8) fl MCH (25.6-32.2) pg MCHC (32.2-35.5) g/dl RDW Std Deviation (36.4-46.3) fL Plt Count (182-369) K/mm3 MPV (9.4-12.3) fl Neutrophils % (Manual) (40-60) % Band Neutrophils % (0-10) % Lymphocytes % (Manual) (20-40) % Atypical Lymphs % % Monocytes % (Manual) (2-10) % Eosinophils % (Manual) (0.7-5.8) % Basophils % (Manual) (0.1-1.2) Platelet Estimate RBC Morph Comment D-Dimer, Quantitative 0.42 (0.19-0.50) mg/L Sodium (136-145) mEq/L Potassium (3.5-5.1) mEq/L Chloride (98-107) mEq/L Carbon Dioxide (21-32) mEq/L Anion Gap (5-15) BUN (7-18) mg/dL Creatinine (0.55-1.02) mg/dL Est Cr Clr Drug Dosing mL/min Estimated GFR (MDRD) (>60) mL/min BUN/Creatinine Ratio (14-18) Glucose (70-99) mg/dL Lactic Acid (0.4-2.0) mmol/L Calcium (8.5-10.1) mg/dL Magnesium (1.8-2.4) mg/dL Total Bilirubin (0.2-1.0) mg/dL AST (15-37) U/L ALT (14-59) U/L Alkaline Phosphatase (46-116) U/L Troponin I (0.00-0.056) ng/mL C-Reactive Protein (<1.0) mg/dL NT-Pro-B Natriuret Pep 54 (0-125) pg/mL Total Protein (6.4-8.2) g/dl Albumin (3.4-5.0) g/dl Globulin gm/dL Albumin/Globulin Ratio (1-2) TSH 3rd Generation (0.358-3.74) uIU/mL Urine Color Yellow (Yellow) Urine Appearance Clear (Clear) Urine pH 5.5 (5.0-8.0) Ur Specific [place] > or = 1.030 (1.005-1.030) Urine Protein Negative (Negative) Urine Glucose (UA) Negative (Negative) Urine Ketones Negative (Negative) Urine Occult Blood Negative (Negative) Urine Nitrite Negative (Negative) Urine Bilirubin Negative (Negative) Urine Urobilinogen 0.2 (0.2-1.0) Ur Leukocyte Esterase Negative (Negative) Urine RBC Not seen (0-5) /hpf Urine WBC Not seen (0-5) /hpf Ur Squamous Epith Cells 0-5 (0-5) /hpf Urine Bacteria Rare (FEW) /hpf Urine Mucus Rare (FEW) /hpf SARS-CoV-2 RNA (RICKIE) (NEGATIVE) 01/19/21 Range/Units 01:11 WBC (3.98-10.04) K/mm3 RBC (3.98-5.22) M/mm3 Hgb (11.2-15.7) gm/dl Hct (34.1-44.9) % MCV (79.4-94.8) fl MCH (25.6-32.2) pg MCHC (32.2-35.5) g/dl RDW Std Deviation (36.4-46.3) fL Plt Count (182-369) K/mm3 MPV (9.4-12.3) fl Neutrophils % (Manual) (40-60) % Band Neutrophils % (0-10) % Lymphocytes % (Manual) (20-40) % Atypical Lymphs % % Monocytes % (Manual) (2-10) % Eosinophils % (Manual) (0.7-5.8) % Basophils % (Manual) (0.1-1.2) Platelet Estimate RBC Morph Comment D-Dimer, Quantitative (0.19-0.50) mg/L Sodium (136-145) mEq/L Potassium (3.5-5.1) mEq/L Chloride (98-107) mEq/L Carbon Dioxide (21-32) mEq/L Anion Gap (5-15) BUN (7-18) mg/dL Creatinine (0.55-1.02) mg/dL Est Cr Clr Drug Dosing mL/min Estimated GFR (MDRD) (>60) mL/min BUN/Creatinine Ratio (14-18) Glucose (70-99) mg/dL Lactic Acid (0.4-2.0) mmol/L Calcium (8.5-10.1) mg/dL Magnesium (1.8-2.4) mg/dL Total Bilirubin (0.2-1.0) mg/dL AST (15-37) U/L ALT (14-59) U/L Alkaline Phosphatase (46-116) U/L Troponin I (0.00-0.056) ng/mL C-Reactive Protein (<1.0) mg/dL NT-Pro-B Natriuret Pep (0-125) pg/mL Total Protein (6.4-8.2) g/dl Albumin (3.4-5.0) g/dl Globulin gm/dL Albumin/Globulin Ratio (1-2) TSH 3rd Generation (0.358-3.74) uIU/mL Urine Color (Yellow) Urine Appearance (Clear) Urine pH (5.0-8.0) Ur Specific [place] (1.005-1.030) Urine Protein (Negative) Urine Glucose (UA) (Negative) Urine Ketones (Negative) Urine Occult Blood (Negative) Urine Nitrite (Negative) Urine Bilirubin (Negative) Urine Urobilinogen (0.2-1.0) Ur Leukocyte Esterase (Negative) Urine RBC (0-5) /hpf Urine WBC (0-5) /hpf Ur Squamous Epith Cells (0-5) /hpf Urine Bacteria (FEW) /hpf Urine Mucus (FEW) /hpf SARS-CoV-2 RNA (RICKIE) Negative (NEGATIVE) Meds: Medications Discontinued Medications Generic Name Dose Route Start Last Admin Trade Name Freq PRN Reason Stop Dose Admin Ibuprofen 600 mg 01/19/21 00:34 01/19/21 00:48 Ibuprofen 600 Mg Tab PO 01/19/21 00:35 600 mg ONETIME ONE Administration - Re-Assessments/Exams Free Text/Narrative Re-Assessment/Exam: 01/18/21 23:46 An ECG, obtained shortly after arrival, demonstrates a normal sinus rhythm at 69 bpm, with no ischemic changes, and a normal QTc. I have ordered a work-up that includes orthostatics, numerous blood tests, a swab for the SARS-CoV-2 virus, a urinalysis, a chest x-ray, and an ECG. 01/19/21 01:32 The patient is not orthostatic. Two-view chest radiograph appears to be grossly normal. The cardiac silhouette is within normal limits. No pulmonary vascular congestion. No pleural effusions. No focal infiltrate. No pneumothorax. Formal read per the Radiologist pending. 01/19/21 03:09 The patient's CBC is remarkable for mild leukocytosis of 10.98, but with 0% bandemia, and the remainder of her CBC being unremarkable. Her CMP is remarkable for slight hyperglycemia of 106, and is otherwise unremarkable. Her magnesium level is within normal limits at 1.8. Her lactic acid level is within normal limits at 1.1. Her CRP is mildly elevated at 1.3. Her TSH is significantly elevated at 10.483. Her troponin is undetectably low. Her pro-BNP is within normal limits at 54. Her D-dimer is within normal limits at 0.42. Her swab for the SARS-CoV-2 virus is negative. 01/19/21 03:14 Test results discussed with the patient. As above, with the exception of an elevated TSH, today's work-up is grossly unremarkable. Hypothyroidism, however, would not cause rapid palpitations. It is possible that she is suffering from a viral illness, explaining her mild leukocytosis and slightly elevated CRP. I believe the patient can safely be discharged home. If her symptoms persist, I would like her to follow-up with CJ Castellanos. Departure - Departure Time of Disposition: 03:15 Disposition: Home, Self-Care 01 Condition: Good Clinical Impression: Headache, Rapid palpitations, Pedal edema, Diarrhea, Urinary frequency, Elevated TSH - Discharge Information *PRESCRIPTION DRUG MONITORING PROGRAM REVIEWED*: Not Applicable *COPY OF PRESCRIPTION DRUG MONITORING REPORT IN PATIENT JOVAN: Not Applicable Instructions: Palpitations Referrals: Samia Carson PA-C [Primary Care Provider] - Forms: ED Department Discharge Additional Instructions: You were seen in the emergency room for 2 to 3 weeks of a headache, rapid palpitations, feet swelling, watery diarrhea, slight nausea, and urinary frequency. Work-up in the ER included positional blood pressure checks, numerous blood tests, a swab for the SARS-CoV-2 virus, a urinalysis, a chest x-ray, and an ECG. Your TSH (thyroid stimulating hormone) was found to be elevated at 10.483. This indicates that you MAY be hypothyroid. As discussed, a single TSH level in the ER is not diagnostic. You should have your TSH rechecked in a couple of weeks, when you are feeling better. The remainder of your work-up was unremarkable, and does not explain the cause of your symptoms. It may be that you have a viral illness, although your swab for the SARS-CoV-2 virus was negative. If your symptoms persist, please follow-up with your PCP, CJ Castellanos, for further evaluation. If any other problems, please do not hesitate to return to the ER. Sepsis Event Note (ED) - Evaluation Sepsis Screening Result: No Definite Risk - Focused Exam Vital Signs: Vital Signs Temp Pulse Resp BP Pulse Ox 01/18/21 23:17 36.8 C 75 14 135/99 H 98 - My Orders Last 24 Hours: My Active Orders 01/18/21 23:43 Chest 2V [CR] Stat - Assessment/Plan Last 24 Hours: My Active Orders 01/18/21 23:43 Chest 2V [CR] Stat
[2021-01-19] MEDS ORDERED: Ibuprofen 600 MG Tab PO ONE (00:34)
--- NOTE | 2021-01-19 07:57 | CR ---
Chest: 2 views of the chest were obtained. Comparison: Prior chest x-ray of 01/05/19. Heart size and mediastinum are normal. Lungs are clear with no acute parenchymal change. Surgical clips are present from cholecystectomy. Bony structures appear without acute abnormality. Impression: 1. Nothing acute is seen on 2 view chest x-ray. Diagnostic code #2
== END 2021-01-19 03:29 | disposition home or self-care (01) ==
LOC: JD.ED 23:05
DX: R51.9 Headache, unspecified (principal); R00.2 Palpitations; R60.0 Localized edema; R19.7 Diarrhea, unspecified; R35.0 Frequency of micturition; R94.6 Abnormal results of thyroid function studies; E03.9 Hypothyroidism, unspecified; E66.9 Obesity, unspecified; Z68.42 Body mass index [BMI] 45.0-49.9, adult; Z86.718 Personal history of other venous thrombosis and embolism; Z87.891 Personal history of nicotine dependence; Z20.822 Contact with and (suspected) exposure to COVID-19; Z88.0 Allergy status to penicillin; Z88.2 Allergy status to sulfonamides; Z88.8 Allergy status to other drugs, medicaments and biological substances
CPT/HCPCS: 36415; 71046; 80053; 81001; 83605; 83735; 83880; 84443; 84484; 85007; 85027; 85379; 86140; 87635; 93005; 99285; A9270; 93010; 99284; U0002

== ENCOUNTER 2021-10-04 09:15 | Emergency (ER) | payer MEDICAID ==
[2021-10-04 10:17] VITALS: BP 152/88; PULSE 84
[2021-10-04] MEDS ORDERED: HYDROmorphone 0.5 MG/0.5 ML Syringe IVPUSH ONE (11:09)
[2021-10-04] MEDS ORDERED: Ondansetron 4 MG/2 ML SDV IVPUSH ONE (11:09)
[2021-10-04] MEDS ORDERED: Sodium Chloride 0.9% 1,000 ML IV STA (11:09)
[2021-10-04] MEDS ORDERED: Iopamidol 755 Mg/ML 100 ML Bottle IVPUSH ONE (11:13)
[2021-10-04] MEDS ORDERED: Sodium Chloride 0.9% 10 ML Syringe FLUSH PRN (11:13)
[2021-10-04] MEDS ORDERED: Sodium Chloride 0.9% 100 ML IV SCH (11:15)
[2021-10-04] MEDS ORDERED: Ketorolac 30 MG/ML SDV IVPUSH ONE (11:45)
[2021-10-04] MEDS ORDERED: Levofloxacin 750 MG Tab PO ONE (12:16)
[2021-10-04] MEDS ORDERED: Acetaminophen/oxyCODONE 325-5 MG Tab PO ONE (12:17)
[2021-10-04] MEDS ORDERED: metroNIDAZOLE 500 MG Tab PO ONE (12:17)
== END 2021-10-04 13:12 | disposition home or self-care (01) ==
LOC: JD.ED 09:15
DX: K57.92 Diverticulitis of intestine, part unspecified, without perforation or abscess without bleeding (principal); E03.9 Hypothyroidism, unspecified; E66.9 Obesity, unspecified; Z68.41 Body mass index [BMI] 40.0-44.9, adult; Z86.16 Personal history of COVID-19; Z79.899 Other long term (current) drug therapy; Z90.49 Acquired absence of other specified parts of digestive tract; Z88.6 Allergy status to analgesic agent; Z88.0 Allergy status to penicillin; Z88.2 Allergy status to sulfonamides
CPT/HCPCS: 36415; 74177; 80053; 81001; 83690; 85007; 85027; 86140; 87086; 96361; 96374; 96375; 99284-25; A9270-GY; J1170; J1885; J2405; J3490; J7030; Q9967

== ENCOUNTER 2021-11-15 18:19 | Emergency (ER) | payer MEDICAID ==
[2021-11-15 19:21] VITALS: BP 139/85; PULSE 103
[2021-11-15] MEDS ORDERED: Ketorolac 15 MG/ML SDV IVPUSH ONE (20:12)
[2021-11-15] MEDS ORDERED: Lactated Ringers 1,000 ML IV ONE (20:12)
[2021-11-15] MEDS ORDERED: Metoclopramide 10 MG/2 ML SDV IVPUSH ONE (20:13)
[2021-11-15] MEDS ORDERED: diphenhydrAMINE 50 MG/ML SDV IVPUSH ONE (20:13)
== END 2021-11-15 23:22 | disposition home or self-care (01) ==
LOC: JD.ED 18:19
DX: U07.1 COVID-19 (principal); H10.9 Unspecified conjunctivitis; E03.9 Hypothyroidism, unspecified; E66.9 Obesity, unspecified; Z68.30 Body mass index [BMI] 30.0-30.9, adult; Z88.0 Allergy status to penicillin; Z88.2 Allergy status to sulfonamides; Z88.6 Allergy status to analgesic agent; Z79.899 Other long term (current) drug therapy; Z86.16 Personal history of COVID-19; Z90.49 Acquired absence of other specified parts of digestive tract; Z90.710 Acquired absence of both cervix and uterus; Z87.891 Personal history of nicotine dependence
CPT/HCPCS: 36415; 74177; 80053; 81001; 83605; 83690; 85025; 87635; 96374; 96375; 99284; J1200; J1885; J2765; J7120; U0002

== ENCOUNTER 2022-10-04 17:15 | Emergency (ER) | payer MEDICAID ==
[2022-10-04] MEDS ORDERED: Sodium Chloride 0.9% 10 ML Syringe FLUSH PRN (17:42)
[2022-10-04] MEDS ORDERED: Ketorolac 30 MG/ML SDV IVPUSH ONE (17:42)
[2022-10-04 18:08] LABS: APPEARANCE,URINE SLT CLOUDY (Clear); BILIRUBIN,URINE NEGATIVE (Negative); COLOR,URINE YELLOW (Yellow); GLUCOSE,URINE NEGATIVE (Negative); KETONES,URINE NEGATIVE (Negative); LEUKOCYTE ESTERASE,URINE NEGATIVE (Negative); NITRITE,URINE NEGATIVE (Negative); OCCULT BLOOD,URINE NEGATIVE (Negative); PH,URINE 5.5 (5.0-8.0); PROTEIN,URINE NEGATIVE (Negative); UROBILINOGEN,URINE 0.2 (0.2-1.0)
[2022-10-04 18:18] LABS: BASOPHILS ABSOLUTE AUTO 0.06 K/mm3 (0.01-0.08); BASOPHILS PERCENT AUTO 0.5 % (0.1-1.2); EOSINOPHILS ABSOLUTE AUTO 0.57 K/mm3 (0.04-0.36); EOSINOPHILS PERCENT AUTO 4.5 (0.7-5.8); HEMATOCRIT 41.5 % (34.1-44.9); HEMOGLOBIN 13.6 gm/dl (11.2-15.7); IMMATURE GRAN ABSOLUTE AUTO 0.02 K/mm3 (0.00-0.10); IMMATURE GRAN PERCENT AUTO 0.2 % (<=1.0); LYMPHOCYTES ABSOLUTE AUTO 3.81 K/mm3 (1.18-3.74); LYMPHOCYTES PERCENT AUTO 30.4 % (19.3-51.7); MEAN CORPUSCULAR HEMOGLOBIN 27.7 pg (25.6-32.2); MEAN CORPUSCULAR HGB CONC 32.8 g/dl (32.2-35.5); MEAN CORPUSCULAR VOLUME 84.5 fl (79.4-94.8); MEAN PLATELET VOLUME 12.4 fl (9.4-12.3); MONOCYTES ABSOLUTE AUTO 0.97 K/mm3 (0.24-0.36); MONOCYTES PERCENT AUTO 7.7 % (4.7-12.5); NEUTROPHILS ABSOLUTE AUTO 7.12 K/mm3 (1.56-6.13); NEUTROPHILS PERCENT AUTO 56.7 % (34.0-71.1); PLATELET COUNT,PLT 323 K/mm3 (182-369); RED BLOOD CELL COUNT 4.91 M/mm3 (3.98-5.22); WHITE BLOOD CELL COUNT,WBC 12.55 K/mm3 (3.98-10.04)
[2022-10-04 18:45] LABS: A/G RATIO 0.8 (1-2); ALANINE AMINOTRANSFERASE,ALT 25 U/L (14-59); ALBUMIN 3.4 g/dl (3.4-5.0); ALKALINE PHOSPHATASE 56 U/L (46-116); ANION GAP 14.6 (5-15); ASPARTATE AMNIOTRANSFERASE,AST 13 U/L (15-37); BILIRUBIN TOTAL 0.3 mg/dL (0.2-1.0); BLOOD UREA NITROGEN,BUN 11 mg/dL (7-18); BUN/CREATININE RATIO 12.2 (14-18); CALCIUM 8.7 mg/dL (8.5-10.1); CARBON DIOXIDE,CO2 25 mEq/L (21-32); CHLORIDE,CL 106 mEq/L (98-107); CREATININE 0.9 mg/dL (0.55-1.02); ESTIMATED GFR 82 mL/min (>60); GLUCOSE RANDOM 111 mg/dL (70-99); POTASSIUM,K 3.6 mEq/L (3.5-5.1); PROTEIN TOTAL,TP 7.8 g/dl (6.4-8.2); SODIUM,NA 142 mEq/L (136-145)
[2022-10-04 19:01] LABS: BACTERIA,URINE MANY /hpf (FEW); MUCUS,URINE MODERATE /hpf (FEW); RBC,URINE 0-5 /hpf (0-5); SQUAMOUS EPITHELIAL CELLS,UR 30-40 /hpf (0-5); WBC,URINE 0-5 /hpf (0-5)
[2022-10-04] MEDS ORDERED: HYDROmorphone 0.5 MG/0.5 ML Syringe IVPUSH ONE (19:11)
[2022-10-04] MEDS ORDERED: Cyclobenzaprine 10 MG Tab PO ONE (19:11)
[2022-10-04 19:52] VITALS: BP 114/68; PULSE 69
== END 2022-10-04 19:50 | disposition home or self-care (01) ==
LOC: JD.ED 17:15
DX: S39.012A Strain of muscle, fascia and tendon of lower back, initial encounter (principal); E03.9 Hypothyroidism, unspecified; E66.9 Obesity, unspecified; Z86.16 Personal history of COVID-19; Z88.0 Allergy status to penicillin; Z88.5 Allergy status to narcotic agent; Z88.2 Allergy status to sulfonamides; Z79.899 Other long term (current) drug therapy
CPT/HCPCS: 36415; 74176; 80053; 81001; 85025; 96374; 96375; 99284; A9270; J1170; J1885; J3490

== ENCOUNTER 2022-10-31 07:01 | Day surgery (SDC) | payer MEDICAID ==
[~2022-10-31 07:01] MED LIST changes: +Lactated Ringers 1,000 ML ONE; -Lidocaine 1% 4 ML ONE; -Lidocaine 1%/Sod Bicarbonate in NS 8.4% 1 ML Syringe PRN; +Midazolam 1 MG/ML 2 ML SDV ONE; +Sodium Chloride 0.9% 10 ML Syringe FLUSH SCH
[2022-10-31] MEDS ORDERED: Ondansetron 4 MG/2 ML SDV ONE (07:21)
[2022-10-31] MEDS ORDERED: Ondansetron 4 MG/2 ML SDV IVPUSH PRN (09:35)
[2022-10-31 11:19] VITALS: BP 127/79; PULSE 80
== END 2022-10-31 11:03 | disposition home or self-care (01) ==
LOC: JD.SDS 07:01
PROVIDERS: ATTEND Surgery
DX: K63.5 Polyp of colon (principal); K62.1 Rectal polyp; K57.30 Diverticulosis of large intestine without perforation or abscess without bleeding; K57.32 Diverticulitis of large intestine without perforation or abscess without bleeding; K43.6 Other and unspecified ventral hernia with obstruction, without gangrene; F41.9 Anxiety disorder, unspecified; F32.A Depression, unspecified; E03.9 Hypothyroidism, unspecified; G43.909 Migraine, unspecified, not intractable, without status migrainosus; E66.01 Morbid (severe) obesity due to excess calories; Z88.0 Allergy status to penicillin; Z88.2 Allergy status to sulfonamides; Z88.8 Allergy status to other drugs, medicaments and biological substances; Z79.890 Hormone replacement therapy; Z79.899 Other long term (current) drug therapy; Z90.710 Acquired absence of both cervix and uterus; Z98.51 Tubal ligation status; Z87.891 Personal history of nicotine dependence; Z68.42 Body mass index [BMI] 45.0-49.9, adult
CPT/HCPCS: 45385; J2250; J2405; J2704; J3010; J7120; 00811

== ENCOUNTER 2022-11-05 10:41 | Observation (INO) | payer MEDICAID ==
[~2022-11-05 10:41] MED LIST changes: -Lactated Ringers 1,000 ML IV SCH; -Lactated Ringers 1,000 ML ONE; -Midazolam 1 MG/ML 2 ML SDV ONE; -Propofol 200 MG/20 ML SDV ONE; -Sodium Chloride 0.9% 10 ML Syringe FLUSH SCH; -fentaNYL 100 MCG/2 ML SDV ONE
[2022-11-05] MEDS ORDERED: Bupivacaine 0.5%/EPINEPHrine 1:200,000 50 ML MDV ONE ×2 (10:47→10:48)
[2022-11-05] MEDS ORDERED: Lidocaine 1% 50 ML MDV ONE (10:47)
[2022-11-05] MEDS: Lactated Ringers 1,000 ML IV SCH ×2 (10:50→18:31)
[2022-11-05 11:04] LABS: BASOPHILS ABSOLUTE AUTO 0.08 K/mm3 (0.01-0.08); BASOPHILS PERCENT AUTO 0.9 % (0.1-1.2); EOSINOPHILS PERCENT AUTO 6.5 (0.7-5.8); HEMATOCRIT 43.5 % (34.1-44.9); HEMOGLOBIN 14.4 gm/dl (11.2-15.7); IMMATURE GRAN ABSOLUTE AUTO 0.02 K/mm3 (0.00-0.10); IMMATURE GRAN PERCENT AUTO 0.2 % (<=1.0); LYMPHOCYTES ABSOLUTE AUTO 3.56 K/mm3 (1.18-3.74); LYMPHOCYTES PERCENT AUTO 38.7 % (19.3-51.7); MEAN CORPUSCULAR HEMOGLOBIN 27.8 pg (25.6-32.2); MEAN CORPUSCULAR HGB CONC 33.1 g/dl (32.2-35.5); MEAN PLATELET VOLUME 12.4 fl (9.4-12.3); MONOCYTES ABSOLUTE AUTO 0.68 K/mm3 (0.24-0.36); MONOCYTES PERCENT AUTO 7.4 % (4.7-12.5); NEUTROPHILS ABSOLUTE AUTO 4.26 K/mm3 (1.56-6.13); NEUTROPHILS PERCENT AUTO 46.3 % (34.0-71.1); PLATELET COUNT,PLT 318 K/mm3 (182-369); RED BLOOD CELL COUNT 5.18 M/mm3 (3.98-5.22)
[2022-11-05] MEDS ORDERED: Scopolamine 1.5 MG Transdermal Patch TRDERM PRN (11:20)
[2022-11-05 11:29] LABS: CALCIUM 8.9 mg/dL (8.5-10.1); CREATININE 0.7 mg/dL (0.55-1.02); EST CRCL DRUG DOSING (CG) 102.85 mL/min
[2022-11-05] MEDS ORDERED: ceFAZolin 2 GM Vial ONE (11:35)
[2022-11-05] MEDS ORDERED: Propofol 200 MG/20 ML SDV ONE (11:35)
[2022-11-05] MEDS ORDERED: Ketorolac 30 MG/ML SDV ONE (11:35)
[2022-11-05] MEDS ORDERED: Ondansetron 4 MG/2 ML SDV ONE (11:35)
[2022-11-05] MEDS ORDERED: Lactated Ringers 1,000 ML ONE (11:35)
[2022-11-05] MEDS ORDERED: Rocuronium 50 MG/5 ML Vial ONE (11:35)
[2022-11-05] MEDS ORDERED: Succinylcholine 200 MG/10 ML MDV ONE (11:35)
[2022-11-05] MEDS ORDERED: Dexamethasone 4 MG/ML 5 ML MDV ONE (11:35)
[2022-11-05] MEDS ORDERED: Ketamine 500 mg/10 ML MDV ONE (11:36)
[2022-11-05] MEDS ORDERED: Midazolam 1 MG/ML 2 ML SDV ONE (11:36)
[2022-11-05] MEDS ORDERED: fentaNYL 250 MCG/5 ML SDV ONE ×2 (11:36→13:51)
[2022-11-05] MEDS ORDERED: HYDROmorphone 0.5 MG/0.5 ML Syringe ONE (13:48)
[2022-11-05] MEDS ORDERED: Labetalol 100 MG/20 ML MDV ONE (13:49)
[2022-11-05] MEDS ORDERED: diphenhydrAMINE 50 MG/ML SDV ONE (13:54)
[2022-11-05] MEDS ORDERED: ePHEDrine 50 MG/ML SDV IVPUSH PRN (14:00)
[2022-11-05] MEDS ORDERED: Ondansetron 4 MG/2 ML SDV IVPUSH PRN (14:00)
[2022-11-05] MEDS ORDERED: Phenylephrine 1% 10 MG/ML SDV IVPUSH PRN (14:00)
[2022-11-05] MEDS ORDERED: Albuterol 0.083% 2.5 MG/3 ML Neb Soln NEB PRN (14:00)
[2022-11-05] MEDS ORDERED: Sugammadex Sodium 200 MG/2 ML VIAL ONE (14:07)
[2022-11-05] MEDS ORDERED: hydrALAZINE 20 MG/ML SDV ONE (14:11)
[2022-11-05] MEDS: HYDROmorphone 0.5 MG/0.5 ML Syringe IVPUSH PRN ×2 (14:43→15:02)
[2022-11-05] MEDS: fentaNYL 100 MCG/2 ML SDV IVPUSH PRN ×4 (14:45→15:27)
[2022-11-05] MEDS ORDERED: Ibuprofen 400 MG Tab PO PRN (14:56)
[2022-11-05] MEDS ORDERED: Acetaminophen 325 MG Tab PO PRN (14:56)
[2022-11-05] MEDS ORDERED: oxyCODONE 5 MG Tab PO PRN (14:57)
[2022-11-05] MEDS ORDERED: Docusate Sodium 100 MG Cap PO PRN (15:53)
[2022-11-05] MEDS ORDERED: LORazepam 2 MG/ML SDV IVPUSH PRN (16:02)
[2022-11-05] MEDS: Morphine 4 MG/ML Syringe IVPUSH PRN ×4 (16:26→23:04)
[2022-11-05] MEDS: Sodium Chloride 0.9% 10 ML Syringe FLUSH SCH (16:31)
[2022-11-05] MEDS: Acetaminophen 325 MG Tab PO SCH ×2 (16:53→23:03)
[2022-11-05] MEDS: ceFAZolin 1 GM in Sodium Chloride 0.9% 50 ML IV SCH (20:15)
[2022-11-05] MEDS: ceFAZolin 2 GM in Sodium Chloride 0.9% 50 ML IV SCH (20:15)
[2022-11-05] MEDS: Enoxaparin 40 MG/0.4 ML Syringe SUBCUT SCH (20:25)
[2022-11-05] MEDS: Ibuprofen 600 MG Tab PO SCH (23:16)
[2022-11-06] MEDS: Ibuprofen 600 MG Tab PO SCH ×3 (03:56→15:26)
[2022-11-06] MEDS: ceFAZolin 2 GM in Sodium Chloride 0.9% 50 ML IV SCH (03:57)
[2022-11-06] MEDS: ceFAZolin 1 GM in Sodium Chloride 0.9% 50 ML IV SCH (03:57)
[2022-11-06] MEDS: oxyCODONE 5 MG Tab PO PRN ×2 (04:07→18:33)
[2022-11-06] MEDS: Acetaminophen 325 MG Tab PO SCH ×3 (05:08→15:30)
[2022-11-06] MEDS: Morphine 4 MG/ML Syringe IVPUSH PRN ×2 (06:47→09:51)
[2022-11-06] MEDS: Ondansetron 4 MG/2 ML SDV IVPUSH PRN ×2 (07:28→15:26)
[2022-11-06] MEDS ORDERED: Levothyroxine 100 MCG Tab PO SCH (09:00)
[2022-11-06] MEDS: Enoxaparin 40 MG/0.4 ML Syringe SUBCUT SCH (09:53)
[2022-11-06] MEDS: Lactated Ringers 1,000 ML IV SCH (09:59)
[2022-11-06 16:40] VITALS: PULSE 65
[2022-11-06 18:42] VITALS: BP 130/92
== END 2022-11-06 18:46 | disposition home or self-care (01) ==
LOC: JD.SDS 10:41 → JD.MS 16:02
PROVIDERS: ADMIT Surgery; ATTEND Surgery
DX: K43.6 Other and unspecified ventral hernia with obstruction, without gangrene (principal); G89.18 Other acute postprocedural pain; G43.909 Migraine, unspecified, not intractable, without status migrainosus; F41.9 Anxiety disorder, unspecified; F32.A Depression, unspecified; E03.9 Hypothyroidism, unspecified; E66.01 Morbid (severe) obesity due to excess calories; Z90.89 Acquired absence of other organs; Z90.710 Acquired absence of both cervix and uterus; Z98.51 Tubal ligation status; Z79.890 Hormone replacement therapy; Z79.899 Other long term (current) drug therapy; Z88.0 Allergy status to penicillin; Z88.2 Allergy status to sulfonamides; Z88.8 Allergy status to other drugs, medicaments and biological substances; Z86.718 Personal history of other venous thrombosis and embolism; Z68.42 Body mass index [BMI] 45.0-49.9, adult
CPT/HCPCS: 36415; 49594; 80048; 85025; 96372; 96374; 96375; 96376; 97161; 97530; A9270; G0378; J0330; J0360; J0690; J1100; J1170; J1200; J1650; J2001; J2250; J2270; J2405; J2704; J3010; J3490; J7120; 00832; 00840; C1781; J1885

== ENCOUNTER 2022-11-10 17:04 | Emergency (ER) | payer MEDICAID ==
[2022-11-10] MEDS ORDERED: Sodium Chloride 0.9% 10 ML Syringe FLUSH PRN (17:42)
[2022-11-10] MEDS ORDERED: Sodium Chloride 0.9% 1,000 ML IV ONE (17:42)
[2022-11-10] MEDS ORDERED: HYDROmorphone 0.5 MG/0.5 ML Syringe IVPUSH ONE (17:42)
[2022-11-10] MEDS ORDERED: Ondansetron 4 MG/2 ML SDV IVPUSH ONE ×2 (17:42→20:05)
[2022-11-10 18:29] LABS: BASOPHILS ABSOLUTE AUTO 0.05 K/mm3 (0.01-0.08); BASOPHILS PERCENT AUTO 0.4 % (0.1-1.2); EOSINOPHILS ABSOLUTE AUTO 0.79 K/mm3 (0.04-0.36); EOSINOPHILS PERCENT AUTO 5.6 (0.7-5.8); HEMATOCRIT 43.7 % (34.1-44.9); HEMOGLOBIN 14.4 gm/dl (11.2-15.7); IMMATURE GRAN ABSOLUTE AUTO 0.05 K/mm3 (0.00-0.10); IMMATURE GRAN PERCENT AUTO 0.4 % (<=1.0); LYMPHOCYTES ABSOLUTE AUTO 2.57 K/mm3 (1.18-3.74); LYMPHOCYTES PERCENT AUTO 18.2 % (19.3-51.7); MEAN CORPUSCULAR HEMOGLOBIN 27.7 pg (25.6-32.2); MEAN CORPUSCULAR VOLUME 84.2 fl (79.4-94.8); MEAN PLATELET VOLUME 12.2 fl (9.4-12.3); MONOCYTES ABSOLUTE AUTO 0.96 K/mm3 (0.24-0.36); MONOCYTES PERCENT AUTO 6.8 % (4.7-12.5); NEUTROPHILS ABSOLUTE AUTO 9.72 K/mm3 (1.56-6.13); NEUTROPHILS PERCENT AUTO 68.6 % (34.0-71.1); PLATELET COUNT,PLT 402 K/mm3 (182-369); RED BLOOD CELL COUNT 5.19 M/mm3 (3.98-5.22); WHITE BLOOD CELL COUNT,WBC 14.14 K/mm3 (3.98-10.04)
[2022-11-10] MEDS ORDERED: Iopamidol 755 Mg/ML 100 ML Bottle IVPUSH ONE (18:50)
[2022-11-10 18:55] LABS: A/G RATIO 0.7 (1-2); ALBUMIN 3.4 g/dl (3.4-5.0); ANION GAP 14.7 (5-15); BILIRUBIN TOTAL 0.4 mg/dL (0.2-1.0); BUN/CREATININE RATIO 13.8 (14-18); C-REACTIVE PROTEIN 6.5 mg/dL (<1.0); CALCIUM 9.2 mg/dL (8.5-10.1); CREATININE 0.8 mg/dL (0.55-1.02); EST CRCL DRUG DOSING (CG) 86.63 mL/min; POTASSIUM,K 3.7 mEq/L (3.5-5.1); PROTEIN TOTAL,TP 8.3 g/dl (6.4-8.2)
[2022-11-10 19:00] LABS: LACTIC ACID 1.7 mmol/L (0.4-2.0)
[2022-11-10] MEDS ORDERED: Sodium Chloride 0.9% 100 ML IV SCH (19:00)
[2022-11-10 19:10] VITALS: PULSE 82
[2022-11-10] MEDS ORDERED: HYDROmorphone 1 MG/ML Syringe IVPUSH ONE (20:05)
[2022-11-10] MEDS ORDERED: Cephalexin 500 MG Cap PO ONE (21:12)
[2022-11-10 21:20] VITALS: BP 127/42
== END 2022-11-10 21:19 | disposition home or self-care (01) ==
LOC: JD.ED 17:04
DX: G89.18 Other acute postprocedural pain (principal); R10.9 Unspecified abdominal pain; E03.9 Hypothyroidism, unspecified; E66.9 Obesity, unspecified; Z68.42 Body mass index [BMI] 45.0-49.9, adult; Z86.16 Personal history of COVID-19; Z88.0 Allergy status to penicillin; Z88.5 Allergy status to narcotic agent; Z88.2 Allergy status to sulfonamides; Z79.899 Other long term (current) drug therapy
CPT/HCPCS: 36415; 74177; 80053; 83605; 85025; 86140; 96361; 96374; 96375; 96376; 99284; A9270; J1170; J2405; J3490; J7030; Q9967

== ENCOUNTER 2022-11-14 16:44 | Emergency (ER) | payer MEDICAID ==
[2022-11-14] MEDS ORDERED: Sodium Chloride 0.9% 10 ML Syringe FLUSH PRN (17:12)
[2022-11-14] MEDS ORDERED: Ketorolac 30 MG/ML SDV IVPUSH ONE (17:12)
[2022-11-14 18:35] LABS: BASOPHILS ABSOLUTE AUTO 0.06 K/mm3 (0.01-0.08); BASOPHILS PERCENT AUTO 0.5 % (0.1-1.2); EOSINOPHILS ABSOLUTE AUTO 0.58 K/mm3 (0.04-0.36); EOSINOPHILS PERCENT AUTO 4.8 (0.7-5.8); HEMATOCRIT 40.1 % (34.1-44.9); HEMOGLOBIN 13.2 gm/dl (11.2-15.7); IMMATURE GRAN ABSOLUTE AUTO 0.04 K/mm3 (0.00-0.10); IMMATURE GRAN PERCENT AUTO 0.3 % (<=1.0); LYMPHOCYTES ABSOLUTE AUTO 3.08 K/mm3 (1.18-3.74); LYMPHOCYTES PERCENT AUTO 25.2 % (19.3-51.7); MEAN CORPUSCULAR HGB CONC 32.9 g/dl (32.2-35.5); MEAN CORPUSCULAR VOLUME 85.1 fl (79.4-94.8); MEAN PLATELET VOLUME 11.9 fl (9.4-12.3); MONOCYTES ABSOLUTE AUTO 1.12 K/mm3 (0.24-0.36); MONOCYTES PERCENT AUTO 9.2 % (4.7-12.5); NEUTROPHILS ABSOLUTE AUTO 7.32 K/mm3 (1.56-6.13); PLATELET COUNT,PLT 433 K/mm3 (182-369); RED BLOOD CELL COUNT 4.71 M/mm3 (3.98-5.22)
[2022-11-14 18:44] LABS: A/G RATIO 0.8 (1-2); ALANINE AMINOTRANSFERASE,ALT 23 U/L (14-59); ALBUMIN 3.5 g/dl (3.4-5.0); ALKALINE PHOSPHATASE 62 U/L (46-116); ANION GAP 10.6 (5-15); ASPARTATE AMNIOTRANSFERASE,AST 14 U/L (15-37); BILIRUBIN TOTAL 0.3 mg/dL (0.2-1.0); BLOOD UREA NITROGEN,BUN 15 mg/dL (7-18); C-REACTIVE PROTEIN 1.7 mg/dL (<1.0); CARBON DIOXIDE,CO2 26 mEq/L (21-32); CHLORIDE,CL 102 mEq/L (98-107); ESTIMATED GFR 73 mL/min (>60); GLUCOSE RANDOM 103 mg/dL (70-99); POTASSIUM,K 3.6 mEq/L (3.5-5.1); PROTEIN TOTAL,TP 7.9 g/dl (6.4-8.2); SODIUM,NA 135 mEq/L (136-145)
[2022-11-14 19:22] VITALS: BP 132/74; PULSE 89
== END 2022-11-14 19:20 | disposition home or self-care (01) ==
LOC: JD.ED 16:44
DX: L02.211 Cutaneous abscess of abdominal wall (principal); E03.9 Hypothyroidism, unspecified; E66.9 Obesity, unspecified; Z86.16 Personal history of COVID-19; Z88.0 Allergy status to penicillin; Z88.5 Allergy status to narcotic agent; Z88.2 Allergy status to sulfonamides; Z79.899 Other long term (current) drug therapy
CPT/HCPCS: 36415; 76705; 80053; 85025; 86140; 96374; 99284; J1885; J3490

== ENCOUNTER 2022-11-20 10:04 | Emergency (ER) | payer MEDICAID ==
[2022-11-20] MEDS ORDERED: Sodium Chloride 0.9% 10 ML Syringe FLUSH PRN (10:19)
[2022-11-20] MEDS ORDERED: methylPREDNISolone Sodium Succinate 125 MG/2 ML SDV IVPUSH ONE (10:20)
[2022-11-20] MEDS ORDERED: diphenhydrAMINE 50 MG/ML SDV IVPUSH ONE (10:20)
[2022-11-20] MEDS ORDERED: Famotidine 20 MG/2 ML SDV IVPUSH ONE (10:20)
[2022-11-20 11:46] VITALS: BP 114/65; PULSE 77
== END 2022-11-20 11:46 | disposition home or self-care (01) ==
LOC: JD.ED 10:04
DX: T78.1XXA Other adverse food reactions, not elsewhere classified, initial encounter (principal); E03.9 Hypothyroidism, unspecified; E66.9 Obesity, unspecified; Z68.42 Body mass index [BMI] 45.0-49.9, adult; Z88.0 Allergy status to penicillin; Z88.5 Allergy status to narcotic agent; Z88.2 Allergy status to sulfonamides; Z79.899 Other long term (current) drug therapy; Z86.16 Personal history of COVID-19
CPT/HCPCS: 96374; 96375; 99283; J1200; J2930; J3490; 99284